=== PATIENT | female | born 1945 | race Caucasian/White ===

== ENCOUNTER → 2016-09-13 | Outpatient (CLI) | payer OTHER ==
[~2016-09-13] MED LIST: ALPR-411 PO; B-CO-25 PO; BUSP5TAB59 PO; CALC600T9 PO; CHOL100010 PO; CHOL1TAB42 PO; METO1TAB66 PO; MULT-190 PO; MULT-506 PO; OMEG10007 PO; PRED1SUS3 OPL
--- NOTE | 2016-09-21 08:25 | CODING QUERY MEDICAL NECESSITY ---
SUPPORTING DIAGNOSIS NEEDED A supporting diagnosis is required for the test/procedure performed on this patient in order for us to be reimbursed by the patient's insurance. Please provide a supporting diagnosis for the following test/procedure listed below next to the test name along with your signature. *If there is no additional diagnosis for this patient that would support the following test/procedure please document that below next to the test/procedure. Test(s)/Procedure(s) that require a supporting diagnosis: * DXA BONE DENSITY DIAGNOSIS: * DOS: 09/13/16 Provider Signature: Date: Thank you Deann Ndiaye Health Information Management Once completed, please kindly fax back to [phone] For questions please call [phone]
== END | disposition home or self-care (01) ==
LOC: C.MAMM 15:00
PROVIDERS: ATTEND Nurse Practitioner Family
DX: M85.80 Other specified disorders of bone density and structure, unspecified site (principal); R29.6 Repeated falls; N91.2 Amenorrhea, unspecified; Z82.62 Family history of osteoporosis

== ENCOUNTER → 2016-12-27 | Outpatient (CLI) | payer OTHER ==
[~2016-12-27] MED LIST changes: +METO-452 PO; -METO1TAB66 PO
[2016-12-27 09:42] LABS: BASO % 0.7 %; BASO ABS # 0.03 K/uL (0-0.2); COMPLETE YES; EOS % 2.9 %; HEMATOCRIT 41.3 % (37-47); LYMPH % 38.5 %; MEAN CELL VOLUME 94.5 fL (80-100); MEAN CORPUSCULAR HEMOGLOBIN 31.6 pg (25-34); MEAN CORPUSCULAR HGB CONC 33.4 g/dl (32-36); MEAN PLATELET VOLUME 9.7 fL (7.4-10.4); MONO % 9.6 %; NEUT % 48.3 %; PLATELET COUNT 219 K/uL (130-400); RED BLOOD COUNT 4.37 M/uL (4.2-5.4); WHITE BLOOD COUNT 4.16 K/uL (4.8-10.8)
[2016-12-27 10:49] LABS: ALT/SGPT 19 U/L (12-78); AST/SGOT 12 U/L (15-37); BLOOD UREA NITROGEN 15 mg/dl (7-18); BUN/CREATININE RATIO 18.3 (10-20); CALCIUM 9.2 mg/dl (8.5-10.1); CARBON DIOXIDE 26 mmol/L (21-32); CHLORIDE 104 mmol/L (98-107); CREATININE 0.84 mg/dl (0.60-1.20); GLUCOSE 98 mg/dl (70-99); MAGNESIUM 2.2 mg/dl (1.8-2.4); POTASSIUM 4.1 mmol/L (3.5-5.1); SODIUM 139 mmol/L (136-145)
[2016-12-27 10:53] LABS: ALB/GLOB RATIO 1.3 (0.9-2); ALKALINE PHOSPHATASE 60 U/L (45-117); CHOLESTEROL 207 mg/dl (0-200); CHOLESTEROL/HDL RATIO 3.1; HDL CHOLESTEROL 67 mg/dl; LDL CHOLESTEROL CALCULATED 108 mg/dl; TRIGLYCERIDES 160 mg/dl (0-150); VERY LOW DENSITY LIPOPROT CALC 32 mg/dl
== END | disposition home or self-care (01) ==
LOC: C.LAB1850 08:04
PROVIDERS: ATTEND Nurse Practitioner Family
DX: F41.8 Other specified anxiety disorders (principal); I10 Essential (primary) hypertension; E55.9 Vitamin D deficiency, unspecified; M85.80 Other specified disorders of bone density and structure, unspecified site; E78.5 Hyperlipidemia, unspecified; R73.9 Hyperglycemia, unspecified

== ENCOUNTER → 2017-12-26 | Outpatient (CLI) | payer OTHER ==
[2017-12-26 09:40] LABS: BASO % 0.7 %; BASO ABS # 0.03 K/uL (0-0.2); EOS % 3.9 %; EOS ABS # 0.16 K/uL (0-0.5); HEMOGLOBIN 13.8 g/dL (12.0-16.0); LYMPH % 41.7 %; LYMPH ABS # 1.71 K/uL (1.2-3.4); MEAN CELL VOLUME 93.5 fL (80-100); MEAN CORPUSCULAR HEMOGLOBIN 32.2 pg (25-34); MEAN CORPUSCULAR HGB CONC 34.5 g/dl (32-36); MEAN PLATELET VOLUME 9.7 fL (7.4-10.4); MONO % 7.6 %; MONO ABS # 0.31 K/uL (0.11-0.59); NEUT % 46.1 %; NEUT ABS # 1.89 K/uL (1.4-6.5); PLATELET COUNT 225 K/uL (130-400); RED CELL DISTRIBUTION WIDTH SD 40.4 fL (36.4-46.3)
[2017-12-26 09:54] LABS: HEMOGLOBIN A1C 5.6 % (4.5-5.6)
[2017-12-26 10:05] LABS: ALBUMIN 3.7 gm/dl (3.4-5.0); ALT/SGPT 18 U/L (12-78); AST/SGOT 12 U/L (15-37); BLOOD UREA NITROGEN 9 mg/dl (7-18); CARBON DIOXIDE 29 mmol/L (21-32); CREATININE 0.79 mg/dl (0.60-1.20); GLUCOSE 84 mg/dl (70-99); POTASSIUM 3.8 mmol/L (3.5-5.1); SODIUM 136 mmol/L (136-145)
[2017-12-26 10:09] LABS: ALKALINE PHOSPHATASE 54 U/L (45-117); CHOLESTEROL 168 mg/dl (0-200); LDL CHOLESTEROL CALCULATED 71 mg/dl; TOTAL PROTEIN 7.1 gm/dl (6.4-8.2)
== END | disposition home or self-care (01) ==
LOC: C.LAB1850 08:12
PROVIDERS: ATTEND Nurse Practitioner Family
DX: F41.8 Other specified anxiety disorders (principal); I10 Essential (primary) hypertension; R73.9 Hyperglycemia, unspecified; E78.5 Hyperlipidemia, unspecified; M85.80 Other specified disorders of bone density and structure, unspecified site

== ENCOUNTER 2021-11-08 18:29 | Inpatient (IN) ==
[2021-11-08] MEDS ORDERED: SODIUM CHLORIDE 0.9% 500 ML IV SCH (18:45)
--- NOTE | 2021-11-08 18:48 | Emergency Department Note ---
Impression & Plan Overdose on Tylenol, Naproxen overdose, Elevated transaminase level, Hypomagnesemia, Memory changes ED Provider Note Provider: Steven Quezada MD DATE OF SERVICE: 11/08/2021 CHIEF COMPLAINT: Overdose HISTORY OF PRESENT ILLNESS: Patient is a 75-year-old female with a history of hyperlipidemia, hypertension, depression anxiety presenting here today via ambulance from her home. EMS report the patient evidently took too many tablets of medication overnight and today. They report the patient took 8 tablets of Pooja-Campbell plus, and approximately half bottles of Tylenol extended release (650mg XR -- bottle 24 cap size) and Aleve (220mg -- 100 cap size). EMS reports the patient took the Pooja-Campbell around midnight and they Tylenol and Aleve over the course of the last several hours to afternoon. They note the patient was weak standing and they had to assist her significantly to the stretcher. An IV was established a small amount of IV fluids given prior to arrival. Patient herself states she took the Pooja-Campbell yesterday but cannot give me a firm time but thinks it was 6-8 tablets. She then states that she did take the Tylenol and Aleve bottles but is unsure exactly how many and when exactly this occurred. Patient states she is unsure why she took them. She states that she was not trying to harm her self. Patient states that she loves her family. Patient states a little earlier she had some nausea but denies currently. Denies any pain at this time. Patient denies drowsiness but states she does feel little bit cool. Patient does report some tinnitus. Patient states that she believes she is fine and just wants to go home. She denies that he has memory issues and states that she does not know the president's name because he is a little. reports the patient over the past 18 months is stopped her home medications and has become very forgetful of recent events. He reports that she does not eat very much and has been having mood swings with high and low moods. Has been reports at night the patient seems to occasionally wander around the house and maybe have hallucinations. He states that he believes she took between 4 to 6 tablets or packets of the Pooja-Campbell last night before midnight when he confiscated them. He was gone between 11:30 AM and 3 PM this afternoon and came back to find her with the Tylenol bottle and an empty bottle of Aleve in the garbage can. He is unsure how much was in these bottles. He reports that he is concerned about her memory and that she may have a dementia component. He does not believe that she was trying to harm her self but that she just does not understand what is going on at times. Reports at times she is having some incontinence. Discussion with him he feels fairly confident that she did not take any medicines after 3 PM when he found her. She did have some stomach upset and gurgling by his report earlier. REVIEW OF SYSTEMS: A total of 10 review of systems was obtained and negative except as stated above in the HPI. PAST MEDICAL HISTORY: As noted above MEDICATIONS: Patient reportedly not taking any prescription medications in the last 18 months. OTC overdose as above. SOCIAL HISTORY: Lives at home with PHYSICAL EXAM: GENERAL: alert and oriented to person but reports that the 2020. Does know the month is November. She is in no acute distress on stretcher resting with eyes closed initially upon entering the room Head: normocephalic and atraumatic EYES: No injection, discharge or icterus. PERRL, EOMI. NECK: Trachea midline. Supple. ENT: Mucous membranes pink and moist. LUNGS: Airway patent. No retractions. Breath sounds clear with good air entry bilaterally. HEART: Regular rate and rhythm. No chest wall tenderness ABDOMEN: Soft and non-tender, without guarding or rebound. SKIN: Acyanotic, warm, dry, without rashes EXTREMITIES: Without swelling, tenderness or deformity NEUROLOGICAL: No focal deficits. No aphasia. No facial droop or slurred speech. No clonus appreciated. Psych: Patient denies SI or HI or hallucinations. Patient does at times seem a bit frustrated with questioning. Not responding to external stimuli during exam. Denies hallucinations to me. Flattened affect. EK bpm normal sinus rhythm. No PVC or PAC. No acute ST segment elevation or depression with a QTC of 504. CONTINUOUS CARDIAC MONITORING: was ordered and showed a heart rate of 70s to 90s bpm in normal sinus rhythm Patient's laboratory studies and imaging reviewed. Differential includes Mood disorder, infection, hypoglycemia, electrolyte abnormalities, cardiac sources, intracerebral event, toxicologic, trauma, neurologic, as well as other pathologies. IMPRESSION/MEDICAL DECISION MAKING: Patient presents with overdose of medication. Some Pooja-Campbell last night and then possibly some Aleve and Tylenol this afternoon. I provides additional inf ormation to the patient is a poor historian regarding amount or timing. There is some question of some decline over the past 18 months and has concerns regarding possible dementia. Patient denies SI or HI to me. I do question if she has capacity to really understand it at this may be more of a dementia picture. Laboratory studies and EKG were obtained. Obvious concern regarding Tylenol and aspirin ingestion. Given report of gradual memory decline a CT of the head to be completed exclude acute intracranial abnormality or obvious mass, otherwise no trauma history reported. Radiology some cerebral atrophy but no other acute intracranial abnormalities noted. Reassuring abdominal exam at this time. Blood work without anemia or leukocytosis. INR 1.3. Sodium within normal limit s as is creatinine. Hemolysis of potassium and AST initially and will require redraw. Lipase not elevated. Bilirubin normal. ALT is elevated at 99 however; AST also later returns mildly elevated. Alcohol level undetectable. Negative Covid test. Was in control recommended lactate as well as repeat salicylate level. Salicylate level is downtrending and this is reassuring. Lactate mildly elevated with a slight anion gap. Given some IV fluids. Poison control recommended institution of 21-hour NAC protocol given the significant Tylenol elevation and unclear exact ingestion time --in agreement.. Repeat Tylenol level from approximately 5 hours after the latest possible ingestion is still severely elevated. Patient does have some ALT elevation noted. Patient and updated and patient was begrudgingly agreeable to stay. 21-hour NAC protocol ordered. Poison control recommended repeat EKG (given a QTC greater than 500ms) after magnesium supplemented. Hospitalist to be contacted. No significant acidosis on VBG. Mild hypokalemia noted and oral supplementation ordered. Patient evaluation after cleared from Tylenol overdose of memory and longer-term safety at home. DIAGNOSIS: Tylenol overdose, naproxen overdose, memory issues, elevated transaminases, hypomagnesemia, hypokalemia DISPOSITION: Hospitalist will evaluate for inpatient care. updated at bedside. Critical Care I have personally spent 48 minutes of critical care time in the direct management of this patient. This includes bedside care, interpretation of diagnostic studies, and testing, discussion with consultants, patient, and family members, and other required patient management activities. These 48 minutes is in excess of all separately billable procedures. Past Med/Surg History Medical History (Updated 11/08/21 @ 20:39 by Christy Bynum PA-C) Facial laceration History of DVT in adulthood Mild concussion Vertigo Surgical History No significant past surgical history Family History Father Heart failure Brother Aortic aneurysm Denies family history of Ovarian cancer Prostate cancer Myocardial infarction Breast cancer Colorectal cancer Social History Smoking Status: Never smoker Second Hand Exposure: No; Hx Alcohol Use: Yes Alcohol type: wine Hx Substance Use: No Preferred Language: Swedish Communication Ability: Effective Visual Impairment: No Limitations Hearing Ability: Normal marital status: Current Living Situation: Spouse and Family current occupational status: retired Feels Safe at Home: Yes Childhood Exposure to Second-Hand Smoke: No Diet Comment: no specifis diet Dental Care, Regularly: Yes Physical Activity Frequency: Daily Physical Activity Frequency Comment: walking Seatbelt Use: always Do you think of yourself as: straight/heterosexual Allergies Allergies Allergy/AdvReac Type Severity Reaction Status Date / Time Fish Containing Products Allergy Intermediate FACIAL Verified 11/08/21 19:40 SWELLING - ANCHOVIES naproxen Allergy Intermediate HIVES AND Verified 11/08/21 19:40 FACIAL SWELLING estrogens, conjugated AdvReac Unknown DVT Verified 11/08/21 19:40 Home Meds Home Medications Medication Instructions Recorded Confirmed acetaminophen 325 mg capsule 650 mg PO QID PRN 11/08/21 11/08/21 (Tylenol) aspirin-sod bicarb-citric acid 325 2 tab PO UD PRN 11/08/21 11/08/21 mg-1,916 mg-1,000 mg efferves tab (Pooja-Manuel Original) ibuprofen 200 mg tablet (Advil) 400 mg PO Q6H PRN 11/08/21 11/08/21 Results & Data (ED) Vital Signs Vital Signs - 24 hr 11/08/21 18:34 11/08/21 18:40 11/08/21 18:45 Temperature 36.6 C Temperature Source Oral Pulse Rate 82 Pulse Rate [Finger] 74 Pulse Rate from SpO2 Sensor Pulse Rhythm [Finger] Regular Respiratory Rate 17 16 Respiratory Effort / Characteristics Non-Labored Non-Labored Respiratory Depth Normal Normal Respiratory Pattern Regular Blood Pressure 130/81 Blood Pressure Mean 97 Pulse Oximetry 100 98 100 Oxygen Delivery Method Room Air Room Air Room Air Sepsis Recent Fever Within 48 Hours No Sepsis New/Unexplained Change in Mental Status N/A Sepsis Action Taken by Nursing No Action Required 11/08/21 18:46 11/08/21 19:59 11/08/21 20:00 Temperature Temperature Source Pulse Rate 80 79 Pulse Rate [Finger] Pulse Rate from SpO2 Sensor 80 85 Pulse Rhythm [Finger] Respiratory Rate 20 24 Respiratory Effort / Characteristics Respiratory Depth Respiratory Pattern Blood Pressure Blood Pressure Mean Pulse Oximetry 100 98 96 Oxygen Delivery Method Room Air Sepsis Recent Fever Within 48 Hours Sepsis New/Unexplained Change in Mental Status Sepsis Action Taken by Nursing Laboratory Data Result diagrams: 11/08/21 18:10 11/08/21 20:30 Lab Results 11/08/21 11/08/21 11/08/21 Range/Units 18:10 18:10 18:10 WBC 6.34 (4.8-10.8) K/uL RBC 4.74 (4.2-5.4) M/uL Hgb 15.2 (12.0-16.0) g/dL Hct 44.0 (37-47) % MCV 92.8 (80-100) fL MCH 32.1 (25-34) pg MCHC 34.5 (32-36) g/dL RDW Std Deviation 42.2 (36.4-46.3) fL RDW Coeff of Jac 12.4 (11.5-14.5) % Plt Count 299 (130-400) K/uL MPV 10.2 (7.4-10.4) fL Immature Gran % (Auto) 0.2 % Neut % (Auto) 74.4 % Lymph % (Auto) 15.1 % [place] % (Auto) 10.1 % Eos % (Auto) 0.0 % Baso % (Auto) 0.2 % Neut # (Auto) 4.72 (1.4-6.5) K/uL Lymph # (Auto) 0.96 L (1.2-3.4) K/uL [place] # (Auto) 0.64 H (0.11-0.59) K/uL Eos # (Auto) 0.00 (0-0.5) K/uL Baso # (Auto) 0.01 (0-0.2) K/uL Immature Gran # (Auto) 0.01 (0.00-0.02) K/uL PT 13.6 H (9.0-12.0) Seconds INR 1.3 H (0.9-1.1) APTT 24.6 (21.0-31.0) Seconds PTT Ratio 0.9 VBG pH (7.36-7.41) VBG pCO2 (38-50) mmHg VBG pO2 mmHg VBG HCO3 mmol/L VBG O2 Saturation % VBG Base Excess mEq/L Barometric Pressure mm/Hg Sodium (136-145) mmol/L Potassium (3.5-5.1) mmol/L Chloride (98-107) mmol/L Carbon Dioxide (21-32) mmol/L Anion Gap (3-11) BUN (6-23) mg/dl Creatinine (0.6-1.2) mg/dl Est Cr Clr Drug Dosing ml/min Est GFR ( Amer) ml/min Est GFR (Non-Af Amer) ml/min BUN/Creatinine Ratio (10-20) Glucose (70-99(Fasting)) mg/dl Lactate (0.4-2.0) mmol/L Calcium (8.5-10.1) mg/dl Magnesium (1.7-2.4) mg/dl Total Bilirubin (0.2-1.0) mg/dl AST (13-39) U/L ALT (7-52) U/L Alkaline Phosphatase (34-104) U/L Total Creatine Kinase (26-192) U/L Total Protein (6.0-8.3) gm/dl Albumin (3.4-5.0) gm/dl Globulin (2.5-4.0) gm/dl Albumin/Globulin Ratio (0.9-2) Lipase (11-82) U/L Salicylates 7.4 (3.0-30) mg/dl Acetaminophen 225 H* (10-30) ug/ml Ethyl Alcohol mg/dL (<10.0) mg/dl SARS-CoV-2, RNA, NAAT (NEGATIVE) 11/08/21 11/08/21 11/08/21 Range/Units 19:30 19:30 19:30 WBC (4.8-10.8) K/uL RBC (4.2-5.4) M/uL Hgb (12.0-16.0) g/dL Hct (37-47) % MCV (80-100) fL MCH (25-34) pg MCHC (32-36) g/dL RDW Std Deviation (36.4-46.3) fL RDW Coeff of Jac (11.5-14.5) % Plt Count (130-400) K/uL MPV (7.4-10.4) fL Immature Gran % (Auto) % Neut % (Auto) % Lymph % (Auto) % [place] % (Auto) % Eos % (Auto) % Baso % (Auto) % Neut # (Auto) (1.4-6.5) K/uL Lymph # (Auto) (1.2-3.4) K/uL [place] # (Auto) (0.11-0.59) K/uL Eos # (Auto) (0-0.5) K/uL Baso # (Auto) (0-0.2) K/uL Immature Gran # (Auto) (0.00-0.02) K/uL PT (9.0-12.0) Seconds INR (0.9-1.1) APTT (21.0-31.0) Seconds PTT Ratio VBG pH (7.36-7.41) VBG pCO2 (38-50) mmHg VBG pO2 mmHg VBG HCO3 mmol/L VBG O2 Saturation % VBG Base Excess mEq/L Barometric Pressure mm/Hg Sodium 136 (136-145) mmol/L Potassium (3.5-5.1) mmol/L Chloride 100 (98-107) mmol/L Carbon Dioxide 23 (21-32) mmol/L Anion Gap 13 H (3-11) BUN 9 (6-23) mg/dl Creatinine 0.80 (0.6-1.2) mg/dl Est Cr Clr Drug Dosing 48.2 ml/min Est GFR ( Amer) 83.6 ml/min Est GFR (Non-Af Amer) 72.1 ml/min BUN/Creatinine Ratio 11.3 (10-20) Glucose 129 H (70-99(Fasting)) mg/dl Lactate (0.4-2.0) mmol/L Calcium 8.9 (8.5-10.1) mg/dl Magnesium (1.7-2.4) mg/dl Total Bilirubin 0.7 (0.2-1.0) mg/dl AST (13-39) U/L ALT 99 H (7-52) U/L Alkaline Phosphatase 53 (34-104) U/L Total Creatine Kinase 86 (26-192) U/L Total Protein 6.3 (6.0-8.3) gm/dl Albumin 3.9 (3.4-5.0) gm/dl Globulin 2.4 L (2.5-4.0) gm/dl Albumin/Globulin Ratio 1.6 (0.9-2) Lipase 28 (11-82) U/L Salicylates 6.2 (3.0-30) mg/dl Acetaminophen 216 H* (10-30) ug/ml Ethyl Alcohol mg/dL < 10.0 (<10.0) mg/dl SARS-CoV-2, RNA, NAAT (NEGATIVE) 11/08/21 11/08/21 11/08/21 Range/Units 19:53 20:30 20:40 WBC (4.8-10.8) K/uL RBC (4.2-5.4) M/uL Hgb (12.0-16.0) g/dL Hct (37-47) % MCV (80-100) fL MCH (25-34) pg MCHC (32-36) g/dL RDW Std Deviation (36.4-46.3) fL RDW Coeff of Jac (11.5-14.5) % Plt Count (130-400) K/uL MPV (7.4-10.4) fL Immature Gran % (Auto) % Neut % (Auto) % Lymph % (Auto) % [place] % (Auto) % Eos % (Auto) % Baso % (Auto) % Neut # (Auto) (1.4-6.5) K/uL Lymph # (Auto) (1.2-3.4) K/uL [place] # (Auto) (0.11-0.59) K/uL Eos # (Auto) (0-0.5) K/uL Baso # (Auto) (0-0.2) K/uL Immature Gran # (Auto) (0.00-0.02) K/uL PT (9.0-12.0) Seconds INR (0.9-1.1) APTT (21.0-31.0) Seconds PTT Ratio VBG pH 7.46 H (7.36-7.41) VBG pCO2 35 L (38-50) mmHg VBG pO2 25 mmHg VBG HCO3 24 mmol/L VBG O2 Saturation < 60.0 % VBG Base Excess 0.7 mEq/L Barometric Pressure 731.5 mm/Hg Sodium (136-145) mmol/L Potassium 3.1 L (3.5-5.1) mmol/L Chloride (98-107) mmol/L Carbon Dioxide (21-32) mmol/L Anion Gap (3-11) BUN (6-23) mg/dl Creatinine (0.6-1.2) mg/dl Est Cr Clr Drug Dosing ml/min Est GFR ( Amer) ml/min Est GFR (Non-Af Amer) ml/min BUN/Creatinine Ratio (10-20) Glucose (70-99(Fasting)) mg/dl Lactate 2.7 H* (0.4-2.0) mmol/L Calcium (8.5-10.1) mg/dl Magnesium 1.6 L (1.7-2.4) mg/dl Total Bilirubin (0.2-1.0) mg/dl AST 69 H (13-39) U/L ALT (7-52) U/L Alkaline Phosphatase (34-104) U/L Total Creatine Kinase (26-192) U/L Total Protein (6.0-8.3) gm/dl Albumin (3.4-5.0) gm/dl Globulin (2.5-4.0) gm/dl Albumin/Globulin Ratio (0.9-2) Lipase (11-82) U/L Salicylates (3.0-30) mg/dl Acetaminophen (10-30) ug/ml Ethyl Alcohol mg/dL (<10.0) mg/dl SARS-CoV-2, RNA, NAAT (NEGATIVE) 11/08/21 Range/Units Unknown WBC (4.8-10.8) K/uL RBC (4.2-5.4) M/uL Hgb (12.0-16.0) g/dL Hct (37-47) % MCV (80-100) fL MCH (25-34) pg MCHC (32-36) g/dL RDW Std Deviation (36.4-46.3) fL RDW Coeff of Jac (11.5-14.5) % Plt Count (130-400) K/uL MPV (7.4-10.4) fL Immature Gran % (Auto) % Neut % (Auto) % Lymph % (Auto) % [place] % (Auto) % Eos % (Auto) % Baso % (Auto) % Neut # (Auto) (1.4-6.5) K/uL Lymph # (Auto) (1.2-3.4) K/uL [place] # (Auto) (0.11-0.59) K/uL Eos # (Auto) (0-0.5) K/uL Baso # (Auto) (0-0.2) K/uL Immature Gran # (Auto) (0.00-0.02) K/uL PT (9.0-12.0) Seconds INR (0.9-1.1) APTT (21.0-31.0) Seconds PTT Ratio VBG pH (7.36-7.41) VBG pCO2 (38-50) mmHg VBG pO2 mmHg VBG HCO3 mmol/L VBG O2 Saturation % VBG Base Excess mEq/L Barometric Pressure mm/Hg Sodium (136-145) mmol/L Potassium (3.5-5.1) mmol/L Chloride (98-107) mmol/L Carbon Dioxide (21-32) mmol/L Anion Gap (3-11) BUN (6-23) mg/dl Creatinine (0.6-1.2) mg/dl Est Cr Clr Drug Dosing ml/min Est GFR ( Amer) ml/min Est GFR (Non-Af Amer) ml/min BUN/Creatinine Ratio (10-20) Glucose (70-99(Fasting)) mg/dl Lactate (0.4-2.0) mmol/L Calcium (8.5-10.1) mg/dl Magnesium (1.7-2.4) mg/dl Total Bilirubin (0.2-1.0) mg/dl AST (13-39) U/L ALT (7-52) U/L Alkaline Phosphatase (34-104) U/L Total Creatine Kinase (26-192) U/L Total Protein (6.0-8.3) gm/dl Albumin (3.4-5.0) gm/dl Globulin (2.5-4.0) gm/dl Albumin/Globulin Ratio (0.9-2) Lipase (11-82) U/L Salicylates (3.0-30) mg/dl Acetaminophen (10-30) ug/ml Ethyl Alcohol mg/dL (<10.0) mg/dl SARS-CoV-2, RNA, NAAT NEGATIVE (NEGATIVE) Administered Medications Discontinued Medications Sodium Chloride (Nss) 500 mls @ 999 mls/hr IV .Q31M MUKESH Stop: 11/08/21 19:15 Last Admin: 11/08/21 19:11 Dose: 999 mls/hr Documented by: [id number] Acetylcysteine 7,550 mg/ (Dextrose) 237.75 mls @ 200 mls/hr IV ONCE ONE; Protocol Stop: 11/08/21 20:50 Last Admin: 11/08/21 20:32 Dose: 200 mls/hr Documented by: [id number] Imaging Data Radiologist's Impression: Head CT 11/08/21 18:41 CT head/brain wo con CLINICAL HISTORY: Patient confusion. Reported accidental overdose COMPARISON STUDY: 02/28/2014 CT DOSE: 537.48 mGy.cm TECHNIQUE: Standard CT of the Brain was performed without IV contrast. A dose lowering technique was utilized adhering to the principles of ALARA. FINDINGS: Extraaxial space: There is no evidence for subdural hematoma. There are no extra-axial fluid collections. Ventricles and cisterns: The ventricles are normal in size and configuration. There is no evidence for midline shift or mass effect. Parenchyma: There is no subarachnoid or intraparenchymal hemorrhage. There is no evidence for an acute infarct or cerebral edema. There is mild cerebral cortical atrophy present. There is homogeneous attenuation of the brain parenchyma. There are no gross mass lesions. Osseous structures: There is no evidence for an acute fracture. The visualized paranasal sinuses are clear. The mastoid air cells are clear bilaterally. Soft tissues: There is no evidence for focal soft tissue swelling. IMPRESSION: 1. No acute intracerebral pathology. 2. Mild cerebral cortical atrophy. ACT 112: Negative or not required by law. Electronically signed by: Elvis Melendrez M.D. 11/08/2021 7:09 PM Discharge Plan Visit Data Chief Complaint: Overdose (Accidental) ED Provider: Steven Quezada Discharge Problem: Overdose on Tylenol, Naproxen overdose, Elevated transaminase level, Hypomagnesemia, Memory changes Patient Disposition: Being Evaluated by Hospitalist Forms Stand Alone Forms: My [facility] Prescriptions Prescriptions: No Action ibuprofen [Advil] 200 mg Tablet 400 mg PO Q6H PRN (Reason: Pain) RF: 0 Pooja-Campbell Original 325-1,916-1,000 mg Tablet, Effervescent 2 tab PO UD PRN (Reason: ..) RF: 0 acetaminophen [Tylenol] 325 mg Capsule 650 mg PO QID PRN (Reason: Pain) RF: 0 Referrals Referrals: Ranjan Bermudez III, CRNP [Primary Care Provider] -
[2021-11-08 18:56] LABS: Basophils # (auto) 0.01 K/uL (0-0.2); Basophils % (auto) 0.2 %; Hemoglobin 15.2 g/dL (12.0-16.0); Immature Granulocytes # (auto) 0.01 K/uL (0.00-0.02); Immature Granulocytes % (auto) 0.2 %; Lymphocytes # (auto) 0.96 K/uL (1.2-3.4); Lymphocytes % (auto) 15.1 %; Mean Corpuscular Hemoglobin 32.1 pg (25-34); Mean Corpuscular Hgb Conc 34.5 g/dL (32-36); Mean Corpuscular Volume 92.8 fL (80-100); Mean Platelet Volume 10.2 fL (7.4-10.4); Monocytes # (auto) 0.64 K/uL (0.11-0.59); Monocytes % (auto) 10.1 %; Neutrophils # (auto) 4.72 K/uL (1.4-6.5); Neutrophils % (auto) 74.4 %; Platelet Count 299 K/uL (130-400); RDW Coefficient of Variation 12.4 % (11.5-14.5); RDW Standard Deviation 42.2 fL (36.4-46.3); Red Blood Count 4.74 M/uL (4.2-5.4); White Blood Count 6.34 K/uL (4.8-10.8)
[2021-11-08 19:06] LABS: INR 1.3 (0.9-1.1); Partial Thromboplastin Ratio 0.9; Partial Thromboplastin Time 24.6 Seconds (21.0-31.0); Prothrombin Time 13.6 Seconds (9.0-12.0)
--- NOTE | 2021-11-08 19:10 | CT Scan Report ---
CT head/brain wo con CLINICAL HISTORY: Patient confusion. Reported accidental overdose COMPARISON STUDY: 02/28/2014 CT DOSE: 537.48 mGy.cm TECHNIQUE: Standard CT of the Brain was performed without IV contrast. A dose lowering technique was utilized adhering to the principles of ALARA. FINDINGS: Extraaxial space: There is no evidence for subdural hematoma. There are no extra-axial fluid collecti ons. Ventricles and cisterns: The ventricles are normal in size and configuration. There is no evidence fo r midline shift or mass effect. Parenchyma: There is no subarachnoid or intraparenchymal hemorrhage. There is no evidence for an acut e infarct or cerebral edema. There is mild cerebral cortical atrophy present. There is homogeneous at tenuation of the brain parenchyma. There are no gross mass lesions. Osseous structures: There is no evidence for an acute fracture. The visualized paranasal sinuses are clear. The mastoid air cells are clear bilaterally. Soft tissues: There is no evidence for focal soft tissue swelling. IMPRESSION: 1. No acute intracerebral pathology. 2. Mild cerebral cortical atrophy. ACT 112: Negative or not required by law. Electronically signed by: Elvis Melendrez M.D. 11/08/2021 7:09 PM
[2021-11-08 19:30] LABS: Salicylate 7.4 mg/dl (3.0-30)
[2021-11-08] MEDS ORDERED: DEXTROSE 5% IV ONE ×3 (19:39)
[2021-11-08] MEDS ORDERED: ACETYLCYSTEINE IV ONE ×3 (19:39)
[2021-11-08 20:10] LABS: Albumin Globulin Ratio 1.6 (0.9-2); Albumin Level 3.9 gm/dl (3.4-5.0); BUN Creatinine Ratio 11.3 (10-20); Bilirubin,Total 0.7 mg/dl (0.2-1.0); Calcium 8.9 mg/dl (8.5-10.1); Creatinine Clr Calc Pharmacy 48.2 ml/min; Est GFR (African American) 83.6 ml/min; Est GFR (Non-African American) 72.1 ml/min; Globulin 2.4 gm/dl (2.5-4.0); Total Protein 6.3 gm/dl (6.0-8.3)
[2021-11-08 20:11] LABS: Salicylate 6.2 mg/dl (3.0-30)
[2021-11-08] MEDS ORDERED: SODIUM CHLORIDE 0.9% 500 ML IV ONE (20:24)
--- NOTE | 2021-11-08 20:33 | History & Physical Report ---
Date of Service November 08, 2021 Assessment & Plan (1) Overdose: Plan: -Tylenol, aspirin, Pooja-Brandeis==>PT 13.6, INR 1.3; AG 13, lactate 2.7, ALT 99, AST 69. Salicylate level initially 225, 216 one hour later, is downtrending and this is reassuring. -Seemingly unintentional, patient has hx of depression/anxiety, but also reports declining cognition since then, seems as though there is some underlying dementia. -Poison control contacted by ED, recommending institution of 21-hour NAC protocol given the significant Tylenol elevation and unclear exact ingestion time. Repeat Tylenol level from approximately 5 hours after the latest possible ingestion is still severely elevated. Patient does have some ALT elevation noted, Also recommended repeat EKG (given a QTC greater than 500ms) after magnesium supplemented. - Per poison control recs: ordered EKG and magnesium in the AM, and ordered LFTs and PT/PTT/INR to be taken on 3/8 AM (~12 hours after NAC infusion) -IVF with LRs at 80cc/hr. -UDS, UA pending. -Ordered CBC, BMP, LFTs, PT/INR as well as salicylate and acetaminophen levels for AM labs. Can order more frequently throughout the night as indicated by poison control. -A psychiatric consult was placed due to patient's sever anxiety, she does have a longstanding history of this however due to the pandemic it has become quite severe. Patient has lost 60 lbs since pandemic began due to self-induced diet, has not left the house due to severe anxiety over virus. Also notes of evidence of dementia at home, impacting her ability to care for herself. (2) Transaminitis: Plan: -In the setting of acute Tylenol ingestion, see above. (3) Hypokalemia: Plan: -3.1 in ED, given 40 mEq KCl. Also given 1 gm Mg++, level was 1.6 in ED. -Trend BMP w/ Mg++. (4) Hypertension: Plan: -Had previously been on metoprolol succ 50 mg, per , however, has not been taking anything for the past year and a half as she wishes not to be on any medications. (5) Hyperlipidemia: Plan: -Previously on atorvastatin 10 mg, however has not been taking anything for the past year and a half as she wishes not to be on any medications. (6) Depression with anxiety: Plan: -Has been on several different medications for this in the past, however has not been taking anything for the past year and a half as she wishes not to be on any medications. Most recently on trazodone per PCP in 2019. -States she is not experiencing SI/HI currently, did not take pills intentionally today. Plan: -Admit to PCU. -SCDs for DVT ppx, holding chemo ppx for now. -DNR/DNI History of Present Illness Chief Complaint: accidental Tylenol overdose Primary Care Provider: Ranjan Bermudez, III, CHIE[facility] Patient is a 75-year-old female with a history of hyperlipidemia, hypertension, depression/anxiety presenting here today via ambulance from her home. EMS report the patient evidently took too many tablets of medication overnight and today. They report the patient took 8 tablets of Pooja-Brandeis plus, and approximately half bottle of Tylenol extended release (650mg XR -- bottle 24 cap size) and Aleve (220mg -- 100 cap size).EMS reports the patient took the Pooja- Brandeis around midnight and Tylenol and Aleve over the course of the last several hours this afternoon.Upon my exam, patient is withdrawn and be grudgingly participates in history, she states she does not remember when or why she took the medications, also struggles to quantify the ingestion. She is otherwise without complaints, no fever/chills, nausea, vomiting, abdominal pain, chest pain, SOB, diarrhea, no SI/HI, no tinnitus. states that she had been in her usual state of health the past few days, although for the past year and a half or so, she has shown signs of cognitive decline. In ED, patient hemodynamically stable with VS within normal limits, A+O x3. CBC unremarkable, K+ 3.1, Mg++ 1.6. PT 13.6, INR 1.3; AG 13, lactate 2.7, ALT 99, AST 69. On VBG, pH 7.45, CO2 35. Tylenol level initially 225, 216 one hour later. Poison control contacted by ED, recommending institution of 21-hour NAC protocol given the significant Tylenol elevation and unclear exact ingestion time. Patient also received IVF, had K+ and Mg++ repleted. Hospitalist service was consulted for further evaluation and admission. Allergies Allergy/AdvReac Type Severity Reaction Status Date / Time Fish Containing Products Allergy Intermediate FACIAL Verified 11/08/21 19:40 SWELLING - ANCHOVIES naproxen Allergy Intermediate HIVES AND Verified 11/08/21 19:40 FACIAL SWELLING estrogens, conjugated AdvReac Unknown DVT Verified 11/08/21 19:40 Home Medications Medication Instructions Recorded Confirmed Type acetaminophen 325 mg capsule 650 mg PO QID PRN 11/08/21 11/08/21 History (Tylenol) aspirin-sod bicarb-citric acid 325 2 tab PO UD PRN 11/08/21 11/08/21 History mg-1,916 mg-1,000 mg efferves tab (Pooja-Brandeis Original) ibuprofen 200 mg tablet (Advil) 400 mg PO Q6H PRN 11/08/21 11/08/21 History Past Med/Surg History Medical History (Updated 11/16/21 @ 14:22 by Robert Shepherd MD) Facial laceration History of DVT in adulthood Mild concussion Vertigo Surgical History No significant past surgical history Family History Father Heart failure Brother Aortic aneurysm Denies family history of Ovarian cancer Prostate cancer Myocardial infarction Breast cancer Colorectal cancer Social History Smoking Status: Never smoker Second Hand Exposure: No; Hx Alcohol Use: No Hx Substance Use: No Preferred Language: Albanian Communication Ability: Impaired Visual Impairment: No Limitations Hearing Ability: Normal Money Examiner Required: No Beliefs That Will Affect Care: None marital status: Current Living Situation: Spouse Current Living Situation Comment: with current occupational status: retired Other Information That Helps Us Care for You: No Feels Safe at Home: Yes Childhood Exposure to Second-Hand Smoke: No Diet Comment: no specifis diet Dental Care, Regularly: Yes Physical Activity Frequency: Daily Physical Activity Frequency Comment: walking Seatbelt Use: always Do you think of yourself as: straight/heterosexual Assistive Devices: None Review of Systems Review of Systems: Constitutional: No fever, sweats or chills Eyes: No diplopia, no worsening or blurred vision ENT: normal hearing, no trouble swallowing Respiratory: No cough, sputum, dyspnea at rest or on exertion Cardiovascular: No chest pain, tightness or palpitations Abdomen: No pain, nausea, vomiting, diarrhea or constipation Musculoskeletal: No joint pain, calf pain, swelling Neurologic: No weakness, numbness/tingling, or balance problems Psychiatric: No anxiety or depression Skin: No rash or itch Physical Exam Physical Exam: General: awake, alert, no apparent distress Head: Normocephalic, atraumatic ENT: PERRL, EOMI, no pharyngeal exudate, mucous membranes moist Chest: Clear to auscultation, on room air, no adventitious breath sounds Cardiac: Regular rate and rhythm, no murmur, no JVD, normal peripheral pulses, good capillary refill Abdominal: NABS x 4 quadrants, soft, nontender to palpation, no rebound, guardi ng or tenderness Extremities: Normal inspection, no peripheral edema or erythema, calfs nontender to palpation Psych: Normal mood and affect Neuro: AAO x 3, strength intact bilaterally and rated 5/5, no motor deficits, speech is clear, no peripheral sensory deficits Skin: no rash or erythema Results & Data Results & Data ([facility]) Vital Signs (Past 12 Hours) Vital Signs Temp Pulse Resp BP Pulse Ox 11/08/21 20:00 79 24 96 11/08/21 19:59 80 20 98 11/08/21 18:46 100 11/08/21 18:45 100 11/08/21 18:34 36.6 C 82 17 130/81 100 Laboratory Results Abnormal lab results 11/08/21 11/08/21 11/08/21 Range/Units 18:10 18:10 18:10 Lymph # (Auto) 0.96 L (1.2-3.4) K/uL [place] # (Auto) 0.64 H (0.11-0.59) K/uL PT 13.6 H (9.0-12.0) Seconds INR 1.3 H (0.9-1.1) VBG pH (7.36-7.41) VBG pCO2 (38-50) mmHg Potassium (3.5-5.1) mmol/L Anion Gap (3-11) Glucose (70-99(Fasting)) mg/dl Lactate (0.4-2.0) mmol/L Magnesium (1.7-2.4) mg/dl AST (13-39) U/L ALT (7-52) U/L Globulin (2.5-4.0) gm/dl Acetaminophen 225 H* (10-30) ug/ml 11/08/21 11/08/21 11/08/21 Range/Units 19:30 19:30 19:53 Lymph # (Auto) (1.2-3.4) K/uL [place] # (Auto) (0.11-0.59) K/uL PT (9.0-12.0) Seconds INR (0.9-1.1) VBG pH (7.36-7.41) VBG pCO2 (38-50) mmHg Potassium (3.5-5.1) mmol/L Anion Gap 13 H (3-11) Glucose 129 H (70-99(Fasting)) mg/dl Lactate 2.7 H* (0.4-2.0) mmol/L Magnesium (1.7-2.4) mg/dl AST (13-39) U/L ALT 99 H (7-52) U/L Globulin 2.4 L (2.5-4.0) gm/dl Acetaminophen 216 H* (10-30) ug/ml 11/08/21 11/08/21 Range/Units 20:30 20:40 Lymph # (Auto) (1.2-3.4) K/uL [place] # (Auto) (0.11-0.59) K/uL PT (9.0-12.0) Seconds INR (0.9-1.1) VBG pH 7.46 H (7.36-7.41) VBG pCO2 35 L (38-50) mmHg Potassium 3.1 L (3.5-5.1) mmol/L Anion Gap (3-11) Glucose (70-99(Fasting)) mg/dl Lactate (0.4-2.0) mmol/L Magnesium 1.6 L (1.7-2.4) mg/dl AST 69 H (13-39) U/L ALT (7-52) U/L Globulin (2.5-4.0) gm/dl Acetaminophen (10-30) ug/ml Diagnostic Findings Head CT 11/08/21 18:41 CT head/brain wo con CLINICAL HISTORY: Patient confusion. Reported accidental overdose COMPARISON STUDY: 02/28/2014 CT DOSE: 537.48 mGy.cm TECHNIQUE: Standard CT of the Brain was performed without IV contrast. A dose lowering technique was utilized adhering to the principles of ALARA. FINDINGS: Extraaxial space: There is no evidence for subdural hematoma. There are no extra-axial fluid collections. Ventricles and cisterns: The ventricles are normal in size and configuration. There is no evidence for midline shift or mass effect. Parenchyma: There is no subarachnoid or intraparenchymal hemorrhage. There is no evidence for an acute infarct or cerebral edema. There is mild cerebral cortical atrophy present. There is homogeneous attenuation of the brain parenchyma. There are no gross mass lesions. Osseous structures: There is no evidence for an acute fracture. The visualized paranasal sinuses are clear. The mastoid air cells are clear bilaterally. Soft tissues: There is no evidence for focal soft tissue swelling. IMPRESSION: 1. No acute intracerebral pathology. 2. Mild cerebral cortical atrophy. ACT 112: Negative or not required by law. Electronically signed by: Elvis Melendrez M.D. 11/08/2021 7:09 PM ECG Additional Comments: Normal sinus rhythm Normal ECG No previous ECGs available Code Status & VTE Plan Code Status DNR/DNI. Supervising Physician Co-Signing Physician Notes Attending addendum: I have physically seen this patient, have supervised the GUSTAVO's activities, and agree with the H&P unless as otherwise noted. Assessment and Plan: Unintentional acetaminophen overdose- Acetaminophen level 216 upon admission, with ALT 99 Continue Acetadote per protocol LR at 80 mils per hour Recheck laboratory serially as directed by poison control Consult psychiatry Remaining orders and notations as noted PG Care Time/CCT Total # of Minutes Spent Total Time Spent with Patient: Total time spent is greater than 50% in coordination of care (as documented) at patient's floor/unit and/or counseling patient: Coding Level of Care Code 77532 Initial Inpt Care Lvl 3 Diagnoses Overdose T50.901A Hypertension I10 Hyperlipidemia E78.5 Depression with anxiety F41.8 Hypokalemia E87.6 Transaminitis R74.01
[2021-11-08 20:50] LABS: Base Excess VBG 0.7 mEq/L; HCO3 VBG 24 mmol/L; PCO2 VBG 35 mmHg (38-50); PO2 VBG 25 mmHg; pH VBG 7.46 (7.36-7.41)
[2021-11-08 20:51] LABS: Oxygen Saturation VBG < 60.0 %
[2021-11-08 20:54] LABS: Magnesium 1.6 mg/dl (1.7-2.4); Potassium 3.1 mmol/L (3.5-5.1)
[2021-11-08] MEDS ORDERED: POTASSIUM CHLORIDE CRTAB 20 MEQ TABCR PO STA (20:58)
[2021-11-08] MEDS ORDERED: LACTATED RINGER'S 1,000 ML IV SCH (21:30)
[2021-11-08] MEDS ORDERED: LORazepam 2 MG/1 ML VIAL IV STA (22:12)
[2021-11-08] MEDS ORDERED: LORazepam 2 MG/1 ML VIAL IV PRN (22:12)
[2021-11-08] MEDS: MAGNESIUM SULFATE / D5W 1 GM/100 ML BAG IV SCH (23:50)
[2021-11-09] MEDS: MAGNESIUM SULFATE / D5W 1 GM/100 ML BAG IV SCH (00:55)
[2021-11-09 08:26] LABS: Basophils # (auto) 0.02 K/uL (0-0.2); Basophils % (auto) 0.4 %; Hematocrit (blood only) 36.7 % (37-47); Hemoglobin 12.7 g/dL (12.0-16.0); Lymphocytes # (auto) 0.82 K/uL (1.2-3.4); Mean Corpuscular Hemoglobin 31.9 pg (25-34); Mean Corpuscular Hgb Conc 34.6 g/dL (32-36); Mean Corpuscular Volume 92.2 fL (80-100); Mean Platelet Volume 9.8 fL (7.4-10.4); Monocytes # (auto) 0.26 K/uL (0.11-0.59); Monocytes % (auto) 4.7 %; Neutrophils # (auto) 4.38 K/uL (1.4-6.5); Neutrophils % (auto) 79.9 %; Platelet Count 178 K/uL (130-400); RDW Coefficient of Variation 12.5 % (11.5-14.5); RDW Standard Deviation 42.6 fL (36.4-46.3); Red Blood Count 3.98 M/uL (4.2-5.4); White Blood Count 5.48 K/uL (4.8-10.8)
[2021-11-09 08:33] LABS: Prothrombin Time 20.6 Seconds (9.0-12.0)
--- NOTE | 2021-11-09 08:49 | Medical Student Progress Note ---
Date of Service November 09, 2021 Assessment & Plan (1) Overdose: Plan: -ingestion of Tylenol, Aspirin, Pooja-Phoenix (unknown quantity) - on 11/08: PT 13.6, INR 1.3; AG 13, lactate 2.7, ALT 99, AST 69. Salicylate level 7.4--> 6.2 -Seemingly unintentional, patient has hx of depression/anxiety, but also reports declining cognition since then, seems as though there is some underlying dementia. -Poison control contacted by ED, recommending institution of 21-hour NAC protocol given the significant Tylenol elevation and unclear exact ingestion time. - acetaminophen level trending down (216 to 106) - Per poison control recs: ordered EKG and magnesium, and ordered LFTs and PT/PTT/INR to be taken on 3/7 AM (~12 hours after NAC infusion) -IVF with LRs at 80cc/hr. -UDS, UA pending -Trend CBC, BMP, LFTs, PT/INR as well as salicylate and acetaminophen levels for AM labs (2) Liver failure, acute: Plan: - liver failure 2/2 acetaminophen overdose - AST 267 - ALT 351 - total bili: 1.7 - direct bili: .8 - PT: 20.6 - INR: 2.0 - Hep C screening negative - no jaundice on PE - continue trending with AM labs and monitoring for sxs of liver failure (3) Hypertension: Plan: - pt was on metoprolol 50 mg previously, has not taken since Apr 2020 - monitor BP to see if pt is hypertensive - previously told care team not interested in taking medication, consider discussion with patient to restart rx if indicated (4) Hypokalemia: Plan: - most recently trending up (2.5 --> 3.4) - continue trending - continue repleting as needed (5) Hyperglycemia: Plan: - trending down 129--> 108 --> 107 - consider A1C (last one was 03/2020; 5.7) - continue trending and monitoring for sxs of diabetes mellitus (6) Hyperlipidemia: Plan: - pt previously on atorvastatin 10 mg, pt has not taken since Apr 2020 - lipid panel to evaluate if pt at risk for CAD - consider discussion with patient about restarting rx (7) Depression with anxiety: Plan: - A psychiatric consult was placed due to patient's severe anxiety, she does have a longstanding history of this however due to the pandemic it has become quite severe. Patient has lost 60 lbs since pandemic began due to self-induced diet, has not left the house due to severe anxiety over virus. Also notes of evidence of dementia at home, impacting her ability to care for herself. - appreciate psych recs (8) Prolonged QT interval: Plan: - repeat EKG 3/8 AM - QT= 454 ms - QTc= 567 ms - continue cardiac monitoring, monitoring for cardiac sxs (9) Cognitive and behavioral changes: Plan: - 2 year h/o declining short term memory and acute confusion episodes, auditory hallucinations (talking to people who are not there), paranoia (opening doors at night looking for things)and weeks of stuporous episodes (staying in bed for weeks at a time) per pt's Admission and Anticipated Discharge Date Admission Date: November 08, 2021 Supervising Attestation patient not seen today 11/09/2021 Subjective Patient is a 75-year-old female with a history of hyperlipidemia, hypertension, DVT, and depression/anxiety who presented to the ED on 11/08 via ambulance from her home after ingesting an unknown quantity of Pooja-Phoenix, Acetaminophen, and Aleve. She presented with withdrawal and confusion. At approximately 10:22 last night, patient received 1 mg of Lorazepam in the ED due to combativeness and agitation. Otherwise, no acute events overnight. Patient was in sinus rhythm in the 70s overnight and this morning. This morning, 1:1 sitter reports patient independently used the restroom, with noticeable unsteadiness. Around 8:00 am, pt was profoundly fatigued and unable to stay awake for more than a few seconds at a time and unable to answer questions. Patient denied abdominal pain before falling back to sleep. Patient's contributed history via phone this afternoon. Pt has a long- standing history of anxiety and depression, which was treated with Prozac in 2019, with no other psychiatric diagnoses. She had experienced side effects and wanted medication adjustments but providers were not available. Pt's anxiety acutely worsened during November 2019, coinciding with the start of the COVID-19 pandemic. At this time, pt has noticeably decreased appetite. Pt sought psychiatric care, but was unable to be seen by a provider. In Apr 2020, patient was hospitalized for malnutrition and electrolyte abnormalities. Patient again sought psychiatric care, unsuccessfully. Since then, patient has acutely worsened, losing approximately 60 pounds in 2 years and refusing all medications, even for chronic conditions. When asks about lack of eating, patient states "I am not hungry". Additionally, patient has a 2-year history of labile mood and cognitive decline (mostly Short Term Memory and acute confusion). She is unable to care for herself at this time. Pt's has observed patient "talking to people who are not there." Patient will have nighttime episodes where she will get up and exercise and open doors, looking for things and people that are not there. Patient also will have episodes of insomnia that can last for days, where patient will stare at the ceiling for hours. 1 year ago, pt told "the room is bugged" and to be careful about what they say. Pt will also have episodes of stupor where she will stay in bed for weeks and say things like "I am dying" and "I am in heaven". 2 weeks ago, pt had an episode of incontinence due to not leaving bed. The stuporous and episodes of increased activity appear to occur in cycles, per pt . He reports pt STM is worsening and that her mood is "all over the place". Pt's says that he is not sure if the voices pt hears might have told her to take the pills on 11/08. He feels that she may have taken so many pills because she forgot she previously took them. Of note, patient's also shared he feels pt may have ROSIO due to episodes of her not breathing for ~20 seconds at night before catching her breath and resuming breathing. Review of Systems Review of Systems: Unobtainable due to reduced consciousness Gastrointestinal: Denies abdominal pain Physical Exam Constitutional: + thin, + frail appearing, + lethargic and + underweight Neck: trachea midline, no thyromegaly Respiratory: normal respiratory effort, lungs clear to auscultation Cardiovascular: RRR, no murmur, no edema Heart Sounds: normal S1 and normal S2; no gallop, no murmur and no cardiac rub Vessels: normal peripheral pulses; no JVD Gastrointestinal (Abdomen): Inspection/Auscultation: normal bowel sounds Skin: no rashes, warm and dry Results & Data ([facility]) Vital Signs (Past 12 Hours) Vital Signs Temp Pulse Pulse Resp BP Pulse Ox 11/09/21 07:01 36.6 C 78 16 96/58 L 98 11/09/21 06:28 83 11/09/21 05:00 36.7 C 93 H 16 110/61 97 11/09/21 01:00 91 H 11/08/21 23:00 36.4 C L 82 102/58 L 98 Laboratory Results Laboratory Results WBC 5.48 K/uL (4.8-10.8) 11/09/21 08:02 RBC 3.98 M/uL (4.2-5.4) L 11/09/21 08:02 Hgb 12.7 g/dL (12.0-16.0) 11/09/21 08:02 Hct 36.7 % (37-47) L 11/09/21 08:02 MCV 92.2 fL (80-100) 11/09/21 08:02 MCH 31.9 pg (25-34) 11/09/21 08:02 MCHC 34.6 g/dL (32-36) 11/09/21 08:02 RDW Std Deviation 42.6 fL (36.4-46.3) 11/09/21 08:02 RDW Coeff of Jac 12.5 % (11.5-14.5) 11/09/21 08:02 Plt Count 178 K/uL (130-400) 11/09/21 08:02 MPV 9.8 fL (7.4-10.4) 11/09/21 08:02 Immature Gran % (Auto) 0.0 % 11/09/21 08:02 Neut % (Auto) 79.9 % 11/09/21 08:02 Lymph % (Auto) 15.0 % 11/09/21 08:02 [place] % (Auto) 4.7 % 11/09/21 08:02 Eos % (Auto) 0.0 % 11/09/21 08:02 Baso % (Auto) 0.4 % 11/09/21 08:02 Neut # (Auto) 4.38 K/uL (1.4-6.5) 11/09/21 08:02 Lymph # (Auto) 0.82 K/uL (1.2-3.4) L 11/09/21 08:02 [place] # (Auto) 0.26 K/uL (0.11-0.59) 11/09/21 08:02 Eos # (Auto) 0.00 K/uL (0-0.5) 11/09/21 08:02 Baso # (Auto) 0.02 K/uL (0-0.2) 11/09/21 08:02 Immature Gran # (Auto) 0.00 K/uL (0.00-0.02) 11/09/21 08:02 PT 20.6 Seconds (9.0-12.0) H 11/09/21 08:02 INR 2.0 (0.9-1.1) H 11/09/21 08:02 APTT 24.6 Seconds (21.0-31.0) 11/08/21 18:10 PTT Ratio 0.9 11/08/21 18:10 VBG pH 7.46 (7.36-7.41) H 11/08/21 20:40 VBG pCO2 35 mmHg (38-50) L 11/08/21 20:40 VBG pO2 25 mmHg 11/08/21 20:40 VBG HCO3 24 mmol/L 11/08/21 20:40 VBG O2 Saturation < 60.0 % 11/08/21 20:40 VBG Base Excess 0.7 mEq/L 11/08/21 20:40 Barometric Pressure 731.5 mm/Hg 11/08/21 20:40 Sodium 132 mmol/L (136-145) L 11/09/21 12:45 Potassium 3.4 mmol/L (3.5-5.1) L D 11/09/21 12:45 Chloride 101 mmol/L (98-107) 11/09/21 12:45 Carbon Dioxide 24 mmol/L (21-32) 11/09/21 12:45 Anion Gap 7 (3-11) 11/09/21 12:45 BUN 6 mg/dl (6-23) 11/09/21 12:45 Creatinine 0.68 mg/dl (0.6-1.2) 11/09/21 12:45 Est Cr Clr Drug Dosing 55.1 ml/min 11/09/21 12:45 Est GFR ( Amer) 99.2 ml/min 11/09/21 12:45 Est GFR (Non-Af Amer) 85.6 ml/min 11/09/21 12:45 BUN/Creatinine Ratio 8.8 (10-20) L 11/09/21 12:45 Glucose 107 mg/dl (70-99(Fasting)) H 11/09/21 12:45 Lactate 1.9 mmol/L (0.4-2.0) 11/08/21 23:37 Calcium 8.6 mg/dl (8.5-10.1) 11/09/21 12:45 Magnesium 2.2 mg/dl (1.7-2.4) 11/09/21 08:02 Total Bilirubin 1.7 mg/dl (0.2-1.0) H D 11/09/21 08:02 Direct Bilirubin 0.8 mg/dl (0-0.2) H 11/09/21 08:02 AST 267 U/L (13-39) H 11/09/21 08:02 ALT 351 U/L (7-52) H 11/09/21 08:02 Alkaline Phosphatase 60 U/L (34-104) 11/09/21 08:02 Total Creatine Kinase 86 U/L (26-192) 11/08/21 19:30 Total Protein 5.4 gm/dl (6.0-8.3) L 11/09/21 08:02 Albumin 3.4 gm/dl (3.4-5.0) 11/09/21 08:02 Globulin 2.4 gm/dl (2.5-4.0) L 11/08/21 19:30 Albumin/Globulin Ratio 1.6 (0.9-2) 11/08/21 19:30 Lipase 28 U/L (11-82) 11/08/21 19:30 Urine Color Dark Yellow 11/09/21 14:05 Urine Appearance Clear (Clear) 11/09/21 14:05 Urine pH 5.0 (4.5-7.5) 11/09/21 14:05 Ur Specific [place] 1.036 (1.000-1.030) H 11/09/21 14:05 Urine Protein Negative (Negative) 11/09/21 14:05 Urine Glucose (UA) Negative (Negative) 11/09/21 14:05 Urine Ketones 1+ (Negative) H 11/09/21 14:05 Urine Blood Negative (Negative) 11/09/21 14:05 Urine Nitrite Negative (Negative) 11/09/21 14:05 Urine Bilirubin 1+ (Negative) H 11/09/21 14:05 Urine Urobilinogen Negative (Negative) 11/09/21 14:05 Ur Leukocyte Esterase Trace (Negative) H 11/09/21 14:05 Salicylates 6.2 mg/dl (3.0-30) 11/08/21 19:30 Acetaminophen 106 ug/ml (10-30) H 11/09/21 08:02 Ethyl Alcohol mg/dL < 10.0 mg/dl (<10.0) 11/08/21 19:30 Hepatitis C Ab Screen Neg (Neg) 11/09/21 08:02 SARS-CoV-2, RNA, NAAT NEGATIVE (NEGATIVE) 11/08/[address] 11/08/21 18:41 CT head/brain wo con CLINICAL HISTORY: Patient confusion. Reported accidental overdose COMPARISON STUDY: 02/28/2014 CT DOSE: 537.48 mGy.cm TECHNIQUE: Standard CT of the Brain was performed without IV contrast. A dose lowering technique was utilized adhering to the principles of ALARA. FINDINGS: Extraaxial space: There is no evidence for subdural hematoma. There are no extra-axial fluid collections. Ventricles and cisterns: The ventricles are normal in size and configuration. There is no evidence for midline shift or mass effect. Parenchyma: There is no subarachnoid or intraparenchymal hemorrhage. There is no evidence for an acute infarct or cerebral edema. There is mild cerebral cortical atrophy present. There is homogeneous attenuation of the brain parenchyma. There are no gross mass lesions. Osseous structures: There is no evidence for an acute fracture. The visualized paranasal sinuses are clear. The mastoid air cells are clear bilaterally. Soft tissues: There is no evidence for focal soft tissue swelling. IMPRESSION: 1. No acute intracerebral pathology. 2. Mild cerebral cortical atrophy. ACT 112: Negative or not required by law. Electronically signed by: Elvis Melendrez M.D. 11/08/2021 7:09 PM
[2021-11-09 08:53] LABS: Albumin Level 3.4 gm/dl (3.4-5.0); BUN Creatinine Ratio 10.3 (10-20); Bilirubin Direct 0.8 mg/dl (0-0.2); Bilirubin,Total 1.7 mg/dl (0.2-1.0); Calcium 7.8 mg/dl (8.5-10.1); Creatinine Clr Calc Pharmacy 55.1 ml/min; Est GFR (African American) 99.2 ml/min; Est GFR (Non-African American) 85.6 ml/min; Magnesium 2.2 mg/dl (1.7-2.4); Potassium 2.5 mmol/L (3.5-5.1); Total Protein 5.4 gm/dl (6.0-8.3)
[2021-11-09] MEDS: POTASSIUM CHLORIDE / WTR 10 MEQ/100 ML PLCT IV SCH ×4 (09:31→13:31)
[2021-11-09] MEDS ORDERED: THIAMINE HCL 100 MG in SYRINGE 9 ML IV STA (10:02)
[2021-11-09] MEDS: NSS + 20MEQ KCL 20 MEQ/1,000 ML BAG IV SCH ×2 (11:06→22:09)
[2021-11-09 13:12] LABS: BUN Creatinine Ratio 8.8 (10-20); Calcium 8.6 mg/dl (8.5-10.1); Creatinine Clr Calc Pharmacy 55.1 ml/min; Est GFR (African American) 99.2 ml/min; Est GFR (Non-African American) 85.6 ml/min; Potassium 3.4 mmol/L (3.5-5.1)
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
[2021-11-09 14:38] LABS: Appearance Urine Clear (Clear); Bacteria Urine Automated Negative (Negative); Blood Urine Negative (Negative); Color Urine Dark Yellow; Epithelial Cell Urine Auto >30 /lpf (0-5); Glucose Urine UA Negative (Negative); Ketones Urine 1+ (Negative); Leukocyte Esterase Urine Trace (Negative); Nitrite Urine Negative (Negative); Protein Urine Negative (Negative); RBC Urine Automated 0-4 /hpf (0-4); Specific Gravity Urine 1.036 (1.000-1.030); Urobilinogen Urine Negative (Negative)
[2021-11-09 14:53] LABS: Bilirubin Urine 1+ (Negative)
[2021-11-09 15:30] LABS: Renal Epithelial Cells Urine 0-5 /lpf (0-5)
[2021-11-09 16:07] LABS: INR 2.4 (0.9-1.1); Prothrombin Time 24.6 Seconds (9.0-12.0)
[2021-11-09 17:01] LABS: Albumin Level 3.1 gm/dl (3.4-5.0); BUN Creatinine Ratio 8.7 (10-20); Bilirubin Direct 0.8 mg/dl (0-0.2); Bilirubin,Total 1.9 mg/dl (0.2-1.0); Calcium 7.8 mg/dl (8.5-10.1); Creatinine Clr Calc Pharmacy 54.3 ml/min; Est GFR (African American) 98.7 ml/min; Est GFR (Non-African American) 85.2 ml/min; Potassium 3.3 mmol/L (3.5-5.1); Total Protein 5.3 gm/dl (6.0-8.3)
[2021-11-09 17:20] LABS: Amphetamines+Metham, Urine Neg (Neg); Barbiturates, Urine Neg (Neg); Benzodiazepine, Urine Neg (Neg); Cocaine, Urine Neg (Neg); MDMA (Ecstacy), Urine Neg (Neg); Methadone, Urine Neg (Neg); Opiate, Urine Neg (Neg); Phencyclidine, Urine Neg (Neg)
[2021-11-09] MEDS ORDERED: ACETYLCYSTEINE IV ONE ×3 (17:20→22:20)
[2021-11-09] MEDS ORDERED: AcetylCYSTEINE IV 21 HR REGIMEN (>40KG) IV STA (17:20)
[2021-11-09] MEDS ORDERED: DEXTROSE 5% IV ONE ×3 (17:20→22:20)
[2021-11-09 20:39] LABS: BUN Creatinine Ratio 8.8 (10-20); Calcium 7.9 mg/dl (8.5-10.1); Creatinine Clr Calc Pharmacy 55.1 ml/min; Est GFR (African American) 99.2 ml/min; Est GFR (Non-African American) 85.6 ml/min; Potassium 3.5 mmol/L (3.5-5.1)
[2021-11-09] MEDS: MELATONIN 3 MG TAB PO SCH (22:09)
--- NOTE | 2021-11-09 22:23 | Electrocardiogram Report ---
Test Reason : Blood Pressure : / mmHG Vent. Rate : 077 BPM Atrial Rate : 077 BPM P-R Int : 146 ms QRS Dur : 068 ms QT Int : 446 ms P-R-T Axes : 039 004 053 degrees QTc Int : 504 ms Poor data quality, interpretation may be adversely affected Normal sinus rhythm Prolonged QT No previous ECGs available Confirmed by Miki Caceres ([id number]) on 11/09/2021 10:23:09 PM Referred By: REFERRED SELF Confirmed By:Miki Caceres
--- NOTE | 2021-11-09 22:28 | Electrocardiogram Report ---
Test Reason : Blood Pressure : / mmHG Vent. Rate : 077 BPM Atrial Rate : 077 BPM P-R Int : 162 ms QRS Dur : 080 ms QT Int : 482 ms P-R-T Axes : 054 032 064 degrees QTc Int : 546 ms Poor data quality, interpretation may be adversely affected Normal sinus rhythm Nonspecific T wave abnormality Prolonged QT Abnormal ECG When compared with ECG of 08-NOV-2021 19:21, No significant change was found Confirmed by Miki Caceres ([id number]) on 11/09/2021 10:28:18 PM Referred By: REFERRED SELF Confirmed By:Miki Caceres
--- NOTE | 2021-11-09 22:39 | Electrocardiogram Report ---
Test Reason : Blood Pressure : / mmHG Vent. Rate : 094 BPM Atrial Rate : 094 BPM P-R Int : 152 ms QRS Dur : 082 ms QT Int : 454 ms P-R-T Axes : 060 015 054 degrees QTc Int : 567 ms Normal sinus rhythm Prolonged QT Abnormal ECG When compared with ECG of 08-NOV-2021 23:22, QT has lengthened Confirmed by Miki Caceres ([id number]) on 11/09/2021 10:38:39 PM Referred By: REFERRED SELF Confirmed By:Miki Caceres
[2021-11-10 00:50] LABS: BUN Creatinine Ratio 11.3 (10-20); Calcium 8.4 mg/dl (8.5-10.1); Creatinine Clr Calc Pharmacy 60.4 ml/min; Est GFR (African American) 102.2 ml/min; Est GFR (Non-African American) 88.2 ml/min; Potassium 3.2 mmol/L (3.5-5.1)
[2021-11-10] MEDS ORDERED: POTASSIUM CHLORIDE CRTAB 20 MEQ TABCR PO STA (02:06)
[2021-11-10 04:35] LABS: Hematocrit (blood only) 38.9 % (37-47); Hemoglobin 13.1 g/dL (12.0-16.0); Mean Corpuscular Hemoglobin 31.3 pg (25-34); Mean Corpuscular Hgb Conc 33.7 g/dL (32-36); Mean Corpuscular Volume 93.1 fL (80-100); Mean Platelet Volume 10.5 fL (7.4-10.4); Platelet Count 150 K/uL (130-400); RDW Coefficient of Variation 12.6 % (11.5-14.5); RDW Standard Deviation 43.1 fL (36.4-46.3); Red Blood Count 4.18 M/uL (4.2-5.4); White Blood Count 6.18 K/uL (4.8-10.8)
[2021-11-10 04:54] LABS: INR 3.6 (0.9-1.1); Partial Thromboplastin Ratio 1.3; Partial Thromboplastin Time 34.7 Seconds (21.0-31.0); Prothrombin Time 35.8 Seconds (9.0-12.0)
[2021-11-10 05:09] LABS: Anion Gap 4 (3-11); BUN Creatinine Ratio 10.8 (10-20); Blood Urea Nitrogen 7 mg/dl (6-23); Calcium 8.5 mg/dl (8.5-10.1); Carbon Dioxide 25 mmol/L (21-32); Chloride 106 mmol/L (98-107); Creatinine Clr Calc Pharmacy 57.6 ml/min; Est GFR (African American) 100.7 ml/min; Est GFR (Non-African American) 86.8 ml/min; Glucose 115 mg/dl (70-99(Fasting)); Potassium 3.5 mmol/L (3.5-5.1); Sodium 135 mmol/L (136-145)
[2021-11-10 05:26] LABS: Albumin Level 2.9 gm/dl (3.4-5.0); Alkaline Phosphatase 68 U/L (34-104); Bilirubin Direct 0.6 mg/dl (0-0.2); Bilirubin,Total 1.4 mg/dl (0.2-1.0); Total Protein 4.7 gm/dl (6.0-8.3)
[2021-11-10 05:27] LABS: Aspartate Aminotransferase 5674 U/L (13-39)
[2021-11-10 06:35] LABS: Alanine Aminotransferase > 2500 U/L (7-52)
[2021-11-10 07:00] LABS: Base Excess ABG -0.7 mEq/L (-9-1.8); HCO3 ABG 22 mmol/L (19-24); PCO2 ABG 30 mmHg (35-46); PO2 ABG 79 mmHg (80-95); pH ABG 7.48 (7.35-7.45)
[2021-11-10 07:01] LABS: Allen Test Pos (Pos)
[2021-11-10 08:30] LABS: BUN Creatinine Ratio 11.7 (10-20); Calcium 7.6 mg/dl (8.5-10.1); Est GFR (African American) 103.3 ml/min; Est GFR (Non-African American) 89.2 ml/min; Potassium 3.7 mmol/L (3.5-5.1)
--- NOTE | 2021-11-10 09:54 | Medical Student Progress Note ---
Date of Service November 10, 2021 Assessment & Plan (1) Liver failure, acute: Plan: Patient is a 75-year-old female with a history of hyperlipidemia, hypertension, DVT, and depression/anxiety who presented to the ED on 11/08 via ambulance from her home after ingesting an unknown quantity of Tami[place], Acetaminophen, and Aleve. She presented with encephalopathy and was admitted for workup of encephalopathy and presumed acetaminophen overdose. Acute liver failure - 2/2 acetaminophen overdose - r/o other etiologies (R sided ventricular dysfunction, venous congestion, ischemic liver injury, autoimmune) - echo 11/10: significant for: hyperdynamic LV, EF > 70%, borderline concentric LV hypertrophy, Grade 1 diastolic pattern (abn relaxation pattern), mild to moderately dilated RV, no significant valvular disease (overall limited exam). RV dysfx less likely given these findings. - portal vein U/S: limited exam (pt unable to hold breath), hepatic and portal veins patent, hepatopedal flow w/in portal vein, peripherally calcified lesion in R hepatic lobe (3.0 x 2.9 x 2.9 cm). Several hepatic cysts up to 2.5 cm each. Can r/o ischemic liver injury and venous congestion w/ these findings - per [facility] hepatology; due to pt age, dementia, DNR/DNI status, would not be a candidate for liver transplant - coags: INR downtrending from 3.6 to 3.2 - worsening transaminitis - Autoimmune panel, Hep B, Hep C antibody pending - mild scleral icterus on exam, monitor for jaundice and other liver sxs - start vitamin K 10mg IV daily for 72 hours - continue trending PT/INR, liver function tests, acetaminophen levels - per poison control rec: maintain K+ > 4, Mag > 2 due to tami seltzer overdose Encephalopathy - toxic vs metabolic etiology - complicated by dementia at baseline - ABG - pH 7.48/30/79/22 - Na 135--> 134 - U/A WNL - Drug screen Negative - start miralax and rifaximin, ammonia of 192 Tylenol overdose - ingestion of Tylenol, Aspirin, Tami[place] (unknown quantity) - Seemingly unintentional, patient has hx of depression/anxiety, but also reports declining cognition since then, seems as though there is some u nderlying dementia. - Poison control contacted, extended to 72 hour NAC protocol - acetaminophen level trending down - IVF with LRs at 80cc/hr - Trend CBC, BMP, LFTs, PT/INR as well as salicylate and acetaminophen levels for AM labs Prolonged QT syndrome - patient was tachycardic to 110s overnight, in sinus rhythm - EKG from 11/10 - sinus tachycardia low voltage QRS diffuse nonspecific T wave abnormality QT: 340 ms QTc: 440 ms - continue cardiac monitoring, monitoring for cardiac sxs Malnutrition - 2 year history of weight loss and lack of appetite - pt has lost approx 60 lbs since November 2019 - daily standing weights to monitor weight gain - Draw TSH, Free T3/Free T4 with AM labs - consider thick fluids diet - supplement diet with boost, TID Depression with anxiety - psych consulted, appreciate recs - plan to start Mirtazapine when sodium is stable and patient is stable Hypokalemia - most recently trending up (2.5 --> 3.4) - continue trending - continue repleting as needed Hyperglycemia - trending down 129--> 108 --> 107 - consider A1C (last one was 03/2020; 5.7) Hyperlipidemia - pt previously on atorvastatin 10 mg, pt has not taken since Apr 2020 - consider lipid panel to evaluate if pt at risk for CAD - consider discussion with patient about restarting rx if indicated cognitive and behavioral changes - 2 year h/o declining short term memory and acute confusion episodes, auditory hallucinations (talking to people who are not there), paranoia (opening doors at night looking for things)and weeks of stuporous episodes (staying in bed for weeks at a time) per pt's - pt herself unsure of how her memory is doing - consider starting medication for memory and testing for cognitive ability in outpatient setting, when patient is stable goals of care - patient unable to complete ADL's independently at this time, complicated by underlying dementia, delirium, and malnourishment - consider goals of care in outpatient setting FEN/GI: regular, thick liquid diet Code Status: DNR/DNI DVT ppx: contraindicated with elevated INR Dispo: Med/Tele, poor prognosis (2) Encephalopathy: (3) Tylenol overdose: (4) Prolonged QT interval: (5) Malnutrition: (6) Depression with anxiety: (7) Hypokalemia: (8) Hyperglycemia: (9) Hyperlipidemia: (10) Cognitive and behavioral changes: (11) Goals of care, counseling/discussion: Admission and Anticipated Discharge Date Admission Date: November 08, 2021 Supervising Attestation Medical Student Supervision Note: I was personally present during medical student patient encounter and independently interviewed and examined the patient and verified the faust history and physical, reviewed labs and image studies, discussed the case with Dianne Zelaya and agree with the findings and care plan. Toxic encephalopathy in setting of Polypharm OD Dementia causing Polypharm OD Acute hepatitis in setting of tylenol overdose - Worsening transaminases - consulted GI rule out other cause. tertiary care contacted - not transplant candidate. Vitamin K for elevated INR Rifaxin for elevated ammonia treat tylenol overdose - NAC protocol Depression/Anxiety Start mirtazepine once liver function stablizes. Weight loss with early dementia Encourage PO intake. Subjective Patient is a 75-year-old female with a history of hyperlipidemia, hypertension, DVT, and depression/anxiety who presented to the ED on 11/08 via ambulance from her home after ingesting an unknown quantity of Tami[place], Acetaminophen, and Aleve. She presented with encephalopathy and was admitted for workup of encephalopathy and presumed acetaminophen overdose. Overnight, she was tachycardic to the 110s, in sinus rhythm. Early this morning, poison control was contacted and gave recommendations for pt care including drawing lactic acid, ammonia, and blood gas levels, maintaining potassium > 4 and Magnesium > 2 due to Tami seltzer overdose, and extending NAC protocol to 72 hours. An additional PT/INR, liver function test, and acetaminophen level were also recommended to be drawn at 1330 today. [facility] GI was consulted and recommended speaking with hepatology at [facility] or [facility]. [facility] stated that due to pt's age and dementia that she would not be transplant eligible but can be managed here and to r/o other etiologies for her acute liver failure. [facility] recommended obtaining an U/S of liver to r/o ischemia, echo to r/o R sided heart dysfunction, starting Miralax, Rifaximin, and subcutaneous vitamin K for 72 hours. This morning, she was resting comfortably in bed with her eyes closed, but answering questions and following commands. She slept well over night. She has not eaten a full meal since arriving to the hospital, only consuming snacks and liquids, though she says she is not hungry. She has not passed a bowel movement and has not passed gas. She has urinated. Pt denies any h/o liver concerns in the past and shares her brother may have had cirrhosis from drinking alcohol. Review of Systems Constitutional: + fatigue and + weight loss; no fever, no chills and no body aches Eyes: no changes in vision Ear, Nose, Mouth, Throat: occasional tickle in throat Respiratory: denies SOB Cardiovascular: Additional Comments: denies chest pain, palpitations Gastrointestinal: denies abdominal pain or discomfort; has not had a BM or passed gas since arrival to ED Genitourinary: denies dysuria or frequency or difficulty urinating Musculoskeletal: denies body aches or generalized pain Neurologic: denies headache Psychiatric: denies sleep issues overnight Physical Exam Constitutional: + thin, + frail appearing and + malnourished Eyes: eyes slightly icteric b/l ENMT: external ear and nose normal, oropharynx normal Neck: trachea midline, no thyromegaly Respiratory: normal respiratory effort, lungs clear to auscultation does not use accessory muscles Cardiovascular: Rate/Rhythm: regular rhythm and + tachycardic Vessels: no JVD, no carotid bruit and no abdominal aortic bruit Extremities: normal capillary refill; no calf tenderness, no pedal edema and no edema Gastrointestinal (Abdomen): Inspection/Auscultation: + hypoactive bowel sounds Percussion/Palpation: abdomen soft; abdomen nontender and no guarding Skin: no rashes, warm and dry Neurologic: PERRL, EOMI, accommodation nl, no face palsy, no dysarthria Psychiatric: Orientation: alert, oriented to person and oriented to place; + not oriented to time Lymphatic: no cervical or axillary lymphadenopathy Results & Data ([facility]) Vital Signs (Past 12 Hours) Vital Signs Temp Pulse Pulse Resp BP Pulse Ox Pulse Ox 11/10/21 05:57 36.8 C 111 H 16 108/70 95 11/09/21 23:14 95 11/09/21 22:50 36.8 C 99 H 20 107/71 96 11/09/21 22:30 96 H Laboratory Results Laboratory Results WBC 6.18 K/uL (4.8-10.8) 11/10/21 04:12 RBC 4.18 M/uL (4.2-5.4) L 11/10/21 04:12 Hgb 13.1 g/dL (12.0-16.0) 11/10/21 04:12 Hct 38.9 % (37-47) 11/10/21 04:12 MCV 93.1 fL (80-100) 11/10/21 04:12 MCH 31.3 pg (25-34) 11/10/21 04:12 MCHC 33.7 g/dL (32-36) 11/10/21 04:12 RDW Std Deviation 43.1 fL (36.4-46.3) 11/10/21 04:12 RDW Coeff of Jac 12.6 % (11.5-14.5) 11/10/21 04:12 Plt Count 150 K/uL (130-400) 11/10/21 04:12 MPV 10.5 fL (7.4-10.4) H 11/10/21 04:12 Immature Gran % (Auto) 0.0 % 11/09/21 08:02 Neut % (Auto) 79.9 % 11/09/21 08:02 Lymph % (Auto) 15.0 % 11/09/21 08:02 [place] % (Auto) 4.7 % 11/09/21 08:02 Eos % (Auto) 0.0 % 11/09/21 08:02 Baso % (Auto) 0.4 % 11/09/21 08:02 Neut # (Auto) 4.38 K/uL (1.4-6.5) 11/09/21 08:02 Lymph # (Auto) 0.82 K/uL (1.2-3.4) L 11/09/21 08:02 [place] # (Auto) 0.26 K/uL (0.11-0.59) 11/09/21 08:02 Eos # (Auto) 0.00 K/uL (0-0.5) 11/09/21 08:02 Baso # (Auto) 0.02 K/uL (0-0.2) 11/09/21 08:02 Immature Gran # (Auto) 0.00 K/uL (0.00-0.02) 11/09/21 08:02 PT 35.8 Seconds (9.0-12.0) H 11/10/21 04:12 INR 3.6 (0.9-1.1) H 11/10/21 04:12 APTT 34.7 Seconds (21.0-31.0) H 11/10/21 04:12 PTT Ratio 1.3 11/10/21 04:12 ABG pH 7.48 (7.35-7.45) H 11/10/21 06:40 ABG pCO2 30 mmHg (35-46) L 11/10/21 06:40 ABG pO2 79 mmHg (80-95) L 11/10/21 06:40 ABG HCO3 22 mmol/L (19-24) 11/10/21 06:40 ABG O2 Saturation 96.0 % (90-95) H 11/10/21 06:40 ABG Base Excess -0.7 mEq/L (-9-1.8) 11/10/21 06:40 Pepe Test Pos (Pos) 11/10/21 06:40 VBG pH 7.46 (7.36-7.41) H 11/08/21 20:40 VBG pCO2 35 mmHg (38-50) L 11/08/21 20:40 VBG pO2 25 mmHg 11/08/21 20:40 VBG HCO3 24 mmol/L 11/08/21 20:40 VBG O2 Saturation < 60.0 % 11/08/21 20:40 VBG Base Excess 0.7 mEq/L 11/08/21 20:40 Barometric Pressure 733.7 mm/Hg 11/10/21 06:40 Oxygen Given ROOM AIR 11/10/21 06:40 Sodium 134 mmol/L (136-145) L 11/10/21 07:46 Potassium 3.7 mmol/L (3.5-5.1) 11/10/21 07:46 Chloride 107 mmol/L (98-107) 11/10/21 07:46 Carbon Dioxide 22 mmol/L (21-32) 11/10/21 07:46 Anion Gap 5 (3-11) 11/10/21 07:46 BUN 7 mg/dl (6-23) 11/10/21 07:46 Creatinine 0.60 mg/dl (0.6-1.2) 11/10/21 07:46 Est Cr Clr Drug Dosing 72.0 ml/min 11/10/21 07:46 Est GFR ( Amer) 103.3 ml/min 11/10/21 07:46 Est GFR (Non-Af Amer) 89.2 ml/min 11/10/21 07:46 BUN/Creatinine Ratio 11.7 (10-20) 11/10/21 07:46 Glucose 114 mg/dl (70-99(Fasting)) H 11/10/21 07:46 Lactate 1.9 mmol/L (0.4-2.0) 11/10/21 06:40 Calcium 7.6 mg/dl (8.5-10.1) L 11/10/21 07:46 Magnesium 1.8 mg/dl (1.7-2.4) 11/10/21 06:33 Total Bilirubin 1.4 mg/dl (0.2-1.0) H 11/10/21 04:12 Direct Bilirubin 0.6 mg/dl (0-0.2) H 11/10/21 04:12 AST 5674 U/L (13-39) H 11/10/21 04:12 ALT > 2500 U/L (7-52) H 11/10/21 04:12 Alkaline Phosphatase 68 U/L (34-104) 11/10/21 04:12 Ammonia 192.0 umol/L (18-72) H 11/10/21 06:41 Total Creatine Kinase 86 U/L (26-192) 11/08/21 19:30 Total Protein 4.7 gm/dl (6.0-8.3) L 11/10/21 04:12 Albumin 2.9 gm/dl (3.4-5.0) L 11/10/21 04:12 Globulin 2.4 gm/dl (2.5-4.0) L 11/08/21 19:30 Albumin/Globulin Ratio 1.6 (0.9-2) 11/08/21 19:30 Lipase 28 U/L (11-82) 11/08/21 19:30 Urine Color Dark Yellow 11/09/21 14:05 Urine Appearance Clear (Clear) 11/09/21 14:05 Urine pH 5.0 (4.5-7.5) 11/09/21 14:05 Ur Specific [place] 1.036 (1.000-1.030) H 11/09/21 14:05 Urine Protein Negative (Negative) 11/09/21 14:05 Urine Glucose (UA) Negative (Negative) 11/09/21 14:05 Urine Ketones 1+ (Negative) H 11/09/21 14:05 Urine Blood Negative (Negative) 11/09/21 14:05 Urine Nitrite Negative (Negative) 11/09/21 14:05 Urine Bilirubin 1+ (Negative) H 11/09/21 14:05 Urine Urobilinogen Negative (Negative) 11/09/21 14:05 Ur Leukocyte Esterase Trace (Negative) H 11/09/21 14:05 Urine WBC (Auto) 5-10 /hpf (0-5) H 11/09/21 14:05 Urine RBC (Auto) 0-4 /hpf (0-4) 11/09/21 14:05 U Hyaline Cast (Auto) 1-5 /lpf (0-5) 11/09/21 14:05 U Epithel Cells (Auto) >30 /lpf (0-5) H 11/09/21 14:05 Urine Bacteria (Auto) Negative (Negative) 11/09/21 14:05 Ur Renal Epithelial Cell 0-5 /lpf (0-5) 11/09/21 14:05 Urine Yeast Not Reportable 11/09/21 14:05 Salicylates 6.2 mg/dl (3.0-30) 11/08/21 19:30 Urine Opiates Screen Neg (Neg) 11/09/21 14:05 Ur Methadone, Qual Neg (Neg) 11/09/21 14:05 Acetaminophen 28 ug/ml (10-30) 11/10/21 04:12 Urine Barbiturates Neg (Neg) 11/09/21 14:05 Ur Phencyclidine (PCP) Neg (Neg) 11/09/21 14:05 U Amphetamin/Meth Scrn Neg (Neg) 11/09/21 14:05 MDMA (Ecstasy) Screen Neg (Neg) 11/09/21 14:05 U Benzodiazepines Scrn Neg (Neg) 11/09/21 14:05 Ur Cocaine Metabolite Neg (Neg) 11/09/21 14:05 U Marijuana (THC) Screen Neg (Neg) 11/09/21 14:05 Ethyl Alcohol mg/dL < 10.0 mg/dl (<10.0) 11/08/21 19:30 Hepatitis C Ab Screen Neg (Neg) 11/09/21 08:02 SARS-CoV-2, RNA, NAAT NEGATIVE (NEGATIVE) 11/08/[address] 11/08/21 18:41 CT head/brain wo con CLINICAL HISTORY: Patient confusion. Reported accidental overdose COMPARISON STUDY: 02/28/2014 CT DOSE: 537.48 mGy.cm TECHNIQUE: Standard CT of the Brain was performed without IV contrast. A dose lowering technique was utilized adhering to the principles of ALARA. FINDINGS: Extraaxial space: There is no evidence for subdural hematoma. There are no extra-axial fluid collections. Ventricles and cisterns: The ventricles are normal in size and configuration. There is no evidence for midline shift or mass effect. Parenchyma: There is no subarachnoid or intraparenchymal hemorrhage. There is no evidence for an acute infarct or cerebral edema. There is mild cerebral cortical atrophy present. There is homogeneous attenuation of the brain parenchyma. There are no gross mass lesions. Osseous structures: There is no evidence for an acute fracture. The visualized paranasal sinuses are clear. The mastoid air cells are clear bilaterally. Soft tissues: There is no evidence for focal soft tissue swelling. IMPRESSION: 1. No acute intracerebral pathology. 2. Mild cerebral cortical atrophy. ACT 112: Negative or not required by law. Electronically signed by: Elvis Melendrez M.D. 11/08/2021 7:09 PM
--- NOTE | 2021-11-10 10:28 | Gastrointestinal Consultation ---
Date of Consultation November 10, 2021 Assessment & Plan (1) Liver failure, acute: -Advised transfer to a tertiary center with liver transplant capabilities, however [facility] hepatology refused patient due to DNR/DNI status. Discussed with primary team who will plan to address goals of care with patient and family. -Doppler US Liver to assess for ischemic injury -AMA, SHANIQUE, ASMA, viral hepatitis studies to exclude overlapping issues -Follow INR and AST/ALT q 12 hours -Vitamin K as recommended by hepatology -Miralax 17 gm BID & Xifaxan 550 mg BID as per hepatology due to elevated ammonia and concerns for HE -Continue to monitor; prognosis is guarded (2) Tylenol overdose: Supervising Physician Co-Signing Physician Notes I personally evaluated the patient and agree with the findings as documented by Felisa Godoy, JUANITA Exam: Constitutional: WD/WN, vitals as above General: EOM intact bilaterally Neck: normal visual inspection Respiratory: normal respiratory effort, lungs clear to auscultation Cardiovascular: RRR, no murmur, no edema Gastrointestinal: abdomennormal to inspection, nondistended, soft, nontender, no hepatosplenomegaly Musculoskeletal: no cyanosis, head normal to inspection Skin: no rashes, warm and dry Neurologic: moves all extremities Psychiatric: A and O x3, euthymic affect History of Present Illness Reason for Consultation: Liver failure 2/2 Tylenol overdose Attending Physician: Linda Sotomayor MD History of Present Illness Patient is a 75-year-old female with a history of hyperlipidemia, hypertension, depression/anxiety who has been admitted to [facility] due to acute Tylenol overdose. It was reported by EMS upon presentation to the hospital that the patient had reportedly taken too much Tylenol. (Reportedly at least #12-650 mg tablets as well as some tami seltzer). On admission, she was found to have a Tylenol level of 225. K 3.1, Mg 1.6, INR 1.3, Lactic 2.7, ALT 99, AST 69. ABG pH 7.48. She was given NAC protocol, fluids and electrolyte replacement. Throughout the stay, labs have worsened quickly. At present, her labs are as follows: INR 3.6, D bili 0.6, T Bili 1.4, AST 5,674, ALT >2500. Ammonia 192. Patient denies any acute symptoms at present. No visible jaundice. She denies history of liver issues. She reports a brother with alcoholic cirrhosis. She is somewhat confused intermittently, but answers questions appropriately. Allergies Allergy/AdvReac Type Severity Reaction Status Date / Time Fish Containing Products Allergy Intermediate FACIAL Verified 11/08/21 19:40 SWELLING - ANCHOVIES naproxen Allergy Intermediate HIVES AND Verified 11/08/21 19:40 FACIAL SWELLING estrogens, conjugated AdvReac Unknown DVT Verified 11/08/21 19:40 Home Medications Medication Instructions Recorded Confirmed Type acetaminophen 325 mg capsule 650 mg PO QID PRN 11/08/21 11/08/21 History (Tylenol) aspirin-sod bicarb-citric acid 325 2 tab PO UD PRN 11/08/21 11/08/21 History mg-1,916 mg-1,000 mg efferves tab (Tami-[place] Original) ibuprofen 200 mg tablet (Advil) 400 mg PO Q6H PRN 11/08/21 11/08/21 History Patient History Medical History (Updated 11/10/21 @ 15:26 by Dianne Zelaya) Facial laceration History of DVT in adulthood Mild concussion Vertigo Surgical History No significant past surgical history Family History Father Heart failure Brother Aortic aneurysm Denies family history of Ovarian cancer Prostate cancer Myocardial infarction Breast cancer Colorectal cancer Social History Smoking Status: Never smoker Second Hand Exposure: No; Hx Alcohol Use: No Hx Substance Use: No Preferred Language: French Communication Ability: Impaired Visual Impairment: No Limitations Hearing Ability: Normal Wood Panel Inspector Required: No Beliefs That Will Affect Care: None marital status: Current Living Situation: Spouse Current Living Situation Comment: with current occupational status: retired Other Information That Helps Us Care for You: No Feels Safe at Home: Yes Childhood Exposure to Second-Hand Smoke: No Diet Comment: no specifis diet Dental Care, Regularly: Yes Physical Activity Frequency: Daily Physical Activity Frequency Comment: walking Seatbelt Use: always Do you think of yourself as: straight/heterosexual Assistive Devices: None Review of Systems Constitutional: no fever and no chills Respiratory: no cough and no dyspnea Cardiovascular: no chest pain Gastrointestinal: no abdominal pain Musculoskeletal: no problem reported Psychiatric: no problem reported Physical Exam Constitutional: well developed Respiratory: normal respiratory effort Cardiovascular: Rate/Rhythm: regular rate Gastrointestinal (Abdomen): Percussion/Palpation: abdomen soft and + hepatomegaly; abdomen nontender Musculoskeletal: Head/Neck/Chest: normocephalic Skin: no jaundice Psychiatric: Orientation: alert and oriented x 3 Results & Data ([facility]) Vital Signs (Past 12 Hours) Vital Signs Temp Pulse Pulse Resp BP Pulse Ox Pulse Ox 11/10/21 05:57 36.8 C 111 H 16 108/70 95 11/09/21 23:14 95 11/09/21 22:50 36.8 C 99 H 20 107/71 96 11/09/21 22:30 96 H PG Care Time/CCT Total # of Minutes Spent Total Time Spent with Patient: Total time spent is greater than 50% in coordination of care (as documented) at patient's floor/unit and/or counseling patient: Coding Level of Care Code 36621 Initial Inpt Care Lvl 3 Diagnoses Liver failure, acute K72.00 Tylenol overdose T39.1X1A
[2021-11-10] MEDS: NSS + 20MEQ KCL 20 MEQ/1,000 ML BAG IV SCH (12:15)
--- NOTE | 2021-11-10 13:02 | XCELERA ---
[id number]
--- NOTE | 2021-11-10 14:08 | Ultrasound Report ---
US duplex portal hepatic veins HISTORY: 75 years-old Female Liver failure COMPARISON: None TECHNIQUE: Multiple real-time sonographic images of the hepatic vasculature were obtained assessing g rayscale appearance, color and spectral flow FINDINGS: Limited exam secondary to patient inability to breath-hold. The hepatic and portal veins appear paten t. Hepatopedal flow within the portal vein. Peripherally calcified lesion within the right hepatic lo be measures 3.0 x 2.9 x 2.9 cm. Several hepatic cysts measure up to 2.5 cm. IMPRESSION: Limited exam with patent hepatic vasculature. ACT 112: Negative or not required by law. The above report was generated using voice recognition software. It may contain grammatical, syntax o r spelling errors. Electronically signed by: Dimitri Del Valle M.D. 11/10/2021 2:07 PM
[2021-11-10 14:34] LABS: INR 3.2 (0.9-1.1); Prothrombin Time 31.7 Seconds (9.0-12.0)
[2021-11-10] MEDS ORDERED: DEXTROSE 5% IV ONE ×2 (14:47→15:49)
[2021-11-10] MEDS ORDERED: AcetylCYSTEINE IV 21 HR REGIMEN (>40KG) IV STA (14:47)
[2021-11-10] MEDS ORDERED: ACETYLCYSTEINE IV ONE ×2 (14:47→15:49)
--- NOTE | 2021-11-10 15:11 | Electrocardiogram Report ---
Test Reason : Blood Pressure : / mmHG Vent. Rate : 092 BPM Atrial Rate : 092 BPM P-R Int : 150 ms QRS Dur : 080 ms QT Int : 416 ms P-R-T Axes : 068 038 076 degrees QTc Int : 514 ms Normal sinus rhythm Diffuse Nonspecific T wave abnormality Abnormal ECG When compared with ECG of 09-NOV-2021 05:42, No significant change Confirmed by Dean Arenas ([id number]) on 11/10/2021 3:10:44 PM Referred By: REFERRED SELF Confirmed By:Dean Arenas
--- NOTE | 2021-11-10 15:21 | Electrocardiogram Report ---
Test Reason : Blood Pressure : / mmHG Vent. Rate : 101 BPM Atrial Rate : 101 BPM P-R Int : 144 ms QRS Dur : 074 ms QT Int : 340 ms P-R-T Axes : 052 023 054 degrees QTc Int : 440 ms Sinus tachycardia Low voltage QRS Diffuse Nonspecific T wave abnormality Borderline ECG When compared with ECG of 09-NOV-2021 15:25, No significant change Confirmed by Dean Arenas ([id number]) on 11/10/2021 3:21:14 PM Referred By: REFERRED SELF Confirmed By:Dean Arenas
[2021-11-10] MEDS: DEXTROSE 5% IV SCH (15:22)
[2021-11-10] MEDS: ACETYLCYSTEINE IV SCH (15:22)
[2021-11-10] MEDS ORDERED: PHYTONADIONE 10 MG in DEXTROSE 5% 50 ML IV ONE (16:15)
[2021-11-10 16:54] LABS: Alkaline Phosphatase 80 U/L (34-104); Aspartate Aminotransferase 6045 U/L (13-39); Bilirubin Direct 0.7 mg/dl (0-0.2); Bilirubin,Total 1.6 mg/dl (0.2-1.0); Total Protein 4.8 gm/dl (6.0-8.3)
[2021-11-10 17:24] LABS: Alanine Aminotransferase > 2500 U/L (7-52)
[2021-11-10 18:09] LABS: BUN Creatinine Ratio 17.6 (10-20); Calcium 8.4 mg/dl (8.5-10.1); Creatinine Clr Calc Pharmacy 84.7 ml/min; Est GFR (Non-African American) 94.1 ml/min; Potassium 3.8 mmol/L (3.5-5.1)
[2021-11-10] MEDS: POLYETHYLENE (MIRALAX) 17 GM PACK PO SCH (20:51)
[2021-11-10] MEDS: rifAXIMin 550 MG TABLET PO SCH ×2 (20:51→20:53)
[2021-11-10] MEDS: MELATONIN 3 MG TAB PO SCH (20:53)
[2021-11-11] MEDS: NSS + 20MEQ KCL 20 MEQ/1,000 ML BAG IV SCH ×2 (00:54→11:34)
[2021-11-11 06:20] LABS: Hemoglobin 12.1 g/dL (12.0-16.0); Mean Corpuscular Hemoglobin 31.7 pg (25-34); Mean Corpuscular Hgb Conc 34.6 g/dL (32-36); Mean Corpuscular Volume 91.6 fL (80-100); Mean Platelet Volume 10.4 fL (7.4-10.4); Platelet Count 129 K/uL (130-400); RDW Coefficient of Variation 12.5 % (11.5-14.5); RDW Standard Deviation 42.5 fL (36.4-46.3); Red Blood Count 3.82 M/uL (4.2-5.4); White Blood Count 6.35 K/uL (4.8-10.8)
[2021-11-11 06:45] LABS: Anion Gap 5 (3-11); BUN Creatinine Ratio 17.9 (10-20); Blood Urea Nitrogen 7 mg/dl (6-23); Calcium 8.3 mg/dl (8.5-10.1); Carbon Dioxide 23 mmol/L (21-32); Chloride 109 mmol/L (98-107); Creatinine Clr Calc Pharmacy 110.6 ml/min; Est GFR (African American) 119.1 ml/min; Est GFR (Non-African American) 102.7 ml/min; Glucose 100 mg/dl (70-99(Fasting)); Potassium 3.7 mmol/L (3.5-5.1); Sodium 137 mmol/L (136-145)
[2021-11-11 06:46] LABS: Albumin Globulin Ratio 1.5 (0.9-2); Albumin Level 2.6 gm/dl (3.4-5.0); Alkaline Phosphatase 87 U/L (34-104); Bilirubin,Total 1.8 mg/dl (0.2-1.0); Globulin 1.7 gm/dl (2.5-4.0); Total Protein 4.3 gm/dl (6.0-8.3)
[2021-11-11 07:05] LABS: INR 2.2 (0.9-1.1); Prothrombin Time 22.6 Seconds (9.0-12.0)
[2021-11-11 07:27] LABS: Aspartate Aminotransferase 2306 U/L (13-39)
[2021-11-11 07:51] LABS: Alanine Aminotransferase > 2500 U/L (7-52)
[2021-11-11] MEDS: DEXTROSE 5% IV SCH (07:57)
[2021-11-11] MEDS: ACETYLCYSTEINE IV SCH (07:57)
--- NOTE | 2021-11-11 08:37 | Electrocardiogram Report ---
Test Reason : Blood Pressure : / mmHG Vent. Rate : 108 BPM Atrial Rate : 108 BPM P-R Int : 150 ms QRS Dur : 074 ms QT Int : 308 ms P-R-T Axes : 052 051 054 degrees QTc Int : 412 ms Sinus tachycardia Low voltage QRS Borderline ECG When compared with ECG of 10-NOV-2021 07:34, Diffuse Nonspecific T wave abnormality no longer present Confirmed by Dean Arenas ([id number]) on 11/11/2021 8:36:31 AM Referred By: REFERRED SELF Confirmed By:Dean Arenas
[2021-11-11 08:44] LABS: Hepatitis B Surf Ag Rflx Conf Neg (Neg)
--- NOTE | 2021-11-11 08:51 | Medical Student Progress Note ---
Date of Service November 11, 2021 Assessment & Plan (1) Liver failure, acute: Plan: Patient is a 75-year-old female with a history of hyperlipidemia, hypertension, DVT, and depression/anxiety who presented to the ED on 11/08 via ambulance from her home after ingesting an unknown quantity of Tami-[place], Acetaminophen, and Aleve. She presented with encephalopathy and was admitted for workup of encephalopathy and presumed acetaminophen overdose. Acute liver failure - 2/2 acetaminophen overdose - r/o other etiologies (R sided ventricular dysfunction, venous congestion, ischemic liver injury, autoimmune) -echo 11/10:significant for: hyperdynamic LV, EF > 70%, borderline concentric LV hypertrophy, Grade 1 diastolic pattern (abn relaxation pattern), mild to moderately dilated RV, no significant valvular disease (overall limited exam). RV dysfx less likely given these findings. -portal vein U/S:limited exam (pt unable to hold breath), hepatic and portal veins patent, hepatopedal flow w/in portal vein, peripherally calcified lesion in R hepatic lobe (3.0 x 2.9 x 2.9 cm). Several hepatic cysts up to 2.5 cm each. Can r/o ischemic liver injury and venous congestion w/ these findings - per [facility] hepatology; due to pt age, dementia, DNR/DNI status, would not be a candidate for liver transplant - coags: INR improving and downtrending from 3.2 to 2.2 after 10 mg Vit K IV yesterday. repeat today - improving transaminitis - Autoimmune panel, Hep B, Hep C antibody pending - monitor for jaundice and other liver sxs - continue trending PT/INR, liver function tests, acetaminophen levels - per poison control rec: maintain K+ > 4, Mag > 2 due to tami seltzer overdose Encephalopathy - toxic vs metabolic etiology - complicated by dementia at baseline - ABG: pH 7.48/30/79/22 [respiratory alkalosis] - Na improved to 137 - U/A WNL - Drug screen Negative - continue miralax and rifaximin, due to ammonia of 192 Tylenol overdose - ingestion of Tylenol, Aspirin, Tami-[place] (unknown quantity) - Seemingly unintentional, patient has hx of depression/anxiety, but also reports declining cognition since then, seems as though there is some underlying dementia. - Poison control contacted, extended to 72 hour NAC protocol (as of 11/10) - acetaminophen level trending down - IVF with LRs at 80cc/hr - Trend CBC, BMP, LFTs, PT/INR as well as salicylate and acetaminophen levels for AM labs Prolonged QT syndrome, resolved - QT and QTc intervals continue to downtrend - patient was tachycardic to 118 overnight, in sinus rhythm - EKG from 11/11 QTc: 412 ms - continue cardiac monitoring, monitoring for cardiac sxs Malnutrition - 2 year history of weight loss and lack of appetite - pt has lost approx 60 lbs since November 2019 - daily standing weights to monitor weight gain - Draw TSH, Free T3/Free T4 with PM labs - consider thick fluids diet - supplement diet with boost, TID - consult nutrition Depression with anxiety - psych consulted, appreciate recs - plan to start Mirtazapine when sodium is stable and patient is stable Hypokalemia - most recently trending up (3.7) - continue goal >4 as above, replete as needed Hyperglycemia - monitored, no interventions at this time - consider A1C (last one was 03/2020; 5.7) Hyperlipidemia - pt previously on atorvastatin 10 mg, pt has not taken since Apr 2020 - consider lipid panel to evaluate if pt at risk for CAD - consider discussion with patient about restarting rx if indicated cognitive and behavioral changes - 2 year h/o declining short term memory and acute confusion episodes, auditory hallucinations (talking to people who are not there), paranoia (opening doors at night looking for things)and weeks of stuporous episodes (staying in bed for weeks at a time) per pt's - pt herself unsure of how her memory is doing - consider starting medication for memory and testing for cognitive ability in outpatient setting, when patient is stable goals of care - patient unable to complete ADL's independently at this time, complicated by underlying dementia, delirium, and malnourishment - consider goals of care in outpatient setting DVT ppx: contraindicated due to elevated INR FEN/GI: thick fluid diet, boost supplement, LR 80 cc/hr Code Status: DNR/DNI Dispo: med/surg tele, improving. discharge uncertain. (2) Encephalopathy: (3) Tylenol overdose: (4) Prolonged QT interval: (5) Malnutrition: (6) Depression with anxiety: (7) Hypokalemia: (8) Hyperglycemia: (9) Hyperlipidemia: (10) Cognitive and behavioral changes: (11) Goals of care, counseling/discussion: Admission and Anticipated Discharge Date Admission Date: November 08, 2021 Supervising Attestation Medical Student Supervision Note: I was personally present during medical student patient encounter and independently interviewed and examined the patient and verified the faust history and physical, reviewed labs and image studies, discussed the case with Dianne Zelaya and agree with the findings and care plan. Toxic encephalopathy in setting of Polypharm OD Dementia causing Polypharm OD Acute hepatitis in setting of tylenol overdose - Improving transaminases. Per poison control - continue to monitor labs. Echo/liver doppler normal. other labs pending. Vitamin K for elevated INR Rifaxin for elevated ammonia Depression/Anxiety Start mirtazepine once liver function stablizes. Weight loss with early dementia Encourage PO intake. Subjective Patient is a 75-year-old female with a history of hyperlipidemia, hypertension, DVT, and depression/anxiety who presented to the ED on 11/08 via ambulance from her home after ingesting an unknown quantity of Tami[place], Acetaminophen, and Aleve. She presented with encephalopathy and was admitted for workup of encephalopathy and presumed acetaminophen overdose. Overnight, no acute events. Patient was tachycardic to 118, in sinus rhythm. Patient's nurse stated pt slept through the entire night. This morning, patient was lying stiffly in bed without sheets or blankets. Patient would not actively participate in conversation with me. Patient refused to answer questions or communicate regarding how she is doing and ROS questions. Review of Systems Review of Systems: All systems reviewed & are unremarkable except as noted in Subjective Physical Exam Constitutional: + thin and + frail appearing stiff appearance Eyes: small area of swelling/erythema on L lower eyelid; patient refused to open eyes during evaluation Neck: trachea midline, no thyromegaly Respiratory: normal respiratory effort, lungs clear to auscultation Cardiovascular: Rate/Rhythm: regular rhythm and + tachycardic Extremities: normal capillary refill; no edema Gastrointestinal (Abdomen): Inspection/Auscultation: abdomen normal to inspection and + hypoactive bowel sounds Skin: no rashes, warm and dry Psychiatric: Orientation: + not alert and + not oriented x 3 pt not open to communicating with team this morning Lymphatic: no cervical lymphadenopathy Results & Data ([facility]) Vital Signs (Past 12 Hours) Vital Signs Temp Pulse Pulse Resp BP Pulse Ox Pulse Ox 11/11/21 07:33 82 11/11/21 04:00 36.5 C 118 H 20 146/84 H 96 11/10/21 22:39 107 H 11/10/21 22:09 36.9 C 100 H 16 145/85 H 94 94 Laboratory Results Laboratory Results WBC 6.35 K/uL (4.8-10.8) 11/11/21 05:45 RBC 3.82 M/uL (4.2-5.4) L 11/11/21 05:45 Hgb 12.1 g/dL (12.0-16.0) 11/11/21 05:45 Hct 35.0 % (37-47) L 11/11/21 05:45 MCV 91.6 fL (80-100) 11/11/21 05:45 MCH 31.7 pg (25-34) 11/11/21 05:45 MCHC 34.6 g/dL (32-36) 11/11/21 05:45 RDW Std Deviation 42.5 fL (36.4-46.3) 11/11/21 05:45 RDW Coeff of Jac 12.5 % (11.5-14.5) 11/11/21 05:45 Plt Count 129 K/uL (130-400) L 11/11/21 05:45 MPV 10.4 fL (7.4-10.4) 11/11/21 05:45 Immature Gran % (Auto) 0.0 % 11/09/21 08:02 Neut % (Auto) 79.9 % 11/09/21 08:02 Lymph % (Auto) 15.0 % 11/09/21 08:02 [place] % (Auto) 4.7 % 11/09/21 08:02 Eos % (Auto) 0.0 % 11/09/21 08:02 Baso % (Auto) 0.4 % 11/09/21 08:02 Neut # (Auto) 4.38 K/uL (1.4-6.5) 11/09/21 08:02 Lymph # (Auto) 0.82 K/uL (1.2-3.4) L 11/09/21 08:02 [place] # (Auto) 0.26 K/uL (0.11-0.59) 11/09/21 08:02 Eos # (Auto) 0.00 K/uL (0-0.5) 11/09/21 08:02 Baso # (Auto) 0.02 K/uL (0-0.2) 11/09/21 08:02 Immature Gran # (Auto) 0.00 K/uL (0.00-0.02) 11/09/21 08:02 PT 22.6 Seconds (9.0-12.0) H 11/11/21 05:45 INR 2.2 (0.9-1.1) H 11/11/21 05:45 APTT 34.7 Seconds (21.0-31.0) H 11/10/21 04:12 PTT Ratio 1.3 11/10/21 04:12 ABG pH 7.48 (7.35-7.45) H 11/10/21 06:40 ABG pCO2 30 mmHg (35-46) L 11/10/21 06:40 ABG pO2 79 mmHg (80-95) L 11/10/21 06:40 ABG HCO3 22 mmol/L (19-24) 11/10/21 06:40 ABG O2 Saturation 96.0 % (90-95) H 11/10/21 06:40 ABG Base Excess -0.7 mEq/L (-9-1.8) 11/10/21 06:40 Pepe Test Pos (Pos) 11/10/21 06:40 VBG pH 7.46 (7.36-7.41) H 11/08/21 20:40 VBG pCO2 35 mmHg (38-50) L 11/08/21 20:40 VBG pO2 25 mmHg 11/08/21 20:40 VBG HCO3 24 mmol/L 11/08/21 20:40 VBG O2 Saturation < 60.0 % 11/08/21 20:40 VBG Base Excess 0.7 mEq/L 11/08/21 20:40 Barometric Pressure 733.7 mm/Hg 11/10/21 06:40 Oxygen Given ROOM AIR 11/10/21 06:40 Sodium 137 mmol/L (136-145) 11/11/21 05:45 Potassium 3.7 mmol/L (3.5-5.1) 11/11/21 05:45 Chloride 109 mmol/L (98-107) H 11/11/21 05:45 Carbon Dioxide 23 mmol/L (21-32) 11/11/21 05:45 Anion Gap 5 (3-11) 11/11/21 05:45 BUN 7 mg/dl (6-23) 11/11/21 05:45 Creatinine 0.39 mg/dl (0.6-1.2) L 11/11/21 05:45 Est Cr Clr Drug Dosing 110.6 ml/min 11/11/21 05:45 Est GFR ( Amer) 119.1 ml/min 11/11/21 05:45 Est GFR (Non-Af Amer) 102.7 ml/min 11/11/21 05:45 BUN/Creatinine Ratio 17.9 (10-20) 11/11/21 05:45 Glucose 100 mg/dl (70-99(Fasting)) H 11/11/21 05:45 Lactate 1.9 mmol/L (0.4-2.0) 11/10/21 06:40 Calcium 8.3 mg/dl (8.5-10.1) L 11/11/21 05:45 Magnesium 1.8 mg/dl (1.7-2.4) 11/10/21 06:33 Total Bilirubin 1.8 mg/dl (0.2-1.0) H 11/11/21 05:45 Direct Bilirubin 0.7 mg/dl (0-0.2) H 11/10/21 14:01 AST 2306 U/L (13-39) H 11/11/21 05:45 ALT > 2500 U/L (7-52) H 11/11/21 05:45 Alkaline Phosphatase 87 U/L (34-104) 11/11/21 05:45 Ammonia 192.0 umol/L (18-72) H 11/10/21 06:41 Total Creatine Kinase 86 U/L (26-192) 11/08/21 19:30 Total Protein 4.3 gm/dl (6.0-8.3) L 11/11/21 05:45 Albumin 2.6 gm/dl (3.4-5.0) L 11/11/21 05:45 Globulin 1.7 gm/dl (2.5-4.0) L 11/11/21 05:45 Albumin/Globulin Ratio 1.5 (0.9-2) 11/11/21 05:45 Lipase 28 U/L (11-82) 11/08/21 19:30 Urine Color Dark Yellow 11/09/21 14:05 Urine Appearance Clear (Clear) 11/09/21 14:05 Urine pH 5.0 (4.5-7.5) 11/09/21 14:05 Ur Specific [place] 1.036 (1.000-1.030) H 11/09/21 14:05 Urine Protein Negative (Negative) 11/09/21 14:05 Urine Glucose (UA) Negative (Negative) 11/09/21 14:05 Urine Ketones 1+ (Negative) H 11/09/21 14:05 Urine Blood Negative (Negative) 11/09/21 14:05 Urine Nitrite Negative (Negative) 11/09/21 14:05 Urine Bilirubin 1+ (Negative) H 11/09/21 14:05 Urine Urobilinogen Negative (Negative) 11/09/21 14:05 Ur Leukocyte Esterase Trace (Negative) H 11/09/21 14:05 Urine WBC (Auto) 5-10 /hpf (0-5) H 11/09/21 14:05 Urine RBC (Auto) 0-4 /hpf (0-4) 11/09/21 14:05 U Hyaline Cast (Auto) 1-5 /lpf (0-5) 11/09/21 14:05 U Epithel Cells (Auto) >30 /lpf (0-5) H 11/09/21 14:05 Urine Bacteria (Auto) Negative (Negative) 11/09/21 14:05 Ur Renal Epithelial Cell 0-5 /lpf (0-5) 11/09/21 14:05 Urine Yeast Not Reportable 11/09/21 14:05 Salicylates 6.2 mg/dl (3.0-30) 11/08/21 19:30 Urine Opiates Screen Neg (Neg) 11/09/21 14:05 Ur Methadone, Qual Neg (Neg) 11/09/21 14:05 Acetaminophen 16 ug/ml (10-30) 11/10/21 14:01 Urine Barbiturates Neg (Neg) 11/09/21 14:05 Ur Phencyclidine (PCP) Neg (Neg) 11/09/21 14:05 U Amphetamin/Meth Scrn Neg (Neg) 11/09/21 14:05 MDMA (Ecstasy) Screen Neg (Neg) 11/09/21 14:05 U Benzodiazepines Scrn Neg (Neg) 11/09/21 14:05 Ur Cocaine Metabolite Neg (Neg) 11/09/21 14:05 U Marijuana (THC) Screen Neg (Neg) 11/09/21 14:05 Ethyl Alcohol mg/dL < 10.0 mg/dl (<10.0) 11/08/21 19:30 Hep Bs Antigen Neg (Neg) 11/10/21 14:01 Hepatitis C Ab Screen Neg (Neg) 11/09/21 08:02 Hepatitis C Antibody Neg (Neg) 11/10/21 14:01 SARS-CoV-2, RNA, NAAT NEGATIVE (NEGATIVE) 11/08/[address] 11/08/21 18:41 CT head/brain wo con CLINICAL HISTORY: Patient confusion. Reported accidental overdose COMPARISON STUDY: 02/28/2014 CT DOSE: 537.48 mGy.cm TECHNIQUE: Standard CT of the Brain was performed without IV contrast. A dose lowering technique was utilized adhering to the principles of ALARA. FINDINGS: Extraaxial space: There is no evidence for subdural hematoma. There are no extra-axial fluid collections. Ventricles and cisterns: The ventricles are normal in size and configuration. There is no evidence for midline shift or mass effect. Parenchyma: There is no subarachnoid or intraparenchymal hemorrhage. There is no evidence for an acute infarct or cerebral edema. There is mild cerebral cortical atrophy present. There is homogeneous attenuation of the brain parenchyma. There are no gross mass lesions. Osseous structures: There is no evidence for an acute fracture. The visualized paranasal sinuses are clear. The mastoid air cells are clear bilaterally. Soft tissues: There is no evidence for focal soft tissue swelling. IMPRESSION: 1. No acute intracerebral pathology. 2. Mild cerebral cortical atrophy. ACT 112: Negative or not required by law. Electronically signed by: Elvis Melendrez M.D. 11/08/2021 7:09 PM Portal Vein US 11/10/21 10:58 US duplex portal hepatic veins HISTORY: 75 years-old Female Liver failure COMPARISON: None TECHNIQUE: Multiple real-time sonographic images of the hepatic vasculature were obtained assessing grayscale appearance, color and spectral flow FINDINGS: Limited exam secondary to patient inability to breath-hold. The hepatic and portal veins appear patent. Hepatopedal flow within the portal vein. Peripherally calcified lesion within the right hepatic lobe measures 3.0 x 2.9 x 2.9 cm. Several hepatic cysts measure up to 2.5 cm. IMPRESSION: Limited exam with patent hepatic vasculature. ACT 112: Negative or not required by law. The above report was generated using voice recognition software. It may contain grammatical, syntax or spelling errors. Electronically signed by: Dimitri Del Valle M.D. 11/10/2021 2:07 PM
[2021-11-11 09:14] LABS: Hepatitis C IgG 13Yrs+Old_Rflx Neg (Neg)
[2021-11-11] MEDS: POLYETHYLENE (MIRALAX) 17 GM PACK PO SCH ×2 (09:30→20:27)
[2021-11-11] MEDS: rifAXIMin 550 MG TABLET PO SCH ×2 (09:30→20:27)
--- NOTE | 2021-11-11 10:41 | Gastroenterology Progress Note ---
Date of Service November 11, 2021 Assessment & Plan (1) Liver failure, acute: Plan: -Consider US Liver to exclude other underlying issues -Await autoimmune panel -Continue Vitamin K x 72 hour total per hepatology recommendations -Continue to monitor ALT/INR q 12 hours -Patient is not a transplant candidate so will continue with conservative monitoring and treatment -Continue Xifaxan 550 mg BID -Continue Miralax 1-2 times daily -Agree with primary team that ongoing reassessment of goals of care is important in this clinical situation Admission and Anticipated Discharge Date Admission Date: November 08, 2021 Subjective Patient is a 75 yo female with acute liver failure 2/2 Tylenol overdose. Infectious hepatitis studies are negative thus far. Autoimmune work-up is pending. Doppler US liver unremarkable for issues with blood flow. Patient awakens, but does not engage in communication. INR has improved to 2.2 today. Autoimmune hepatitis is pending. Patient continues on Vitamin K per hepatology recommendations.AST is 2306, ALT >2500. T Bili 1.8. Review of Systems Review of Systems: Unobtainable due to cognitive status Physical Exam Constitutional: no acute distress Respiratory: normal respiratory effort Gastrointestinal (Abdomen): Inspection/Auscultation: abdomen normal to inspection Percussion/Palpation: abdomen soft; abdomen nontender Musculoskeletal: Head/Neck/Chest: normocephalic Results & Data Results & Data ([facility]) Vital Signs (Past 12 Hours) Vital Signs Temp Pulse Pulse Resp BP Pulse Ox 11/11/21 07:33 82 11/11/21 04:00 36.5 C 118 H 20 146/84 H 96 11/10/21 22:39 107 H PG Care Time/CCT Total # of Minutes Spent Total Time Spent with Patient: Total time spent is greater than 50% in coordination of care (as documented) at patient's floor/unit and/or counseling patient: Coding Level of Care Code 94471 Subseq Hosp Care Lvl 3 Diagnoses Liver failure, acute K72.00
--- NOTE | 2021-11-11 13:21 | Ultrasound Report ---
ABDOMINAL ULTRASOUND, RIGHT UPPER QUADRANT HISTORY: Acute liver failure. COMPARISON: None. FINDINGS: Pancreas: The pancreas demonstrates a normal echotexture. Liver: Scattered hepatic cysts measuring up to 2.5 cm. No intrahepatic bile duct dilatation. Gallbladder: Edematous and thickened gallbladder wall measuring up to 9 mm. There is a small amount o f sludge within the gallbladder. No definite gallstones. Trace pericholecystic fluid is noted. CBD: 5 mm. Right kidney: No hydronephrosis. IMPRESSION: 1. Thickened and edematous gallbladder wall with a small amount of gallbladder sludge. No definite ga llstones. This is nonspecific but could be secondary to underlying hepatic disease or an acalculous a cute cholecystitis. Clinical correlation recommended. 2. Normal caliber common bile duct. 3. Hepatic cysts. ACT 112: Negative or not required by law. Electronically signed by: Mickey Driver M.D. 11/11/2021 1:19 PM
[2021-11-11] MEDS ORDERED: PHYTONADIONE 10 MG in DEXTROSE 5% 50 ML IV ONE (18:00)
[2021-11-11] MEDS: MELATONIN 3 MG TAB PO SCH (20:27)
[2021-11-11 20:33] LABS: INR 1.7 (0.9-1.1); Prothrombin Time 17.6 Seconds (9.0-12.0)
[2021-11-11 20:55] LABS: Alanine Aminotransferase > 2500 U/L (7-52); Albumin Level 2.5 gm/dl (3.4-5.0); Alkaline Phosphatase 88 U/L (34-104); Aspartate Aminotransferase 820 U/L (13-39); Bilirubin Direct 1.3 mg/dl (0-0.2); Bilirubin,Total 2.1 mg/dl (0.2-1.0); Total Protein 4.1 gm/dl (6.0-8.3)
[2021-11-11 21:28] LABS: Thyroid Stimulating Hormone 1.856 uIu/ml (0.300-4.500)
[2021-11-11 21:30] LABS: T4 Free Thyroxine 1.32 ng/dl (0.61-1.60)
[2021-11-12] MEDS: DEXTROSE 5% IV SCH ×2 (00:13→16:38)
[2021-11-12] MEDS: ACETYLCYSTEINE IV SCH ×2 (00:13→16:38)
[2021-11-12] MEDS: NSS + 20MEQ KCL 20 MEQ/1,000 ML BAG IV SCH ×2 (00:14→11:52)
[2021-11-12 03:11] LABS: Hepatitis A Antibody IgM NON-REACTIVE (NON-REACTIVE); Hepatitis B Core Antibody IgM NON-REACTIVE (NON-REACTIVE)
--- NOTE | 2021-11-12 07:11 | Hospitalist Progress Note ---
Date of Service November 12, 2021 Assessment & Plan (1) Malnutrition: (2) Liver failure, acute: (3) Tylenol overdose: (4) Cognitive and behavioral changes: (5) Depression with anxiety: Plan: (1) Liver failure, acute: Plan: Patient is a 75-year-old female with a history of hyperlipidemia, hypertension, DVT, and depression/anxiety who presented to the ED on 11/08 via ambulance from her home after ingesting an unknown quantity of Pooja[place], Acetaminophen, and Aleve. She presented with encephalopathy and was admitted for workup of encephalopathy and presumed acetaminophen overdose. Acute liver failure - 2/2 acetaminophen overdose. - GI consulted. Recommended - transfer to tertiary care. Per tertiary care - Not considered liver transplant candidate - Echo and liver doppler neg. - transaminitis AST max 6045 --> 402 today. s/p NAC protocol. - ammonia 192 -> 54. received rifaximin. - coags: INR 3.2 on admit, given IV vit K, today 1.4 - Autoimmune panel pending, Hep B, Hep C antibody negative for other etiology. Toxic encephalopathy in setting of Polypharm OD - complicated by dementia at baseline - Mentation clearing but has been refusing PO medication Polypharmacy overdose Dementia causing Polypharm OD - ingestion of Tylenol, Aspirin, Pooja[place] (unknown quantity) - Seemingly unintentional, patient has hx of depression/anxiety, but also reports declining cognition since then, seems as though there is some underlying dementia. - Poison control contacted, extended to 72 hour NAC protocol (as of 11/10) - completed - per poison control rec: maintain K+ > 4, Mag > 2 due to pooja seltzer overdose Prolonged QT syndrome, resolved - QT and QTc intervals continue to downtrend - patient was tachycardic to 118 overnight, in sinus rhythm - EKG from 11/11QTc: 412 ms Malnutrition - 2 year history of weight loss and lack of appetite - pt has lost approx 60 lbs since November 2019 - daily standing weights to monitor weight gain - TSH, Free T4 wnl Free T3 low 1.81 - consult nutrition thick fluids diet supplement diet with boost, TID consider MANAGER OF SALES consult - will consult MANAGER OF SALES if PO intake continues to be limited. Depression with anxiety - psych consulted, appreciate recs - start mirtazepine 11/12 goals of care - patient unable to complete ADL's independently at this time, complicated by underlying dementia, delirium, and malnourishment - consider goals of care in outpatient setting DVT ppx: contraindicated due to elevated INR FEN/GI: thick fluid diet, boost supplement, LR 80 cc/hr Code Status: DNR/DNI Dispo: med/surg tele, improving. discharge uncertain. Admission and Anticipated Discharge Date Admission Date: November 08, 2021 Supervising Physician Co-Signing Physician Notes Resident Physician Supervision Note: I independently interviewed and examined the patient and verified the faust history and physical, reviewed labs and image studies and agree with resident Dr. Baker findings and care plan. Subjective Patient seen at bedside, asleep comfortable. Patient did not react to most questions, however she did acknowledge that we would update her , she does not have anything to let her know at this time. Patient did not show any grimace with abdominal palpation, no tremors while at rest. Review of Systems Review of Systems: Unobtainable due to reduced consciousness Physical Exam Constitutional: WD/WN, vitals as above comfortable Asleep ENMT: external ear and nose normal, oropharynx normal Neck: trachea midline, no thyromegaly Respiratory: normal respiratory effort, lungs clear to auscultation Cardiovascular: RRR, no murmur, no edema Chest (Breasts): Chest: normal inspection of chest Gastrointestinal (Abdomen): normal bowel sounds, soft, nontender, no hepatosplenomegaly Skin: no rashes, warm and dry Results & Data Results & Data ([facility]) Vital Signs (Past 12 Hours) Vital Signs Temp Pulse Pulse Resp BP Pulse Ox 11/12/21 07:03 75 11/12/21 04:03 36.5 C 100 H 18 128/82 96 11/11/21 23:14 90 11/11/21 23:03 36.6 C 91 H 18 138/76 94 Resident Activity Tracking Resident Involvement: Resident Care Provided Care Provided: Adult Hospital Medicine
[2021-11-12 08:11] LABS: Hematocrit (blood only) 36.1 % (37-47); Hemoglobin 12.2 g/dL (12.0-16.0); Mean Corpuscular Hemoglobin 31.3 pg (25-34); Mean Corpuscular Hgb Conc 33.8 g/dL (32-36); Mean Corpuscular Volume 92.6 fL (80-100); Mean Platelet Volume 9.9 fL (7.4-10.4); Platelet Count 137 K/uL (130-400); RDW Coefficient of Variation 12.9 % (11.5-14.5); RDW Standard Deviation 43.6 fL (36.4-46.3); White Blood Count 4.64 K/uL (4.8-10.8)
[2021-11-12 08:26] LABS: INR 1.4 (0.9-1.1); Prothrombin Time 15.1 Seconds (9.0-12.0)
[2021-11-12 08:42] LABS: Anion Gap 4 (3-11); BUN Creatinine Ratio 13.5 (10-20); Blood Urea Nitrogen 5 mg/dl (6-23); Calcium 7.4 mg/dl (8.5-10.1); Carbon Dioxide 23 mmol/L (21-32); Chloride 110 mmol/L (98-107); Creatinine Clr Calc Pharmacy 117.2 ml/min; Est GFR (African American) 121.2 ml/min; Est GFR (Non-African American) 104.5 ml/min; Glucose 106 mg/dl (70-99(Fasting)); Potassium 3.7 mmol/L (3.5-5.1); Sodium 137 mmol/L (136-145)
[2021-11-12] MEDS: POLYETHYLENE (MIRALAX) 17 GM PACK PO SCH ×2 (08:56→22:51)
[2021-11-12] MEDS: rifAXIMin 550 MG TABLET PO SCH ×2 (08:56→22:51)
[2021-11-12 09:30] LABS: Alanine Aminotransferase > 2500 U/L (7-52)
[2021-11-12 09:31] LABS: Albumin Globulin Ratio 1.3 (0.9-2); Albumin Level 2.5 gm/dl (3.4-5.0); Alkaline Phosphatase 101 U/L (34-104); Aspartate Aminotransferase 402 U/L (13-39); Bilirubin,Total 2.6 mg/dl (0.2-1.0); Globulin 1.9 gm/dl (2.5-4.0); Total Protein 4.4 gm/dl (6.0-8.3)
--- NOTE | 2021-11-12 10:43 | Gastroenterology Progress Note ---
Date of Service November 12, 2021 Assessment & Plan (1) Liver failure, acute: Plan: -US indicated thickened edematous gallbladder with sludge consistent with either underlying hepatic disease vs acute acalculous cholecystitis. Currently she has no RUQ pain on exam and is resting peacefully in bed. Continue to monitor for clinical changes. -Await autoimmune panel -Continue Vitamin K x 72 hour total per hepatology recommendations -Continue to monitor ALT/INR q 12 hours -Patient is not a transplant candidate so will continue with conservative monitoring and treatment -Continue Xifaxan 550 mg BID -Continue Miralax 1-2 times daily -Agree with primary team that ongoing reassessment of goals of care is important in this clinical situation Admission and Anticipated Discharge Date Admission Date: November 08, 2021 Subjective Patient resting comfortably in bed. She opens her eyes and will say hello to me, but no further interaction could be provoked. Labs today indicate a downtrending INR of 1.4, AST 402, and ALT >2500. Review of Systems Review of Systems: Unobtainable due to cognitive status Physical Exam Constitutional: no acute distress Respiratory: normal respiratory effort Gastrointestinal (Abdomen): Inspection/Auscultation: abdomen normal to inspection Musculoskeletal: Head/Neck/Chest: normocephalic Results & Data Results & Data ([facility]) Vital Signs (Past 12 Hours) Vital Signs Temp Pulse Pulse Resp BP Pulse Ox 11/12/21 07:59 36.8 C 90 18 134/79 96 11/12/21 07:03 75 11/12/21 04:03 36.5 C 100 H 18 128/82 96 11/11/21 23:14 90 11/11/21 23:03 36.6 C 91 H 18 138/76 94 PG Care Time/CCT Total # of Minutes Spent Total Time Spent with Patient: Total time spent is greater than 50% in coordination of care (as documented) at patient's floor/unit and/or counseling patient: Coding Level of Care Code 49436 Subseq Hosp Care Lvl 3 Diagnoses Liver failure, acute K72.00
[2021-11-12 12:33] LABS: INR 1.4 (0.9-1.1); Prothrombin Time 14.9 Seconds (9.0-12.0)
[2021-11-12 13:04] LABS: Alanine Aminotransferase > 2500 U/L (7-52); Aspartate Aminotransferase 332 U/L (13-39)
[2021-11-12 14:21] LABS: Anti Mitochondrial Antibody NEGATIVE (NEGATIVE); Anti Nuclear Antibody Screen NEGATIVE (NEGATIVE); Smooth Muscle Antibody NEGATIVE (NEGATIVE)
[2021-11-12] MEDS ORDERED: [UNRECOGNIZED DRUG - REMARK] ONE (14:59)
[2021-11-12] MEDS ORDERED: MIRTAZAPINE TAB 15 MG TAB PO SCH (21:00)
[2021-11-12] MEDS: MELATONIN 3 MG TAB PO SCH (22:50)
[2021-11-13] MEDS: NSS + 20MEQ KCL 20 MEQ/1,000 ML BAG IV SCH ×2 (00:53→13:27)
[2021-11-13 07:23] LABS: Hematocrit (blood only) 35.2 % (37-47); Mean Corpuscular Hemoglobin 31.7 pg (25-34); Mean Corpuscular Hgb Conc 34.1 g/dL (32-36); Mean Corpuscular Volume 93.1 fL (80-100); Mean Platelet Volume 9.7 fL (7.4-10.4); Platelet Count 151 K/uL (130-400); RDW Coefficient of Variation 12.9 % (11.5-14.5); RDW Standard Deviation 43.9 fL (36.4-46.3); Red Blood Count 3.78 M/uL (4.2-5.4); White Blood Count 3.11 K/uL (4.8-10.8)
--- NOTE | 2021-11-13 07:31 | Hospitalist Progress Note ---
Date of Service November 13, 2021 Assessment & Plan (1) Malnutrition: (2) Liver failure, acute: (3) Tylenol overdose: (4) Cognitive and behavioral changes: (5) Depression with anxiety: Plan: (1) Liver failure, acute: Plan: Patient is a 75-year-old female with a history of hyperlipidemia, hypertension, DVT, and depression/anxiety who presented to the ED on 11/08 via ambulance from her home after ingesting an unknown quantity of Pooja-[place], Acetaminophen, and Aleve. She presented with encephalopathy and was admitted for workup of encephalopathy and presumed acetaminophen overdose. Acute liver failure - 2/2 acetaminophen overdose. - GI consulted. Recommended - transfer to tertiary care. Per tertiary care - Not considered liver transplant candidate - Echo and liver doppler neg. - Autoimmune panel neg, Hep B, Hep C antibody negative for other etiology. - s/p NAC protocol. - transaminitis AST max 6045 --> 152 today. - ammonia 192 -> 54. received rifaximin. - coags: INR 3.2 on admit, given IV vit K, latest 1.3 Toxic encephalopathy in setting of Polypharm OD - complicated by dementia at baseline - Mentation clearing but has been refusing PO medication and communication when family not present Polypharmacy overdose Dementia causing Polypharm OD - ingestion of Tylenol, Aspirin, Pooja-[place] (unknown quantity) - Seemingly unintentional, patient has hx of depression/anxiety, but also reports declining cognition since then, seems as though there is some underlying dementia. - Poison control contacted, NAC protocol - completed - per poison control rec: maintain K+ > 4, Mag > 2 due to pooja seltzer overdose Prolonged QT syndrome, resolved - QT and QTc intervals continue to downtrend - patient was tachycardic to 118 overnight, in sinus rhythm - EKG from 11/11QTc: 412 ms Malnutrition - 2 year history of weight loss and lack of appetite - pt has lost approx 60 lbs since November 2019 - daily standing weights to monitor weight gain - TSH, Free T4 wnl Free T3 low 1.81 - consult nutrition thick fluids diet supplement diet with boost, TID consider GEAR FINISHER consult - Discussed with again - 11/13. Lack of PO intake likely from worsening dementia/depression. Follow for remeron response - Hold GEAR FINISHER consult at this time. Depression with anxiety - has been struggling with depressive symptoms for many years. worsening symptoms in last 2 yrs with ? hallucinations. - Sleep has been disturbed at night. - psych consulted start mirtazepine 11/13. should help with appetite, sleep and depression. - discussed with . goals of care - patient unable to complete ADL's independently at this time, complicated by underlying dementia, delirium, and malnourishment - plans to have patient come home, states he is able to care for her - patient will be resistant to any type of short of detention placement. - Discussed getting home health on discharge with transition to palliative care. DVT ppx: contraindicated due to elevated INR FEN/GI: thick fluid diet, boost supplement, LR 80 cc/hr Code Status: DNR/DNI Dispo: med/surg tele, improving. discharge uncertain. Admission and Anticipated Discharge Date Admission Date: November 08, 2021 Supervising Physician Co-Signing Physician Notes Resident Physician Supervision Note: I independently interviewed and examined the patient and verified the faust history and physical, reviewed labs and image studies and agree with resident Dr. Baker findings and care plan. Subjective Patient seen at bedside, comfortable asleep. Patient did not respond to verbal prompting or gentle tapping. Patient clenched eyes shut after eye examination. In afternoon present, patient awake pleasant and conversive, states she would like an orange juice. Per patient and , patient is able to groom and bath herself, no issues with toileting, able to ambulate independently, no issues eating when willing to eat. Patient states she is able to independently select and put on her own clothing. Patient understands that after laying in bed for so long, she may need additional assistance walking and that her should help her walk. states he would like patient to return home after hospitalization, states he is present most of the day and is capable for caring for patient, during times he is getting groceries patient has memorized phone numbers to call for help. Patient's son Kaveh also present to care for patient. Able to give patient her rifaximin while awake, patient agreed to take her antidepressant so long as it will not put her to sleep, reassured patient that this will ultimately help her mood and stay awake for longer, should also help her appetite. Will attempt to give medication right before patient's family leaves. Patient states she enjoys eating steak, meatballs, crabcakes, tuna fish, rasberries, and will eat salad or green beans. Review of Systems Review of Systems: Negative fever chills Negative headache dizziness Negative chest pain palpitations SOB Negative nausea vomitting diarrhea constipation Negative numbness tingling rash swelling Physical Exam Constitutional: WD/WN, vitals as above comfortable ENMT: external ear and nose normal, oropharynx normal Neck: trachea midline, no thyromegaly Respiratory: normal respiratory effort, lungs clear to auscultation Cardiovascular: RRR, no murmur, no edema Chest (Breasts): Chest: normal inspection of chest Gastrointestinal (Abdomen): normal bowel sounds, soft, nontender, no hepatosplenomegaly Skin: no rashes, warm and dry Results & Data Results & Data ([facility]) Vital Signs (Past 12 Hours) Vital Signs Temp Pulse Pulse Resp BP Pulse Ox 11/13/21 07:21 37.1 C 89 18 146/87 H 93 11/13/21 04:33 37.0 C 75 18 137/87 96 11/13/21 04:09 101 H 11/12/21 23:22 37.1 C 102 H 18 136/80 97 11/12/21 19:52 37.1 C 100 H 18 137/81 94 Resident Activity Tracking Resident Involvement: Resident Care Provided Care Provided: Adult Hospital Medicine
[2021-11-13 07:38] LABS: INR 1.3 (0.9-1.1); Prothrombin Time 13.7 Seconds (9.0-12.0)
[2021-11-13 08:02] LABS: BUN Creatinine Ratio 13.5 (10-20); Calcium 7.3 mg/dl (8.5-10.1); Creatinine Clr Calc Pharmacy 116.6 ml/min; Est GFR (African American) 121.2 ml/min; Est GFR (Non-African American) 104.5 ml/min; Potassium 3.6 mmol/L (3.5-5.1)
[2021-11-13 08:03] LABS: Albumin Globulin Ratio 1.5 (0.9-2); Albumin Level 2.5 gm/dl (3.4-5.0); Bilirubin,Total 2.1 mg/dl (0.2-1.0); Globulin 1.7 gm/dl (2.5-4.0); Total Protein 4.2 gm/dl (6.0-8.3)
[2021-11-13] MEDS: DEXTROSE 5% IV SCH (08:23)
[2021-11-13] MEDS: ACETYLCYSTEINE IV SCH (08:23)
[2021-11-13] MEDS: POLYETHYLENE (MIRALAX) 17 GM PACK PO SCH ×2 (13:23→20:59)
[2021-11-13] MEDS: rifAXIMin 550 MG TABLET PO SCH ×2 (15:07→17:40)
[2021-11-13] MEDS: MIRTAZAPINE TAB 15 MG TAB PO SCH (17:39)
[2021-11-13] MEDS: MELATONIN 3 MG TAB PO SCH (20:59)
[2021-11-14] MEDS: NSS + 20MEQ KCL 20 MEQ/1,000 ML BAG IV SCH ×2 (02:02→14:52)
[2021-11-14 06:57] LABS: Hematocrit (blood only) 35.7 % (37-47); Hemoglobin 11.9 g/dL (12.0-16.0); Mean Corpuscular Hemoglobin 31.5 pg (25-34); Mean Corpuscular Hgb Conc 33.3 g/dL (32-36); Mean Corpuscular Volume 94.4 fL (80-100); Mean Platelet Volume 9.8 fL (7.4-10.4); Platelet Count 143 K/uL (130-400); RDW Coefficient of Variation 12.9 % (11.5-14.5); RDW Standard Deviation 44.2 fL (36.4-46.3); Red Blood Count 3.78 M/uL (4.2-5.4); White Blood Count 4.45 K/uL (4.8-10.8)
[2021-11-14 07:05] LABS: INR 1.2 (0.9-1.1); Prothrombin Time 12.2 Seconds (9.0-12.0)
[2021-11-14 07:22] LABS: Albumin Globulin Ratio 1.4 (0.9-2); Albumin Level 2.6 gm/dl (3.4-5.0); BUN Creatinine Ratio 11.9 (10-20); Bilirubin,Total 1.8 mg/dl (0.2-1.0); Calcium 7.6 mg/dl (8.5-10.1); Creatinine Clr Calc Pharmacy 106.3 ml/min; Est GFR (African American) 116.2 ml/min; Est GFR (Non-African American) 100.3 ml/min; Globulin 1.8 gm/dl (2.5-4.0); Potassium 3.7 mmol/L (3.5-5.1); Total Protein 4.4 gm/dl (6.0-8.3)
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
[2021-11-14] MEDS: POLYETHYLENE (MIRALAX) 17 GM PACK PO SCH ×2 (10:25→20:36)
[2021-11-14] MEDS: MIRTAZAPINE TAB 15 MG TAB PO SCH (10:26)
--- NOTE | 2021-11-14 13:23 | Psychiatric Progress Note ---
Date of Service November 14, 2021 Impression / Recommendations Impression delrium/mild cognitive disorder with hx of depression, cannot exclude psychotic features. (1) Depression with anxiety: (2) Tylenol overdose: (3) Cognitive and behavioral changes: b12 or folate if not already done. Remeron does come in jaimie tab if having ongoing difficulty getting her to swallow. rule out that any of the OTC preps at home included Benadryl or other anticholinergic, certainly glaser can occur with but reports of up in middle of night talking to self more consistent with delirium as not present in evening; psychotic depression would be throughout day. can't exclude early presentation of catatonia, if worsens despite Remeron trial, consider benzo trial. would not treate empirically as benzo could worsen underlying delirium component and add to sedation if not catatonia. Risk Factors Assessment Do You Have Access To A Gun?: No Previous Attempt: No Previous Psychiatric Hospitalization: No Hopelessness: No Protective Factors Assessment : Yes Stable Relationships: Yes Supportive Family: Yes Interval History Identifying Information 75 yo woman with history of depression,anxiety, cognitive impairment, HTN, HLD admitted medically after unintentional overdose of acetaminophen, aspirin and tami-seltzer. Psychiatry was consulted for recommendations for anxiety and weight loss. Chief Complaint f/u to initial consult by Dr. Sevilla on 11/09/21 Review of Systems Notes patient unable to complete due to mental status Subjective Subjective Patient was seen & assessed and interval progress reviewed with nursing and Dr. Sotomayor. Patient received first dose of Remeron last pm. I do not see much regarding responding to internal stimuli here in hospital on the chart. had reported her seemingly talking to self in middle of night prior to admission. She initially resisted medications last pm but chart notes administered. Per Dr. Sotomayor patient will not necessarily refuse outright but be difficult to arouse yet react quickly to touch/attempts to engage her which would not be consistent with catatonia. Physical Exam Psychiatric limited by patient cooperation, quite tired, difficult to arouse, meal untouched at bedside. Vital Signs (Past 24 Hours) Last Vital Signs Temp 36.6 C 11/14/21 12:12 Pulse 88 11/14/21 12:12 Resp 18 11/14/21 12:12 BP 131/76 11/14/21 12:12 Pulse Ox 98 11/14/21 12:12 Results & Data ([facility]) Laboratory Results Laboratory Results - last 24 hr 11/14/21 11/14/21 11/14/21 06:33 06:33 06:33 WBC 4.45 L RBC 3.78 L Hgb 11.9 L Hct 35.7 L MCV 94.4 MCH 31.5 MCHC 33.3 RDW Std Deviation 44.2 RDW Coeff of Jac 12.9 Plt Count 143 MPV 9.8 PT 12.2 H INR 1.2 H Sodium 137 Potassium 3.7 Chloride 109 H Carbon Dioxide 24 Anion Gap 4 BUN 5 L Creatinine 0.42 L Est Cr Clr Drug Dosing 106.3 Est GFR ( Amer) 116.2 Est GFR (Non-Af Amer) 100.3 BUN/Creatinine Ratio 11.9 Glucose 91 Calcium 7.6 L Total Bilirubin 1.8 H AST 86 H ALT 1497 H Alkaline Phosphatase 112 H Total Protein 4.4 L Albumin 2.6 L Globulin 1.8 L Albumin/Globulin Ratio 1.4 Current Inpatient Medications Current Inpatient Medications: Current Inpatient Medications Potassium Chloride/Sodium Chloride (Normal Saline W/20 Meq Kcl) 20 meq in 1,000 mls @ 80 mls/hr IV .[id number] MUKESH Stop: 12/09/21 09:44 Last Admin: 11/14/21 02:02 Dose: 80 mls/hr Documented by: Thiamine HCl 100 mg/ Syringe 10 mls @ 2 mls/min IV QAM MUKESH Stop: 12/14/21 12:59 Melatonin (Melatonin 3 Mg Tab) 3 mg PO HS MUKESH Stop: 12/09/21 20:59 Last Admin: 11/13/21 20:59 Dose: Not Given Documented by: Mirtazapine (Mirtazapine Tab 15 Mg Tab) 7.5 mg PO DAILY MUKESH Stop: 12/13/21 17:59 Last Admin: 11/14/21 10:26 Dose: 7.5 mg Documented by: Polyethylene Glycol (Polyethylene (Miralax) 17 Gm Pack) 17 gm PO BID MUKESH Stop: 12/10/21 20:59 Last Admin: 11/14/21 10:25 Dose: 17 gm Documented by: Rifaximin (Rifaximin 550 Mg Tablet) 550 mg PO BID@1400,1800 MUKESH Stop: 12/13/21 17:59 Last Admin: 11/13/21 17:40 Dose: 550 mg Documented by:
[2021-11-14 14:17] LABS: Folate (Folic Acid) 16.97 ng/ml (>5.38)
[2021-11-14 14:18] LABS: Vitamin B12 > 1500 pg/ml (180-914)
[2021-11-14] MEDS: THIAMINE HCL 100 MG in SYRINGE 9 ML IV SCH (14:50)
[2021-11-14] MEDS: rifAXIMin 550 MG TABLET PO SCH ×2 (15:52→18:18)
[2021-11-14] MEDS: MELATONIN 3 MG TAB PO SCH (20:36)
[2021-11-15] MEDS: NSS + 20MEQ KCL 20 MEQ/1,000 ML BAG IV SCH (04:31)
[2021-11-15 07:50] LABS: BUN Creatinine Ratio 11.1 (10-20); Calcium 7.7 mg/dl (8.5-10.1); Creatinine Clr Calc Pharmacy 101.1 ml/min; Est GFR (African American) 113.6 ml/min; Potassium 3.9 mmol/L (3.5-5.1)
[2021-11-15 07:52] LABS: Albumin Globulin Ratio 1.5 (0.9-2); Albumin Level 2.8 gm/dl (3.4-5.0); Bilirubin,Total 1.5 mg/dl (0.2-1.0); Globulin 1.9 gm/dl (2.5-4.0); Total Protein 4.7 gm/dl (6.0-8.3)
[2021-11-15 08:06] LABS: Hematocrit (blood only) 37.3 % (37-47); Hemoglobin 12.5 g/dL (12.0-16.0); Mean Corpuscular Hemoglobin 31.6 pg (25-34); Mean Corpuscular Hgb Conc 33.5 g/dL (32-36); Mean Corpuscular Volume 94.4 fL (80-100); Mean Platelet Volume 10.2 fL (7.4-10.4); Platelet Count 147 K/uL (130-400); RDW Coefficient of Variation 12.8 % (11.5-14.5); RDW Standard Deviation 44.5 fL (36.4-46.3); Red Blood Count 3.95 M/uL (4.2-5.4); White Blood Count 6.33 K/uL (4.8-10.8)
--- NOTE | 2021-11-15 08:12 | Hospitalist Progress Note ---
Date of Service November 15, 2021 Assessment & Plan (1) Malnutrition: (2) Liver failure, acute: (3) Tylenol overdose: (4) Cognitive and behavioral changes: (5) Depression with anxiety: Plan: Patient is a 75-year-old female with a history of hyperlipidemia, hypertension, DVT, and depression/anxiety who presented to the ED on 11/08 via ambulance from her home after ingesting an unknown quantity of Pooja[place], Acetaminophen, and Aleve. She presented with encephalopathy and was admitted for workup of encephalopathy and presumed acetaminophen overdose. Refusal to take meds/eat/participate in care delrium/mild cognitive disorder with hx of depression, cannot exclude psychotic features - with agitation off and on. - has been struggling with depressive symptoms for many years. worsening symptoms in last 2 yrs. - Night time wandering around at home. No h/o taking otc sleeping agent or anticholinergics. - has f/h of fronto-temporal dementia. - psych following started on mirtazepine 11/13. B12>1500,, folate wnl - added thiamine - no recent h/o of Alcohol use. quit 2 yrs ago - use to drink one bottle of wine daily. - consider neuro consult in am. Code [place] -Patient became agitated after nursing tried moving her from soiled bed to bathroom. -? possible orthostatic hypotension/deconditioning - but won't be able to get orthostatics and won't participate in therapy. -Check EEG to r/o seizure - per psych Toxic encephalopathy in setting of Polypharm OD - complicated by dementia at baseline Polypharmacy overdose Dementia causing Polypharm OD - ingestion of Tylenol, Aspirin, Pooja[place] (unknown quantity) Tylenol is acetaminophen 650mg, clarification by - Seemingly unintentional, patient has hx of depression/anxiety, but a lso reports declining cognition. - Poison control contacted, NAC protocol - completed - per poison control rec: maintain K+ > 4, Mag > 2 due to pooja seltzer overdose Prolonged QT syndrome, resolved - QT and QTc intervals continue to downtrend - patient was tachycardic to 118 overnight, in sinus rhythm - EKG from 11/11QTc: 412 ms Acute liver failure - 2/2 acetaminophen overdose. - GI consulted. Recommended - transfer to tertiary care. Per tertiary care - Not considered liver transplant candidate - Echo and liver doppler neg. - Autoimmune panel neg, Hep B, Hep C antibody negative for other etiology. - s/p NAC protocol. - transaminitis AST max 6045 --> 60 today. ALT max >2500 --> 1154 today - ammonia 192 -> 54. rifaximin discontinued - coags: INR 3.2 on admit, given IV vit K, latest 1.2 Malnutrition - 2 year history of weight loss and lack of appetite - pt has lost approx 60 lbs since November 2019 - daily standing weights to monitor weight gain - TSH, Free T4 wnl Free T3 low 1.81 - consult nutrition thick fluids diet supplement diet with boost, TID consider HEALTH AND NUTRITION SPECIALIST consult - Discussed with again - 11/13. Lack of PO intake likely from worsening dementia/depression. Follow for remeron response - Hold HEALTH AND NUTRITION SPECIALIST consult at this time. Goals of Care - patient unable to complete ADL's independently at this time, complicated by underlying dementia, delirium, and malnourishment - discussed with . She has 2 years of mental decline difficulty with self care, has refused medical care/medication and has increased impulsiveness, decreased willingness to eat, per occasional episodes of staring into space and hearing voices. thinks he could care for her better if she would take medication and eat regularly, he understands that if patient does not eat eventually she will pass. Patient unlikely to tolerate placement. will think more on home health for additional assistance in her care. - Discussed getting home health on discharge with transition to palliative care. DVT ppx: Heparin 5000 subQ BID FEN/GI: thick fluid diet, boost supplement, Code Status: DNR/DNI Dispo: med/surg tele, improving. discharge uncertain. Admission and Anticipated Discharge Date Admission Date: November 08, 2021 Supervising Physician Co-Signing Physician Notes Resident Physician Supervision Note: I independently interviewed and examined the patient and verified the faust history and physical, reviewed labs and image studies and agree with resident Dr. Baker findings and care plan. Subjective Patient seen at bedside, comfortable does not respond to verbal questioning or shoulder tapping. Does not respond to questions regarding her family. Per nursing patient took her remeron yesterday but refused her 's attempts to feed her rifaxamin. EDIT: [place] called today, patient found incontinent in bed became agitated w hen nursing tried moving her to bathroom. Demanded to call her . Agitated quickly resolved but would reoccur. stated he was on his way. Placed 1 to 1 sitter as needed for patient. Review of Systems Review of Systems: Unobtainable due to mental health condition Physical Exam Constitutional: WD/WN, vitals as above comfortable ENMT: external ear and nose normal, oropharynx normal Neck: trachea midline, no thyromegaly Respiratory: normal respiratory effort, lungs clear to auscultation Cardiovascular: RRR, no murmur, no edema Chest (Breasts): Chest: normal inspection of chest Gastrointestinal (Abdomen): normal bowel sounds, soft, nontender, no hepatosplenomegaly Skin: no rashes, warm and dry Results & Data Results & Data ([facility]) Vital Signs (Past 12 Hours) Vital Signs Temp Pulse Pulse Resp BP BP Pulse Ox 11/15/21 07:11 36.6 C 62 16 148/80 H 97 11/15/21 07:00 67 11/15/21 03:48 36.7 C 81 19 146/82 H 95 11/14/21 23:02 36.6 C 78 18 137/79 98 11/14/21 22:18 72 11/14/21 19:19 36.6 C 93 H 20 132/78 97 Resident Activity Tracking Resident Involvement: Resident Care Provided Care Provided: Adult Hospital Medicine
[2021-11-15] MEDS: THIAMINE HCL 100 MG in SYRINGE 9 ML IV SCH (10:22)
[2021-11-15] MEDS: MIRTAZAPINE TAB 15 MG TAB PO SCH ×3 (11:20→17:22)
[2021-11-15] MEDS: POLYETHYLENE (MIRALAX) 17 GM PACK PO SCH ×3 (11:20→21:23)
--- NOTE | 2021-11-15 14:20 | Psychiatric Progress Note ---
Date of Service November 15, 2021 Impression / Recommendations Impression delrium/mild cognitive disorder with hx of depression, cannot exclude psychotic features. 11/15/21: minimal to no change, b12 and folate noted, vit D low (1) Depression with anxiety: (2) Tylenol overdose: (3) Cognitive and behavioral changes: shift Remeron to evening given reports of staring spells, unpredictable mental status with period of hypoactivity would consider EEG to rule out seizure Drs. Baker and Bran updated Risk Factors Assessment Do You Have Access To A Gun?: No Previous Attempt: No Previous Psychiatric Hospitalization: No Hopelessness: No Protective Factors Assessment : Yes Stable Relationships: Yes Supportive Family: Yes Interval History Identifying Information 75 yo woman with history of depression,anxiety, cognitive impairment, HTN, HLD admitted medically after unintentional overdose of acetaminophen, aspirin and tami-seltzer. Psychiatry was consulted for recommendations for anxiety and weight loss. Chief Complaint ongoing AMS Review of Systems Notes patient is unable to complete Subjective Subjective Patient was seen & assessed and interval progress reviewed with nursing and hospitalist service. Patient remains quite sedated this am, dose of Remeron was shifted earlier so family could assist in administration if needed. Brief code [place] later in am as had attempted to get out of bed and was difficult to redirect. Likely presyncopal per Dr. Sotomayor; patient unlikely to tolerate orthostatics. She was not combative. reports family hx of frontotemporal dementia. Physical Exam Psychiatric limited by sedation/cooperation. No abnormal motor movements were noted. Vital Signs (Past 24 Hours) Last Vital Signs Temp 36.6 C 11/15/21 07:11 Pulse 62 11/15/21 07:11 Resp 16 11/15/21 07:11 BP 148/80 H 11/15/21 07:11 Pulse Ox 97 11/15/21 07:11 Results & Data ([facility]) Laboratory Results Laboratory Results - last 24 hr 11/14/21 11/14/21 11/15/21 06:33 13:02 06:59 WBC 6.33 RBC 3.95 L Hgb 12.5 Hct 37.3 MCV 94.4 MCH 31.6 MCHC 33.5 RDW Std Deviation 44.5 RDW Coeff of Jac 12.8 Plt Count 147 MPV 10.2 Sodium Potassium Chloride Carbon Dioxide Anion Gap BUN Creatinine Est Cr Clr Drug Dosing Est GFR ( Amer) Est GFR (Non-Af Amer) BUN/Creatinine Ratio Glucose Calcium Magnesium 1.5 L Total Bilirubin AST ALT Alkaline Phosphatase Total Protein Albumin Globulin Albumin/Globulin Ratio Vitamin B12 > 1500 H 25-OH Vitamin D Total 27.0 L Folate 16.97 11/15/21 06:59 WBC RBC Hgb Hct MCV MCH MCHC RDW Std Deviation RDW Coeff of Jac Plt Count MPV Sodium 138 Potassium 3.9 Chloride 107 Carbon Dioxide 27 Anion Gap 4 BUN 5 L Creatinine 0.45 L Est Cr Clr Drug Dosing 101.1 Est GFR ( Amer) 113.6 Est GFR (Non-Af Amer) 98.0 BUN/Creatinine Ratio 11.1 Glucose 96 Calcium 7.7 L Magnesium Total Bilirubin 1.5 H AST 60 H ALT 1154 H Alkaline Phosphatase 113 H Total Protein 4.7 L Albumin 2.8 L Globulin 1.9 L Albumin/Globulin Ratio 1.5 Vitamin B12 25-OH Vitamin D Total Folate Current Inpatient Medications Current Inpatient Medications: Current Inpatient Medications Heparin Sodium (Porcine) (Heparin Sod 5,000 Unit/0.5 Ml Vial) 5,000 units SQ Q12 MUKESH Stop: 12/15/21 20:59 Potassium Chloride/Sodium Chloride (Normal Saline W/20 Meq Kcl) 20 meq in 1,000 mls @ 80 mls/hr IV .[id number] MUKESH Stop: 12/09/21 09:44 Last Infusion: 11/15/21 11:25 Dose: 0 mls/hr Documented by: Thiamine HCl 100 mg/ Syringe 10 mls @ 2 mls/min IV QAM MUKESH Stop: 12/14/21 12:59 Last Admin: 11/15/21 10:22 Dose: 2 mls/min Documented by: Melatonin (Melatonin 3 Mg Tab) 3 mg PO HS MUKESH Stop: 12/09/21 20:59 Last Admin: 11/14/21 20:36 Dose: 3 mg Documented by: Mirtazapine (Mirtazapine Tab 15 Mg Tab) 7.5 mg PO QD@1800 MUKESH Stop: 12/15/21 17:59 Polyethylene Glycol (Polyethylene (Miralax) 17 Gm Pack) 17 gm PO BID MUKESH Stop: 12/10/21 20:59 Last Admin: 11/14/21 20:36 Dose: 17 gm Documented by:
[2021-11-15] MEDS ORDERED: HALOPERIDOL LACTATE 5 MG/ML 1 ML VIAL IV STA ×2 (15:38→15:43)
[2021-11-15] MEDS ORDERED: OLANZapine 10 MG/2.1 ML SDV IM PRN (17:10)
[2021-11-15] MEDS ORDERED: OLANZAPINE 2.5 MG TAB PO PRN (17:18)
[2021-11-15] MEDS ORDERED: OLANZapine 5 MG TABLET PO PRN (18:00)
[2021-11-15] MEDS ORDERED: OLANZapine ZYDIS 5 MG ORALLY DIS. TAB PO PRN (18:45)
[2021-11-15] MEDS: HEPARIN SOD 5,000 UNIT/0.5 ML VIAL SQ SCH (21:23)
[2021-11-15] MEDS: MELATONIN 3 MG TAB PO SCH (22:22)
[2021-11-16 07:42] LABS: Hematocrit (blood only) 36.1 % (37-47); Hemoglobin 11.8 g/dL (12.0-16.0); Mean Corpuscular Hemoglobin 31.1 pg (25-34); Mean Corpuscular Hgb Conc 32.7 g/dL (32-36); Mean Platelet Volume 9.9 fL (7.4-10.4); Platelet Count 174 K/uL (130-400); RDW Coefficient of Variation 13.1 % (11.5-14.5); RDW Standard Deviation 44.5 fL (36.4-46.3); White Blood Count 4.95 K/uL (4.8-10.8)
[2021-11-16 07:50] LABS: INR 1.2 (0.9-1.1); Prothrombin Time 12.4 Seconds (9.0-12.0)
[2021-11-16 08:15] LABS: BUN Creatinine Ratio 17.1 (10-20); Calcium 7.6 mg/dl (8.5-10.1); Creatinine Clr Calc Pharmacy 124.1 ml/min; Est GFR (African American) 123.4 ml/min; Est GFR (Non-African American) 106.5 ml/min; Potassium 3.6 mmol/L (3.5-5.1)
[2021-11-16 08:16] LABS: Albumin Globulin Ratio 1.5 (0.9-2); Albumin Level 2.9 gm/dl (3.4-5.0); Bilirubin,Total 1.6 mg/dl (0.2-1.0); Globulin 1.9 gm/dl (2.5-4.0); Total Protein 4.8 gm/dl (6.0-8.3)
--- NOTE | 2021-11-16 09:36 | Neurology Consultation ---
Date of Consultation November 16, 2021 Assessment & Plan (1) Encephalopathy: (2) Cognitive and behavioral changes: I believe this patient had an acute encephalopathy, likely secondary to hepatic failure from acetaminophen overdose. this is improving. Patient is fairly calm today and I suspect an underlying dementia. Although the patient does share some features of a behavioral variant frontotemporal dementia ( apathy and decreased empathy, disinhibition and some personality changes / bizarre behavior ) she does not have any hyperorality that is usually associated with the condition. In fact, she is displaying a significant lack of appetite and weight loss. There may be some compulsive behaviors. She has some alteration of memory and judgment and is socially inappropriate. The Aging dementia or senile dementia of the Alzheimer's type is possible as well. I note the family history of supposed frontotemporal dementia in her brother. The patient has a longstanding history of anxiety and depression. I cannot entirely exclude early psychosis. With patient has an essentially unremarkable neurologic examination with no focal findings or meningeal signs. Recommendations: 1. routine EEG could be ordered, but I doubt the patient has a seizure disorder. 2. MRI of the brain could be obtained to evaluate for classic atrophy patterns associated with frontotemporal dementia, but I am not certain the patient would tolerate or hold still for this procedure. also, the MRI is not diagnostic but only suggestive of the condition. 3. if she had a behavioral variant of frontotemporal dementia, a trial of sertraline in the evening may be beneficial. 4. If she does have a behavioral variant of frontotemporal dementia, benzodiazepine should be avoided. 5. Memantine may be reasonable to start at 10 mg once in the evening for 1 month then 10 mg twice a day. 6. Otherwise there is nothing specific I can do for her, other than treat symptoms. Overall, I spent a total of 75 minutes with this case including review of records, direct evaluation the patient bedside, and discussion of the case with the patient and , including differential diagnosis and treatment option. History of Present Illness Reason for Consultation: Patient is a 75-year-old who I was asked to see at request Dr. Baker, for neurologic consultation regarding memory and behavior issues Requesting Physician: Dr. Baker Attending Physician: Jerrell Nguyen DO History of Present Illness patient has a history of hypertension and dyslipidemia. She also has a longstanding history of anxiety and depression. Has insomnia as. She was on alprazolam 0.5 mg b.i.d. as needed buspirone 7.5 mg 3 times a day trazodone 100 mg in the evening, and eszopiclone 1 mg at bedtime as needed. Her mood has been described as getting worse over the last 2 years. She is starting to have some hallucinations, agitation, mood swings wandering, and lack of appetite leading to 60 lb weight loss over the last 2 years. is having difficult time caring her. The patient was a former alcoholic drinking up to a bottle of wine per day or "hard stuff", apparently quitting 2 years. She was admitted November 08 with acute encephalopathy, likely secondary to hepatic failure from yeyf-cmy-pczlqmw med overdose ( mostly Tylenol). Her acute liver failure is improving since admission. Laboratory studies her largely unremarkable although currently calcium still low at 7.6. AST and ALT. CBC, Chem profile, SHANIQUE, B12, TSH were all unremarkable. Patient has had episodes of agitation, hitting, biting, and also periods where she will close her eyes and not follow commands shutting out people around her. There was some history that the patient may have been having some staring spells. No one has witnessed actual tonic-clonic seizure activity. The patient has seen Psychiatry who recommended mirtazapine in the evening. She is off all her other mood medication. Apparently, there is a history of frontotemporal dementia in her family. Patient tells me that her 67-year-old brother of "frontal dementia". She tells me that her mother age 75 of "old age" and her father age 80 of congestive heart failure. Allergies Allergy/AdvReac Type Severity Reaction Status Date / Time Fish Containing Products Allergy Intermediate FACIAL Verified 11/08/21 19:40 SWELLING - ANCHOVIES naproxen Allergy Intermediate HIVES AND Verified 11/08/21 19:40 FACIAL SWELLING estrogens, conjugated AdvReac Unknown DVT Verified 11/08/21 19:40 Home Medications Medication Instructions Recorded Confirmed Type acetaminophen 325 mg capsule 650 mg PO QID PRN 11/08/21 11/08/21 History (Tylenol) aspirin-sod bicarb-citric acid 325 2 tab PO UD PRN 11/08/21 11/08/21 History mg-1,916 mg-1,000 mg efferves tab (Pooja-Elizabeth Original) ibuprofen 200 mg tablet (Advil) 400 mg PO Q6H PRN 11/08/21 11/08/21 History Patient History Medical History Facial laceration History of DVT in adulthood Mild concussion Vertigo Surgical History No significant past surgical history Family History Father Heart failure Brother Aortic aneurysm Denies family history of Ovarian cancer Prostate cancer Myocardial infarction Breast cancer Colorectal cancer Social History Smoking Status: Never smoker Second Hand Exposure: No; Hx Alcohol Use: No Hx Substance Use: No Preferred Language: Panamanian Communication Ability: Impaired Visual Impairment: No Limitations Hearing Ability: Normal Wrecker Driver Required: No Beliefs That Will Affect Care: None marital status: Current Living Situation: Spouse Current Living Situation Comment: with current occupational status: retired Other Information That Helps Us Care for You: No Feels Safe at Home: Yes Childhood Exposure to Second-Hand Smoke: No Diet Comment: no specifis diet Dental Care, Regularly: Yes Physical Activity Frequency: Daily Physical Activity Frequency Comment: walking Seatbelt Use: always Do you think of yourself as: straight/heterosexual Assistive Devices: None Review of Systems Constitutional: no fever, no fatigue and no weakness Eyes: no diplopia, no eye pain and no worsening vision Ear, Nose, Mouth, Throat: no ear pain, no tinnitus, no hearing loss, no dizziness, no snoring, no hoarseness and no dysphagia Respiratory: no cough and no dyspnea Cardiovascular: no chest pain, no palpitations and no lightheadedness Gastrointestinal: no abdominal pain, no nausea and no vomiting Genitourinary: no dysuria, no urinary frequency and no urinary incontinence Musculoskeletal: no back pain, no neck pain, no radicular pain, no joint pain and no myalgia Integumentary: no rash and no lesions Neurologic: no gait abnormality, no localized weakness, no generalized weakness, no tingling, no numbness, no tremor(s), no abnormal movements, no headache(s), no abnormal speech, no confusion and no memory loss Psychiatric: no depression, no irritability, no anxiety, no difficulty concentrating, no confusion and no hallucinations Endocrine: no fatigue and no flushing Hematologic / Lymphatic: no easy bleeding and no easy bruising Allergy / Immunological: no urticaria and no problem reported Exam (Neuro) Physical Exam: The patient is right-handed. The patient is awake, alert, and attentive. Speech is normal without any aphasia or dysarthria. The patient can name objects, repeat phrases, and has No significant spontaneous speech. she will only talk if she wants to, when asked a question and tends to give short answers only. Mood seems reasonable today although she did have a flash of anger towards the nurse when talking about her food tray, and her affect is very flat. General appearance and grooming are normal. Patient has some intact long-term memory. She knew her name, where she was, the President, and the month. She could not state the date, her age, or what day of the week it was. She could name objects and colors and knew left from right. Pupils are 4 mm bilaterally and reactive to light. Extraocular eye muscles are intact without nystagmus. Visual acuity and visual self seem normal grossly to confrontation. There are no deficits to sensation in the face in all 3 distributions of the fifth cranial nerve bilaterally. Corneal reflexes are positive bilaterally. Fac ial strength and symmetry was normal bilaterally. Hearing seems normal bilaterally. Palate moves well without asymmetry. There is normal sternocleidomastoid and trapezius (shoulder shrug) strength bilaterally. Tongue is midline with good strength bilaterally. Neck has a full range of motion without discomfort. There are no cervical bruits bilaterally. There are no cranial or ocular bruits. Heart is without murmur. There is a regular rhythm and rate. Cervical, thoracic, and lumbar spine are nontender to palpation. Gait was not tested but stance sitting up in bed was reasonable. With outstretched arms there is no drift. There are no resting, postural, or action tremors. There is no ataxia with finger to nose testing. There is good facility in the hands. No other abnormal involuntary movements are noted. Motor strength is 5/5 diffusely in the arms bilaterally including deltoids, biceps, triceps, brachioradialis, wrist flexors and extensors, cook syrup maker, and intrinsic hand muscles. Motor strength is 5/5 diffusely in the legs bilaterally including hip flexors, quadriceps, hamstrings, gastrocnemius, tibialis anterior, tibialis posterior, and Peroneii muscles. Toe extensors are normal and there is good bulk in the extensor digitorum brevis muscles bilaterally. The limbs have good tone without rigidity or spasticity. There is no atrophy noted in the muscles. Muscle bulk is normal, there is no tenderness to palpation, no myotonia to percussion, and no fasciculations seen. Sensory examination is intact to touch throughout all 4 limbs diffusely. Reflexes are 2/4 in the biceps, triceps, brachioradialis, quadriceps, and Achilles tendons bilaterally. There is no clonus bilaterally. Toes are downgoing with plantar stimulation bilaterally. Peripheral pulses are present and of normal quality distally in all 4 limbs. There is no peripheral edema noted in the limbs. Results & Data ([facility]) Vital Signs (Past 12 Hours) Vital Signs Temp Pulse Resp BP Pulse Ox 11/16/21 07:00 36.3 C L 97 H 20 146/80 H 96 11/16/21 04:29 36.7 C 97 H 18 118/67 96 PG Care Time/CCT Total # of Minutes Spent Total Time Spent with Patient: Total time spent is greater than 50% in coordination of care (as documented) at patient's floor/unit and/or counseling patient: Coding Level of Care Code 29342 Initial Inpt Care Lvl 3 Diagnoses Encephalopathy G93.40 Cognitive and behavioral changes R41.89; R46.89 Time Spent (min) 75
[2021-11-16] MEDS: HEPARIN SOD 5,000 UNIT/0.5 ML VIAL SQ SCH ×2 (10:00→20:56)
--- NOTE | 2021-11-16 11:14 | Communication Note ---
Date of Service: November 16, 2021 Discussed this patient earlier this morning with Dr. Nguyen and based on our conversation; palliative medicine will hold off on official consultation until further notice to determine if further consult is necessary. Official consult will follow if deemed necessary. Thanks for involving Palliative with this patient. No billing code to be entered for this patient.
[2021-11-16] MEDS: THIAMINE HCL 100 MG in SYRINGE 9 ML IV SCH (12:16)
[2021-11-16] MEDS: POLYETHYLENE (MIRALAX) 17 GM PACK PO SCH ×2 (12:17→20:56)
--- NOTE | 2021-11-16 14:15 | Electroencephalogram ---
EEG Procedure Note Date of Service November 16, 2021 Start / End Times Start Time: 1026 End Time: 1046 Referring Physician Valeria Baker DO History 75-year-old with history of seizure-like activity Home Medication List Medication Instructions Recorded Confirmed Type acetaminophen 325 mg capsule 650 mg PO QID PRN 11/08/21 11/08/21 History (Tylenol) aspirin-sod bicarb-citric acid 325 2 tab PO UD PRN 11/08/21 11/08/21 History mg-1,916 mg-1,000 mg efferves tab (Pooja-Norton Original) ibuprofen 200 mg tablet (Advil) 400 mg PO Q6H PRN 11/08/21 11/08/21 History Inpatient Medication List Heparin Sodium (Porcine) (Heparin Sod 5,000 Unit/0.5 Ml Vial) 5,000 units SQ Q12 MUKESH Stop: 12/15/21 20:59 Last Admin: 11/16/21 10:00 Dose: 5,000 units Documented by: [id number] Admin: 11/15/21 21:23 Dose: Not Given Documented by: [id number] Thiamine HCl 100 mg/ Syringe 10 mls @ 2 mls/min IV QAM MUKESH Stop: 12/14/21 12:59 Last Admin: 11/16/21 12:16 Dose: 2 mls/min Documented by: [id number] Admin: 11/15/21 10:22 Dose: 2 mls/min Documented by: [id number] Admin: 11/14/21 14:50 Dose: 2 mls/min Documented by: [id number] Melatonin (Melatonin 3 Mg Tab) 3 mg PO HS MUKESH Stop: 12/09/21 20:59 Last Admin: 11/15/21 22:22 Dose: 3 mg Documented by: [id number] Admin: 11/14/21 20:36 Dose: 3 mg Documented by: [id number] Admin: 11/13/21 20:59 Dose: Not Given Documented by: [id number] Admin: 11/12/21 22:50 Dose: Not Given Documented by: [id number] Admin: 11/11/21 20:27 Dose: Not Given Documented by: [id number] Admin: 11/10/21 20:53 Dose: Not Given Documented by: [id number] Admin: 11/09/21 22:09 Dose: Not Given Documented by: [id number] Mirtazapine (Mirtazapine Tab 15 Mg Tab) 7.5 mg PO QD@1800 MUKESH Stop: 12/15/21 17:59 Last Admin: 11/15/21 17:22 Dose: Not Given Documented by: [id number] Polyethylene Glycol (Polyethylene (Miralax) 17 Gm Pack) 17 gm PO BID MUKESH Stop: 12/10/21 20:59 Last Admin: 11/16/21 12:17 Dose: 17 gm Documented by: [id number] Admin: 11/15/21 21:23 Dose: Not Given Documented by: [id number] Admin: 11/15/21 11:25 Dose: Not Given Documented by: [id number] Admin: 11/14/21 20:36 Dose: 17 gm Documented by: [id number] Admin: 11/14/21 10:25 Dose: 17 gm Documented by: [id number] Admin: 11/13/21 20:59 Dose: Not Given Documented by: [id number] Admin: 11/13/21 13:23 Dose: Not Given Documented by: [id number] Admin: 11/12/21 22:51 Dose: Not Given Documented by: [id number] Admin: 11/12/21 08:56 Dose: Not Given Documented by: [id number] Admin: 11/11/21 20:27 Dose: 17 gm Documented by: [id number] Admin: 11/11/21 09:30 Dose: Not Given Documented by: [id number] Admin: 11/10/21 20:51 Dose: Not Given Documented by: [id number] Discontinued Medications Haloperidol Lactate (Haloperidol Lactate 5 Mg/Ml 1 Ml Vial) 2 mg IV NOW STA Stop: 11/15/21 15:44 Last Admin: 11/15/21 15:52 Dose: 2 mg Documented by: [id number] Sodium Chloride (Nss) 500 mls @ 999 mls/hr IV .Q31M MUKESH Stop: 11/08/21 19:15 Last Infusion: 11/08/21 22:28 Dose: 0 mls/hr Documented by: [id number] Admin: 11/08/21 19:11 Dose: 999 mls/hr Documented by: [id number] Acetylcysteine 7,550 mg/ (Dextrose) 237.75 mls @ 200 mls/hr IV ONCE ONE; Protocol Stop: 11/08/21 20:50 Last Infusion: 11/08/21 22:12 Dose: 0 mls/hr Documented by: [id number] Admin: 11/08/21 20:32 Dose: 200 mls/hr Documented by: [id number] Acetylcysteine 2,520 mg/ (Dextrose) 512.6 mls @ 125 mls/hr IV ONCE ONE; Protocol Stop: 11/08/21 23:45 Last Infusion: 11/09/21 03:48 Dose: 0 mls/hr Documented by: [id number] Admin: 11/08/21 21:49 Dose: 125 mls/hr Documented by: [id number] Acetylcysteine 5,030 mg/ (Dextrose) 1,025.15 mls @ 62.5 mls/hr IV ONCE ONE; Protocol Stop: 11/09/21 12:03 Last Infusion: 11/09/21 16:43 Dose: 0 mls/hr Documented by: [id number] Infusion: 11/09/21 16:42 Dose: 0 mls/hr Documented by: [id number] Infusion: 11/09/21 16:41 Dose: 0 mls/hr Documented by: [id number] Admin: 11/09/21 03:46 Dose: 62.5 mls/hr Documented by: [id number] Magnesium Sulfate/Dextrose (Magnesium Sulfate / D5w) 1 gm in 100 mls @ 200 mls/hr IV Q30M MUKESH Stop: 11/08/21 21:29 Last Infusion: 11/09/21 01:49 Dose: 0 mls/hr Documented by: [id number] Admin: 11/09/21 00:55 Dose: 200 mls/hr Documented by: [id number] Infusion: 11/09/21 00:20 Dose: 200 mls/hr Documented by: [id number] Admin: 11/08/21 23:50 Dose: 200 mls/hr Documented by: [id number] Sodium Chloride (Nss) 500 mls @ 999 mls/hr IV .Q31M ONE Stop: 11/08/21 20:54 Last Infusion: 11/08/21 22:27 Dose: 0 mls/hr Documented by: [id number] Admin: 11/08/21 21:27 Dose: 999 mls/hr Documented by: [id number] Lactated Ringer's (Lr) 1,000 mls @ 80 mls/hr IV .[id number] MUKESH Stop: 12/08/21 21:29 Last Infusion: 11/09/21 11:08 Dose: 0 mls/hr Documented by: [id number] Infusion: 11/09/21 10:28 Dose: 0 mls/hr Documented by: [id number] Admin: 11/09/21 00:00 Dose: 80 mls/hr Documented by: [id number] Potassium Chloride (K Indra / Wtr) 10 meq in 100 mls @ 100 mls/hr IV Q1H MUKESH; Protocol Stop: 11/09/21 13:29 Last Infusion: 11/09/21 16:38 Dose: 0 mls/hr Documented by: [id number] Admin: 11/09/21 13:31 Dose: 100 mls/hr Documented by: [id number] Infusion: 11/09/21 13:07 Dose: 100 mls/hr Documented by: [id number] Admin: 11/09/21 12:07 Dose: 100 mls/hr Documented by: [id number] Infusion: 11/09/21 11:45 Dose: 100 mls/hr Documented by: [id number] Admin: 11/09/21 10:45 Dose: 100 mls/hr Documented by: [id number] Infusion: 11/09/21 10:31 Dose: 100 mls/hr Documented by: [id number] Admin: 11/09/21 09:31 Dose: 100 mls/hr Documented by: [id number] Potassium Chloride/Sodium Chloride (Normal Saline W/20 Meq Kcl) 20 meq in 1,000 mls @ 80 mls/hr IV .[id number] MUKESH Stop: 12/09/21 09:44 Last Infusion: 11/15/21 15:41 Dose: 0 mls/hr Documented by: [id number] Infusion: 11/15/21 11:25 Dose: 0 mls/hr Documented by: [id number] Admin: 11/15/21 04:31 Dose: 80 mls/hr Documented by: [id number] Infusion: 11/15/21 04:31 Dose: 0 mls/hr Documented by: [id number] Admin: 11/14/21 14:52 Dose: 80 mls/hr Documented by: [id number] Infusion: 11/14/21 14:32 Dose: 80 mls/hr Documented by: [id number] Admin: 11/14/21 02:02 Dose: 80 mls/hr Documented by: [id number] Infusion: 11/14/21 02:01 Dose: 0 mls/hr Documented by: [id number] Admin: 11/13/21 13:27 Dose: 80 mls/hr Documented by: [id number] Infusion: 11/13/21 13:23 Dose: 80 mls/hr Documented by: [id number] Admin: 11/13/21 00:53 Dose: 80 mls/hr Documented by: [id number] Infusion: 11/13/21 00:47 Dose: 80 mls/hr Documented by: [id number] Infusion: 11/12/21 23:16 Dose: 80 mls/hr Documented by: [id number] Infusion: 11/12/21 22:51 Dose: 0 mls/hr Documented by: [id number] Admin: 11/12/21 11:52 Dose: 80 mls/hr Documented by: [id number] Infusion: 11/12/21 11:52 Dose: 80 mls/hr Documented by: [id number] Admin: 11/12/21 00:14 Dose: 80 mls/hr Documented by: [id number] Infusion: 11/12/21 00:04 Dose: 80 mls/hr Documented by: [id number] Admin: 11/11/21 11:34 Dose: 80 mls/hr Documented by: [id number] Infusion: 11/11/21 11:34 Dose: 80 mls/hr Documented by: [id number] Admin: 11/11/21 00:54 Dose: 80 mls/hr Documented by: [id number] Infusion: 11/11/21 00:45 Dose: 80 mls/hr Documented by: [id number] Admin: 11/10/21 12:15 Dose: 80 mls/hr Documented by: [id number] Infusion: 11/10/21 10:39 Dose: 80 mls/hr Documented by: [id number] Admin: 11/09/21 22:09 Dose: 80 mls/hr Documented by: [id number] Infusion: 11/09/21 22:09 Dose: 0 mls/hr Documented by: [id number] Admin: 11/09/21 11:06 Dose: 80 mls/hr Documented by: [id number] Thiamine HCl 100 mg/ Syringe 10 mls @ 2 mls/min IV NOW STA Stop: 11/09/21 10:06 Last Admin: 11/09/21 10:32 Dose: 2 mls/min Documented by: [id number] Acetylcysteine 7,320 mg/ (Dextrose) 236.6 mls @ 200 mls/hr IV ONCE ONE Stop: 11/09/21 18:30 Last Infusion: 11/09/21 19:00 Dose: 0 mls/hr Documented by: [id number] Admin: 11/09/21 17:44 Dose: 200 mls/hr Documented by: [id number] Acetylcysteine 2,440 mg/ (Dextrose) 512.2 mls @ 125 mls/hr IV ONCE ONE Stop: 11/09/21 22:25 Last Infusion: 11/10/21 00:00 Dose: 0 mls/hr Documented by: [id number] Admin: 11/09/21 19:30 Dose: 125 mls/hr Documented by: [id number] Acetylcysteine 4,880 mg/ (Dextrose) 1,024.4 mls @ 62.5 mls/hr IV ONCE ONE Stop: 11/10/21 14:43 Last Infusion: 11/10/21 15:05 Dose: 0 mls/hr Documented by: [id number] Infusion: 11/10/21 15:04 Dose: 0 mls/hr Documented by: [id number] Admin: 11/10/21 01:35 Dose: 62.5 mls/hr Documented by: [id number] Acetylcysteine 5,630 mg/ (Dextrose) 1,028.15 mls @ 62.5 mls/hr IV .[id number] MUKESH Stop: 11/13/21 14:59 Last Infusion: 11/13/21 10:10 Dose: 0 mls/hr Documented by: [id number] Admin: 11/13/21 08:23 Dose: Not Given Documented by: [id number] Admin: 11/12/21 16:38 Dose: 62.5 mls/hr Documented by: [id number] Infusion: 11/12/21 16:38 Dose: 62.5 mls/hr Documented by: [id number] Admin: 11/12/21 00:13 Dose: 62.5 mls/hr Documented by: [id number] Infusion: 11/12/21 00:13 Dose: 62.5 mls/hr Documented by: [id number] Admin: 11/11/21 07:57 Dose: 62.5 mls/hr Documented by: [id number] Infusion: 11/11/21 07:50 Dose: 62.5 mls/hr Documented by: [id number] Admin: 11/10/21 15:22 Dose: 62.5 mls/hr Documented by: [id number] Phytonadione 10 mg/ Dextrose 51 mls @ 102 mls/hr IV ONE ONE Stop: 11/10/21 16:44 Last Infusion: 11/10/21 18:10 Dose: 0 mls/hr Documented by: [id number] Admin: 11/10/21 17:24 Dose: 102 mls/hr Documented by: [id number] Phytonadione 10 mg/ Dextrose 51 mls @ 102 mls/hr IV 1800 ONE Stop: 11/11/21 18:29 Last Infusion: 11/11/21 18:45 Dose: 0 mls/hr Documented by: [id number] Admin: 11/11/21 18:18 Dose: 102 mls/hr Documented by: [id number] Lorazepam (Lorazepam 2 Mg/1 Ml Vial) 1 mg IV NOW STA Stop: 11/08/21 22:13 Last Admin: 11/08/21 22:22 Dose: 1 mg Documented by: [id number] Mirtazapine (Mirtazapine Tab 15 Mg Tab) 7.5 mg PO HS MUKESH Stop: 12/12/21 20:59 Last Admin: 11/12/21 22:50 Dose: Not Given Documented by: [id number] Mirtazapine (Mirtazapine Tab 15 Mg Tab) 7.5 mg PO DAILY MUKESH Stop: 12/13/21 17:59 Last Admin: 11/15/21 11:25 Dose: Not Given Documented by: [id number] Admin: 11/14/21 10:26 Dose: 7.5 mg Documented by: [id number] Admin: 11/13/21 17:39 Dose: 7.5 mg Documented by: [id number] Miscellaneous (Acetylcysteine~Stop Order) 1 ea N/A ONE ONE Stop: 11/12/21 15:00 Last Admin: 11/13/21 09:30 Dose: 1 ea Documented by: [id number] Potassium Chloride (Potassium Chloride Crtab 20 Meq Tabcr) 40 meq PO NOW STA Stop: 11/08/21 20:59 Last Admin: 11/08/21 21:24 Dose: 40 meq Documented by: [id number] Potassium Chloride (Potassium Chloride Crtab 20 Meq Tabcr) 40 meq PO NOW STA Stop: 11/10/21 02:07 Last Admin: 11/10/21 02:40 Dose: 40 meq Documented by: [id number] Rifaximin (Rifaximin 550 Mg Tablet) 550 mg PO BID [facility] Stop: 12/10/21 20:59 Last Admin: 11/13/21 15:07 Dose: 550 mg Documented by: [id number] Admin: 11/12/21 22:51 Dose: Not Given Documented by: [id number] Admin: 11/12/21 08:56 Dose: Not Given Documented by: [id number] Admin: 11/11/21 20:27 Dose: Not Given Documented by: [id number] Admin: 11/11/21 09:30 Dose: Not Given Documented by: [id number] Admin: 11/10/21 20:53 Dose: Not Given Documented by: [id number] Rifaximin (Rifaximin 550 Mg Tablet) 550 mg PO BID@1400,1800 [facility] Stop: 12/13/21 17:59 Last Admin: 11/14/21 18:18 Dose: Not Given Documented by: [id number] Admin: 11/14/21 15:52 Dose: 550 mg Documented by: [id number] Admin: 11/13/21 17:40 Dose: 550 mg Documented by: [id number] Description This is a 21 electrode EEG with a single channel dedicated to limited EKG. The electrodes were placed in accordance with the International 10-20 system. Interpretation The predominant background activity consists of a somewhat irregular 9 Hz activity, of up to 60 mV in amplitude,seen symmetrically distributed over the posterior head regions bilaterally. This activity attenuates nicely with eye- opening and other alerting procedures. Photic stimulation was performed and elicited no change in the background activity and no abnormal responses were seen. Hyperventilation was not performed. A minimal amount of muscle and movement artifact activity contaminated the recording and did not hinder interpretation to any significant degree. Throughout the waking portion of the recording, no focal abnormalities, abnormal slow activity, or potentially epileptogenic discharges are seen. The patient entered the drowsy state and brief periods of stage II sleep with no further activation. In summary, this EEG was normal during wakefulness and sleep. No focal abnormalities, potentially epileptogenic discharges, or abnormal slow activity was seen. Clinical Correlation The abscence of potentially epileptogenic activity does not exclude a seizure disorder, since interictally, EEGs can be normal. Clinical correlation is required. [facility] Procedure Codes Indication for Procedure (1) Seizure-like activity: Neurology Neurology: 06914 EEG include record awake & sleepy
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
--- NOTE | 2021-11-16 16:51 | Hospitalist Progress Note ---
Date of Service November 16, 2021 Assessment & Plan (1) Malnutrition: (2) Liver failure, acute: (3) Tylenol overdose: (4) Cognitive and behavioral changes: (5) Depression with anxiety: Plan: Patient is a 75-year-old female with a history of hyperlipidemia, hypertension, DVT, and depression/anxiety who presented to the ED on 11/08 via ambulance from her home after ingesting an unknown quantity of Pooja[place], Acetaminophen, and Aleve. She presented with encephalopathy and was admitted for workup of encephalopathy and presumed acetaminophen overdose. Refusal to take meds/eat/participate in care delrium/mild cognitive disorder with hx of depression, cannot exclude psychotic features - with agitation off and on. - probably mixed picture - easily can have some alzheimer's type, has some features of frontotemporal, and prior EtOH abuse could easily be contributing as well - continue thiamine. - see above discussions w - for now cautious trial of seroquel - dispo "up in the air" for now -- would like to bring her home, but also seems to be understanding his limitations in being able to handle her situation overall; looking at support for home vs facility that does dementia care Toxic encephalopathy in setting of Polypharm OD - complicated by dementia at baseline - seems to have improved Polypharmacy overdose Dementia causing Polypharm OD - ingestion of Tylenol, Aspirin, Pooja[place] (unknown quantity) - fortunantely while liver insulted, numbers are more reassuring now Prolonged QT syndrome, resolved - most recent 412 - follow w initiation of seroquel Acute liver failure - 2/2 acetaminophen overdose. - GI consulted. Recommended - transfer to tertiary care. Per tertiary care - Not considered liver transplant candidate - Echo and liver doppler neg. - Autoimmune panel neg, Hep B, Hep C antibody negative for other etiology. - s/p NAC protocol. - transaminitis improved, INR improved on vitamin K - overall reassuring Malnutrition - 2 year history of weight loss and lack of appetite - pt has lost approx 60 lbs since November 2019 - daily standing weights to monitor weight gain - TSH, Free T4 wnl Free T3 low 1.81 - likely overall from worsening dementia. - nutrition support Goals of Care - see discussions w above DVT ppx: Heparin 5000 subQ BID FEN/GI: thick fluid diet, boost supplement, Code Status: DNR/DNI Dispo: up in the air - home w extra support vs facility Admission and Anticipated Discharge Date Admission Date: November 08, 2021 Subjective no acute complaints. calm today. CHIEF CONSTRUCTION INSPECTOR at bedside notes no acute issues. came later - discussed with him - working off of extended discussion by dr coombs and dr stubbs yesterday -- right now can't really take care of at home "as is" - feels that he needs some help. alternatively he does not seem entirely opposed to a facility either. as far as going home - isn't really able to specifically voice what "some help" would mean. asked him to think about specifics so we could try to help guide/plan. discussed limitations of what can be "medically" set up (apparently does not qualify for hospice at this time, home nursing limited in scope and duration of visits, private duty caregivers are generally out of pocket expense) and discussed possible needs he would have / needs people commonly have as a caregiver (ie the need for an hour to go to the store, the need for overnight help so he can get sleep, etc). discussed risk/benefit of meds to help w behaviors including potential for limited benefit (might help some, but not definitively) and potential for risks including even fatal cardiac arrythmias. after discussion of this, thought, he would prefer we try - goal overall for quality of life, and the potential to get her home if possible Review of Systems Review of Systems: Unobtainable due to cognitive status Physical Exam Physical Exam: awake, pleasant, laying in bed, nad. heent nc at mmm breathing unlabored no accessory muscles good effort skin no rashes no pallor or icterus no focal neuro deficits at rest EEG noted no seizure activity Results & Data Results & Data ([facility]) Vital Signs (Past 12 Hours) Vital Signs Temp Pulse Pulse Resp BP Pulse Ox 11/16/21 14:48 98.1 F 96 H 16 143/76 H 94 11/16/21 11:52 70 11/16/21 11:36 98.1 F 90 20 126/76 97 11/16/21 11:09 143 H 11/16/21 07:00 97.3 F L 96 H 97 H 20 146/80 H 96 PG Care Time/CCT Total # of Minutes Spent Total Time Spent with Patient: Total time spent is greater than 50% in coordination of care (as documented) at patient's floor/unit and/or counseling patient: Coding Level of Care Code 98298 Subseq Hosp Care Lvl 3 Diagnoses Malnutrition E46 Liver failure, acute K72.00 Tylenol overdose T39.1X1A Cognitive and behavioral changes R41.89; R46.89 Depression with anxiety F41.8
[2021-11-16] MEDS: MIRTAZAPINE TAB 15 MG TAB PO SCH (18:26)
[2021-11-16] MEDS: MELATONIN 3 MG TAB PO SCH (20:56)
[2021-11-16] MEDS ORDERED: QUEtiapine FUMARATE 50 MG TABCR PO SCH (21:00)
--- NOTE | 2021-11-17 07:04 | Communication Note ---
Date of Service: November 17, 2021 patient's Remeron shifted to bedtime and did accept last pm. Interim progress reviewed. Patient remains confused, restless at times. Primary service starting hs Seroquel XR. EEG nl. considering additional care options. No additional recs at this time.
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
[2021-11-17 09:05] LABS: BUN Creatinine Ratio 22.2 (10-20); Calcium 7.5 mg/dl (8.5-10.1); Creatinine Clr Calc Pharmacy 91.6 ml/min; Est GFR (African American) 113.6 ml/min; Potassium 3.4 mmol/L (3.5-5.1)
[2021-11-17 09:07] LABS: Albumin Globulin Ratio 1.4 (0.9-2); Albumin Level 2.8 gm/dl (3.4-5.0); Bilirubin,Total 1.2 mg/dl (0.2-1.0); Total Protein 4.8 gm/dl (6.0-8.3)
[2021-11-17] MEDS: HEPARIN SOD 5,000 UNIT/0.5 ML VIAL SQ SCH ×2 (11:01→20:27)
[2021-11-17] MEDS: POLYETHYLENE (MIRALAX) 17 GM PACK PO SCH ×2 (11:02→20:24)
[2021-11-17] MEDS: THIAMINE HCL 100 MG in SYRINGE 9 ML IV SCH (11:02)
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
--- NOTE | 2021-11-17 17:24 | Billing Data ---
Date of Service November 17, 2021 Coding Level of Care Code 26597 Subseq Hosp Care Lvl 2
[2021-11-17] MEDS ORDERED: QUEtiapine FUMARATE 50 MG TABCR PO SCH (21:00)
--- NOTE | 2021-11-18 06:16 | Electrocardiogram Report ---
Test Reason : Blood Pressure : / mmHG Vent. Rate : 078 BPM Atrial Rate : 078 BPM P-R Int : 158 ms QRS Dur : 082 ms QT Int : 366 ms P-R-T Axes : 040 009 043 degrees QTc Int : 417 ms Normal sinus rhythm with sinus arrhythmia Normal ECG When compared with ECG of 11-NOV-2021 05:40, No significant change was found Confirmed by Miki Caceres ([id number]) on 11/18/2021 6:16:08 AM Referred By: REFERRED SELF Confirmed By:Miki Caceres
[2021-11-18] MEDS: POLYETHYLENE (MIRALAX) 17 GM PACK PO SCH ×2 (10:44→23:02)
[2021-11-18] MEDS: ENOXAPARIN INJ 30 MG/0.3 ML SYR SQ SCH (10:44)
[2021-11-18] MEDS: THIAMINE HCL 100 MG in SYRINGE 9 ML IV SCH (10:44)
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
--- NOTE | 2021-11-18 19:16 | Billing Data ---
Date of Service November 18, 2021 Coding Level of Care Code 04899 Subseq Hosp Care Lvl 2
[2021-11-18] MEDS: QUEtiapine FUMARATE 50 MG TABCR PO SCH (22:57)
[2021-11-19] MEDS: THIAMINE HCL 100 MG in SYRINGE 9 ML IV SCH (07:19)
[2021-11-19] MEDS: POLYETHYLENE (MIRALAX) 17 GM PACK PO SCH ×2 (07:23→20:19)
[2021-11-19] MEDS: ENOXAPARIN INJ 30 MG/0.3 ML SYR SQ SCH (07:23)
[2021-11-19 07:54] LABS: Hematocrit (blood only) 34.6 % (37-47); Hemoglobin 11.6 g/dL (12.0-16.0); Mean Corpuscular Hemoglobin 32.1 pg (25-34); Mean Corpuscular Hgb Conc 33.5 g/dL (32-36); Mean Corpuscular Volume 95.8 fL (80-100); Mean Platelet Volume 9.6 fL (7.4-10.4); Platelet Count 173 K/uL (130-400); RDW Coefficient of Variation 13.8 % (11.5-14.5); RDW Standard Deviation 47.3 fL (36.4-46.3); Red Blood Count 3.61 M/uL (4.2-5.4); White Blood Count 3.35 K/uL (4.8-10.8)
[2021-11-19 08:14] LABS: Albumin Globulin Ratio 1.4 (0.9-2); Albumin Level 2.8 gm/dl (3.4-5.0); BUN Creatinine Ratio 15.1 (10-20); Bilirubin,Total 0.9 mg/dl (0.2-1.0); Calcium 8.2 mg/dl (8.5-10.1); Creatinine Clr Calc Pharmacy 78.5 ml/min; Est GFR (African American) 107.6 ml/min; Est GFR (Non-African American) 92.9 ml/min; Potassium 3.6 mmol/L (3.5-5.1); Total Protein 4.8 gm/dl (6.0-8.3)
[2021-11-19] MEDS ORDERED: COVID-19 VAC,AD26(JANSSEN)/PF 0.5 ML SYR IM ONE (12:00)
--- NOTE | 2021-11-19 13:24 | Communication Note ---
Date of Service: November 19, 2021 patient was sleeping on rounds. Interim care review, case discussed briefly with Dr. Green. agreeing to explore placement options. Was aggressive to nurse overnight in the context of being woken up to attend to incontinence. Remeron has been discontinued. Reviewed duration of action of Seroquel XR vs. Seroquel if sedation continues. No additional recs at this time. Please call if additional questions/concerns.
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
--- NOTE | 2021-11-19 16:42 | Billing Data ---
Date of Service November 19, 2021 Coding Level of Care Code 14425 Subseq Hosp Care Lvl 1
[2021-11-19] MEDS: QUEtiapine FUMARATE 50 MG TABCR PO SCH (20:19)
[2021-11-20] MEDS: POLYETHYLENE (MIRALAX) 17 GM PACK PO SCH ×2 (08:51→21:24)
[2021-11-20] MEDS: ENOXAPARIN INJ 30 MG/0.3 ML SYR SQ SCH (08:51)
[2021-11-20] MEDS: THIAMINE HCL 100 MG in SYRINGE 9 ML IV SCH (08:52)
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
--- NOTE | 2021-11-20 15:30 | Electrocardiogram Report ---
Test Reason : Blood Pressure : / mmHG Vent. Rate : 079 BPM Atrial Rate : 079 BPM P-R Int : 152 ms QRS Dur : 074 ms QT Int : 350 ms P-R-T Axes : 058 005 057 degrees QTc Int : 401 ms Normal sinus rhythm Low voltage QRS Nonspecific T wave abnormality Abnormal ECG When compared with ECG of 17-NOV-2021 05:09, Nonspecific T wave abnormality is now Present Confirmed by Miki Caceres ([id number]) on 11/20/2021 3:30:00 PM Referred By: REFERRED SELF Confirmed By:Miki Caceres
--- NOTE | 2021-11-20 17:32 | Billing Data ---
Date of Service November 20, 2021 Coding Level of Care Code 18841 Subseq Hosp Care Lvl 1
--- NOTE | 2021-11-20 17:32 | Billing Data ---
Date of Service November 20, 2021 Coding Level of Care Code 78298 Subseq Hosp Care Lvl 1
[2021-11-20] MEDS: QUEtiapine FUMARATE 50 MG TABCR PO SCH (21:21)
[2021-11-21 08:29] LABS: Creatinine Clr Calc Pharmacy 94.5 ml/min; Est GFR (African American) 114.4 ml/min; Est GFR (Non-African American) 98.7 ml/min
[2021-11-21] MEDS: ENOXAPARIN INJ 30 MG/0.3 ML SYR SQ SCH (09:06)
[2021-11-21] MEDS: THIAMINE HCL 100 MG in SYRINGE 9 ML IV SCH (09:07)
[2021-11-21] MEDS: POLYETHYLENE (MIRALAX) 17 GM PACK PO SCH ×2 (09:10→22:03)
[2021-11-21] MEDS: SENNA 8.6 MG TAB PO SCH (09:10)
--- NOTE | 2021-11-21 09:14 | Hospitalist Progress Note ---
Date of Service November 21, 2021 Assessment & Plan (1) Malnutrition: (2) Liver failure, acute: (3) Tylenol overdose: (4) Cognitive and behavioral changes: (5) Depression with anxiety: Plan: Patient is a 75-year-old female with a history of hyperlipidemia, hypertension, DVT, and depression/anxiety who presented to the ED on 11/08 via ambulance from her home after ingesting an unknown quantity of Pooja[place], Acetaminophen, and Aleve. She presented with encephalopathy and was admitted for workup of encephalopathy and presumed acetaminophen overdose. Delrium/mild cognitive disorder with hx of depression, cannot exclude psychotic features - has been struggling with depressive symptoms for many years. worsening symptoms in last 2 yrs. get information from about daytime symptoms. - Night time wandering around at home - concerning of delirium - has f/h of fronto-temporal dementia. -CT findings consistent with mild atrophy of the cortical regions of the brain. - psych following started on mirtazepine 11/13. B12>1500,, folate wnl check for use of OTC meds other than tylenol possibly leading to delirium. - add thiamine - no recent h/o of Alcohol use. quit 2 yrs ago - use to drink one bottle of wine daily. - Seroquel 50 mg at night. -Ongoing search for [facility]. Polypharmacy overdose, resolved Dementia causing Polypharm OD - ingestion of Tylenol, Aspirin, Pooja-[place] (unknown quantity) Tylenol is acetaminophen 650mg, clarification by - Seemingly unintentional, patient has hx of depression/anxiety, but also reports declining cognition. - Poison control contacted, NAC protocol - completed Acute liver failure - 2/2 acetaminophen overdose. - GI consulted. Recommended - transfer to tertiary care. Per tertiary care - Not considered liver transplant candidate - Echo and liver doppler neg. - Autoimmune panel neg, Hep B, Hep C antibody negative for other etiology. - s/p NAC protocol. - transaminitis AST max 6045 -Continuing to improve/downtrend - coags: INR 3.2 on admit, given IV vit K, latest 1.2 Malnutrition - 2 year history of weight loss and lack of appetite - pt has lost approx 60 lbs since November 2019 - daily standing weights to monitor weight gain - TSH, Free T4 wnl Free T3 low 1.81 - consult nutrition thick fluids diet supplement diet with boost, TID - Discussed with again - 11/13. Lack of PO intake likely from worsening dementia/depression. Follow for remeron response - Hold PAINTER CHASSIS consult at this time. Goals of Care - patient unable to complete ADL's independently at this time, complicated by underlying dementia, delirium, and malnourishment - discussed with . She has 2 years of mental decline difficulty with self care, has refused medical care/medication and has increased impulsiveness, decreased willingness to eat, per occasional episodes of staring into space and hearing voices. thinks he could care for her better if she would take medication and eat regularly, he understands that if patient does not eat eventually she will pass. -After discussion with the , he does feel it is appropriate to begin looking for placement at a [facility]. Continue search for [facility]. J&J vaccine administered 11/19. DVT ppx: Heparin 5000 subQ BID FEN/GI: thick fluid diet, boost supplement Code Status: DNR/DNI Dispo: med/surg. discharge to care facility when able. Admission and Anticipated Discharge Date Admission Date: November 08, 2021 Supervising Physician Co-Signing Physician Notes I personally examined the patient and verified all faust points of history and exam, discussed case, and agree with decision making with Dr Green no meaningful HPI or ROS obtainable for me today. sleeping and appears comfortable. nursing notes she's actually been doing well during the day vitals noted nad heent nc at mmm breathing unlabored no accessory muscles good effort skin no rashes no pallor or icterus dementia - frontotemporal, EtOH related, alzheimers related - ?all of above. at this point largely supportive care and trying to help w behaviors. ongoing trial of seroquel (EKG for QTc tomorrow); while unlikely to be purely psychosis, her improvement overall on the seroquel does beg ongoing close f/u on the degree of improvement she shows. at this point still almost certainly would be best served at SNF/dementia unit, but if she were to pleasantly surprise us with ongoing and significant improvement on antipsychotic, then this could be revisited. dispo to facility / dementia unit once bed available barring an unlikely significant improvement in cognition as outlined above otherwise as above Subjective Patient seen at bedside this morning. No acute events reported overnight. Patient asleep at the time of encounter, no need to wake at this time. No changes in care noted. No meaningful HPI review of systems at this time. Review of Systems Review of Systems: Unobtainable due to reduced consciousness Physical Exam Constitutional: WD/WN, vitals as above comfortable ENMT: external ear and nose normal, oropharynx normal Neck: normal visual inspection Respiratory: normal respiratory effort, lungs clear to auscultation Cardiovascular: RRR, no murmur, no edema Chest (Breasts): Chest: normal inspection of chest Gastrointestinal (Abdomen): normal bowel sounds, soft, nontender, no hepatosplenomegaly Skin: no rashes, warm and dry Results & Data Results & Data ([facility]) Vital Signs (Past 12 Hours) Vital Signs Temp Pulse Pulse Resp BP BP Pulse Ox 11/21/21 07:30 37.2 C 93 H 18 129/75 95 11/20/21 22:25 37.6 C H 83 16 128/75 95
--- NOTE | 2021-11-21 13:28 | Billing Data ---
Date of Service November 21, 2021 Coding Level of Care Code 21077 Subseq Hosp Care Lvl 1
[2021-11-21] MEDS: QUEtiapine FUMARATE 50 MG TABCR PO SCH (22:03)
--- NOTE | 2021-11-22 10:16 | Hospitalist Progress Note ---
Date of Service November 22, 2021 Assessment & Plan (1) Malnutrition: (2) Liver failure, acute: (3) Tylenol overdose: (4) Cognitive and behavioral changes: (5) Depression with anxiety: Plan: Patient is a 75-year-old female with a history of hyperlipidemia, hypertension, DVT, and depression/anxiety who presented to the ED on 11/08 via ambulance from her home after ingesting an unknown quantity of Pooja-[place], Acetaminophen, and Aleve. She presented with encephalopathy and was admitted for workup of encephalopathy and presumed acetaminophen overdose. Delrium/mild cognitive disorder with hx of depression, cannot exclude psychotic features - has been struggling with depressive symptoms for many years. worsening symptoms in last 2 yrs. get information from about daytime symptoms. - Night time wandering around at home - concerning of delirium - has f/h of fronto-temporal dementia. -CT findings consistent with mild atrophy of the cortical regions of the brain. - psych following started on mirtazepine 11/13. B12>1500,, folate wnl check for use of OTC meds other than tylenol possibly leading to delirium. - add thiamine - no recent h/o of Alcohol use. quit 2 yrs ago - use to drink one bottle of wine daily. - Seroquel 50 mg at night, repeat EKG today showed a QTC of 446 ms -Ongoing search for [facility]. Polypharmacy overdose, resolved Dementia causing Polypharm OD - ingestion of Tylenol, Aspirin, Pooja-[place] (unknown quantity) Tylenol is acetaminophen 650mg, clarification by - Seemingly unintentional, patient has hx of depression/anxiety, but also reports declining cognition. - Poison control contacted, NAC protocol - completed Acute liver failure - 2/2 acetaminophen overdose. - GI consulted. Recommended - transfer to tertiary care. Per tertiary care - Not considered liver transplant candidate - Echo and liver doppler neg. - Autoimmune panel neg, Hep B, Hep C antibody negative for other etiology. - s/p NAC protocol. - transaminitis AST max 6045 -Continuing to improve/downtrend - coags: INR 3.2 on admit, given IV vit K, latest 1.2 Malnutrition - 2 year history of weight loss and lack of appetite - pt has lost approx 60 lbs since November 2019 - daily standing weights to monitor weight gain - TSH, Free T4 wnl Free T3 low 1.81 - consult nutrition thick fluids diet supplement diet with boost, TID - Discussed with again - 11/13. Lack of PO intake likely from worsening dementia/depression. Follow for rodriguezn response - Hold VP [employer]ATION consult at this time. Goals of Care - patient unable to complete ADL's independently at this time, complicated by underlying dementia, delirium, and malnourishment - discussed with . She has 2 years of mental decline difficulty with self care, has refused medical care/medication and has increased impulsiveness, decreased willingness to eat, per occasional episodes of staring into space and hearing voices. thinks he could care for her better if she would take medication and eat regularly, he understands that if patient does not eat eventually she will pass. -After discussion with the , he does feel it is appropriate to begin looking for placement at a [facility]. Continue search for [facility]. J&J vaccine administered 11/19. DVT ppx: Heparin 5000 subQ BID FEN/GI: thick fluid diet, boost supplement Code Status: DNR/DNI Dispo: med/surg. discharge to care facility when able. Admission and Anticipated Discharge Date Admission Date: November 08, 2021 Supervising Physician Co-Signing Physician Notes I personally examined the patient and verified all faust points of history and exam, discussed case, and agree with decision making with Dr Green no meaningful HPI or ROS obtainable -sleeping and appears comfortable. nursing notes she's actually been doing well during the day vitals noted nad heent nc at mmm breathing unlabored no accessory muscles good effort skin no rashes no pallor or icterus dementia - frontotemporal, EtOH related, alzheimers related - ?all of above. at this point largely supportive care and trying to help w behaviors. ongoing trial of seroquel (EKG shows QTc 446 today); while unlikely to be purely psychosis, her improvement overall on the seroquel does beg ongoing close f/u on the degree of improvement she shows. at this point still almost certainly would be best served at SNF/dementia unit, but if she were to pleasantly surprise us with ongoing and significant improvement on antipsychotic, then this could be revisited. dispo to facility / dementia unit once bed available barring an unlikely significant improvement in cognition as outlined above otherwise as above Subjective Patient seen at bedside this morning. No acute events reported overnight. Patient asleep at the time of encounter, no need to wake at this time. No changes in care noted. No meaningful HPI review of systems at this time. Review of Systems Review of Systems: Unobtainable due to reduced consciousness Physical Exam Constitutional: WD/WN, vitals as above comfortable ENMT: external ear and nose normal, oropharynx normal Neck: normal visual inspection Respiratory: normal respiratory effort, lungs clear to auscultation Cardiovascular: RRR, no murmur, no edema Gastrointestinal (Abdomen): normal bowel sounds, soft, nontender, no hepatosplenomegaly Skin: no rashes, warm and dry Results & Data Results & Data ([facility]) Vital Signs (Past 12 Hours) Vital Signs Temp Pulse Resp BP Pulse Ox 11/22/21 08:00 37.1 C 84 18 136/80 93
--- NOTE | 2021-11-22 10:33 | Electrocardiogram Report ---
Test Reason : Blood Pressure : / mmHG Vent. Rate : 083 BPM Atrial Rate : 083 BPM P-R Int : 156 ms QRS Dur : 072 ms QT Int : 380 ms P-R-T Axes : 068 058 069 degrees QTc Int : 446 ms Normal sinus rhythm Low voltage QRS Borderline ECG When compared with ECG of 19-NOV-2021 05:36, No significant change was found Confirmed by Allan Mcleod ([id number]) on 11/22/2021 10:32:43 AM Referred By: REFERRED SELF Confirmed By:Song Mcleod
[2021-11-22] MEDS: THIAMINE HCL 100 MG in SYRINGE 9 ML IV SCH (10:45)
[2021-11-22] MEDS: ENOXAPARIN INJ 30 MG/0.3 ML SYR SQ SCH (10:46)
[2021-11-22] MEDS: SENNA 8.6 MG TAB PO SCH (10:46)
[2021-11-22] MEDS: POLYETHYLENE (MIRALAX) 17 GM PACK PO SCH ×2 (10:48→20:58)
--- NOTE | 2021-11-22 15:45 | Billing Data ---
Date of Service November 22, 2021 Coding Level of Care Code 39404 Subseq Hosp Care Lvl 1
[2021-11-22] MEDS: QUEtiapine FUMARATE 50 MG TABCR PO SCH (20:58)
[2021-11-23] MEDS: ENOXAPARIN INJ 30 MG/0.3 ML SYR SQ SCH (09:40)
[2021-11-23] MEDS: SENNA 8.6 MG TAB PO SCH (09:40)
[2021-11-23] MEDS: THIAMINE HCL 100 MG in SYRINGE 9 ML IV SCH (09:40)
[2021-11-23] MEDS: POLYETHYLENE (MIRALAX) 17 GM PACK PO SCH ×2 (10:02→20:49)
--- NOTE | 2021-11-23 14:19 | Hospitalist Progress Note ---
Date of Service November 23, 2021 Assessment & Plan (1) Malnutrition: (2) Liver failure, acute: (3) Tylenol overdose: (4) Cognitive and behavioral changes: (5) Depression with anxiety: Plan: Patient is a 75-year-old female with a history of hyperlipidemia, hypertension, DVT, and depression/anxiety who presented to the ED on 11/08 via ambulance from her home after ingesting an unknown quantity of Pooja[place], Acetaminophen, and Aleve. She presented with encephalopathy and was admitted for workup of encephalopathy and presumed acetaminophen overdose. Delrium/mild cognitive disorder with hx of depression, cannot exclude psychotic features - has been struggling with depressive symptoms for many years. worsening symptoms in last 2 yrs. get information from about daytime symptoms. - Night time wandering around at home - concerning of delirium - has f/h of fronto-temporal dementia. - CT findings consistent with mild atrophy of the cortical regions of the brain. - psych following started on mirtazepine 11/13. B12>1500,, folate wnl check for use of OTC meds other than tylenol possibly leading to delirium. - added thiamine - no recent h/o of Alcohol use. quit 2 yrs ago - use to drink one bottle of wine daily. - Seroquel 50 mg at night, repeat EKG 11/22 showed a QTC of 446 ms, continue current dose - Ongoing search for [facility]. Polypharmacy overdose, resolved Dementia causing Polypharm OD - ingestion of Tylenol, Aspirin, Pooja[place] (unknown quantity) Tylenol is acetaminophen 650mg, clarification by - Seemingly unintentional, patient has hx of depression/anxiety, but also reports declining cognition. - Poison control contacted, NAC protocol - completed Acute liver failure, resolved - 2/2 acetaminophen overdose. - GI consulted. Recommended - transfer to tertiary care. Per tertiary care - Not considered liver transplant candidate - Echo and liver doppler neg. - Autoimmune panel neg, Hep B, Hep C antibody negative for other etiology. - s/p NAC protocol. - transaminitis AST max 6045 -Continuing to improve/downtrend - coags: INR 3.2 on admit, given IV vit K, latest 1.2 Malnutrition - 2 year history of weight loss and lack of appetite - pt has lost approx 60 lbs since November 2019 - daily standing weights to monitor weight gain - TSH, Free T4 wnl Free T3 low 1.81 - consult nutrition thick fluids diet supplement diet with boost, TID - Discussed with again - 11/13. Lack of PO intake likely from worsening dementia/depression. Follow for remeron response - Hold MARINE INSULATOR consult at this time. Goals of Care - patient unable to complete ADL's independently at this time, complicated by underlying dementia, delirium, and malnourishment - discussed with . She has 2 years of mental decline difficulty with self care, has refused medical care/medication and has increased impulsiveness, decreased willingness to eat, per occasional episodes of staring into space and hearing voices. thinks he could care for her better if she would take medication and eat regularly, he understands that if patient does not eat eventually she will pass. -After discussion with the , he does feel it is appropriate to begin looking for placement at a dementia [facility]. Continue search for dementia [facility]. J&J vaccine administered 11/19. DVT ppx: Heparin 5000 subQ BID FEN/GI: thick fluid diet, boost supplement Code Status: DNR/DNI Dispo: med/surg. discharge to care facility when able. Admission and Anticipated Discharge Date Admission Date: November 08, 2021 Supervising Physician Co-Signing Physician Notes Attending attestation Pt seen and examined in concert with Dr. Green. In agreement with the documented findings as noted in the resident documentation with any exceptions or additions as noted here. No meaningful HPI/ROS obtainable, though appears comfortable on re-evaluation throughout the day. S1/S2 nl RRR no MCG. CTAB. Abd NT/ND BS+ve Delirium w/ dementia - multifactorial ?frontotemporal v. etOH v. Alzheimers - continue supportive care and monitor on Seroquel for improvement v. oversedation - pros/cons vs increasing medication and continued surveillance re: EKG/QTc vs. worsening mental status 2/2 underlying dementia and will continue present dose at this time. Patient would benefit from care at SNF/dementia unit unless clinical status changes. Else see resident documentation as noted. Subjective Patient seen at bedside this morning. No acute events reported overnight by nursing. Patient was asleep at the time of examination, however, when physical exam was being performed patient did wake up and began yelling profanities at me until I had left the room. No other meaningful HPI or review of systems was obtainable at this time. Review of Systems Review of Systems: Unobtainable due to cognitive status Physical Exam Constitutional: WD/WN, vitals as above comfortable ENMT: external ear and nose normal, oropharynx normal Neck: normal visual inspection Respiratory: normal respiratory effort, lungs clear to auscultation Cardiovascular: RRR, no murmur, no edema Gastrointestinal (Abdomen): normal bowel sounds, soft, nontender, no hepatosplenomegaly Skin: no rashes, warm and dry Results & Data Results & Data ([facility]) Vital Signs (Past 12 Hours) Vital Signs Temp Pulse Resp BP Pulse Ox 11/23/21 07:32 36.5 C 79 13 144/83 H 96
[2021-11-23] MEDS: QUEtiapine FUMARATE 50 MG TABCR PO SCH (20:50)
[2021-11-24 07:25] LABS: Hematocrit (blood only) 35.9 % (37-47); Hemoglobin 11.6 g/dL (12.0-16.0); Mean Corpuscular Hemoglobin 31.6 pg (25-34); Mean Corpuscular Hgb Conc 32.3 g/dL (32-36); Mean Corpuscular Volume 97.8 fL (80-100); Mean Platelet Volume 10.1 fL (7.4-10.4); Platelet Count 187 K/uL (130-400); RDW Coefficient of Variation 14.3 % (11.5-14.5); RDW Standard Deviation 50.7 fL (36.4-46.3); Red Blood Count 3.67 M/uL (4.2-5.4); White Blood Count 4.44 K/uL (4.8-10.8)
[2021-11-24 08:08] LABS: BUN Creatinine Ratio 38.8 (10-20); Calcium 8.5 mg/dl (8.5-10.1); Creatinine Clr Calc Pharmacy 83.6 ml/min; Est GFR (African American) 109.7 ml/min; Est GFR (Non-African American) 94.6 ml/min; Magnesium 1.8 mg/dl (1.7-2.4); Phosphorus 3.3 mg/dl (2.5-4.9); Potassium 3.7 mmol/L (3.5-5.1)
[2021-11-24] MEDS: THIAMINE HCL 100 MG in SYRINGE 9 ML IV SCH (09:39)
[2021-11-24] MEDS: SENNA 8.6 MG TAB PO SCH (09:39)
[2021-11-24] MEDS: ENOXAPARIN INJ 30 MG/0.3 ML SYR SQ SCH (09:39)
[2021-11-24] MEDS: POLYETHYLENE (MIRALAX) 17 GM PACK PO SCH ×2 (09:43→22:06)
--- NOTE | 2021-11-24 10:09 | Hospitalist Progress Note ---
Date of Service November 24, 2021 Assessment & Plan (1) Malnutrition: (2) Liver failure, acute: (3) Tylenol overdose: (4) Cognitive and behavioral changes: (5) Depression with anxiety: Plan: Patient is a 75-year-old female with a history of hyperlipidemia, hypertension, DVT, and depression/anxiety who presented to the ED on 11/08 via ambulance from her home after ingesting an unknown quantity of Pooja-[place], Acetaminophen, and Aleve. She presented with encephalopathy and was admitted for workup of encephalopathy and presumed acetaminophen overdose. Delrium/mild cognitive disorder with hx of depression, cannot exclude psychotic features - has been struggling with depressive symptoms for many years. worsening symptoms in last 2 yrs. get information from about daytime symptoms. - Night time wandering around at home - concerning of delirium - has f/h of fronto-temporal dementia. - CT findings consistent with mild atrophy of the cortical regions of the brain. - psych following started on mirtazepine 11/13. B12>1500,, folate wnl check for use of OTC meds other than tylenol possibly leading to delirium. - added thiamine - no recent h/o of Alcohol use. quit 2 yrs ago - use to drink one bottle of wine daily. - Seroquel 50 mg at night, repeat EKG 11/22 showed a QTC of 446 ms, continue current dose - Ongoing search for dementia [facility]. -Lab recheck this morning are within normal limits. Polypharmacy overdose, resolved Dementia causing Polypharm OD - ingestion of Tylenol, Aspirin, Pooja[place] (unknown quantity) Tylenol is acetaminophen 650mg, clarification by - Seemingly unintentional, patient has hx of depression/anxiety, but also reports declining cognition. - Poison control contacted, NAC protocol - completed Acute liver failure, resolved - 2/2 acetaminophen overdose. - GI consulted. Recommended - transfer to tertiary care. Per tertiary care - Not considered liver transplant candidate - Echo and liver doppler neg. - Autoimmune panel neg, Hep B, Hep C antibody negative for other etiology. - s/p NAC protocol. - transaminitis AST max 6045 -Continuing to improve/downtrend - coags: INR 3.2 on admit, given IV vit K, latest 1.2 Malnutrition - 2 year history of weight loss and lack of appetite - pt has lost approx 60 lbs since November 2019 - daily standing weights to monitor weight gain - TSH, Free T4 wnl Free T3 low 1.81 - consult nutrition thick fluids diet supplement diet with boost, TID - Discussed with again - 11/13. Lack of PO intake likely from worsening dementia/depression. Follow for remeron response - Hold SALES [employer]EC[employer]IVE INSUR[employer] consult at this time. -Diet changed to regular diet as tolerated. Goals of Care - patient unable to complete ADL's independently at this time, complicated by underlying dementia, delirium, and malnourishment - discussed with . She has 2 years of mental decline difficulty with self care, has refused medical care/medication and has increased impulsiveness, decreased willingness to eat, per occasional episodes of staring into space and hearing voices. thinks he could care for her better if she would take medication and eat regularly, he understands that if patient does not eat eventually she will pass. -After discussion with the , he does feel it is appropriate to begin looking for placement at a dementia [facility]. Continue search for [facility]. J&J vaccine administered 11/19. DVT ppx: Heparin 5000 subQ BID FEN/GI: Regular diet as tolerated with boost supplementation. Code Status: DNR/DNI Dispo: med/surg. discharge to care facility when able. Admission and Anticipated Discharge Date Admission Date: November 08, 2021 Supervising Physician Co-Signing Physician Notes Attending attestation Pt seen and examined in concert with Dr. Green. In agreement with the documented findings as noted in the resident documentation with any exceptions or additions as noted here. No meaningful HPI/ROS obtainable, though appears comfortable on re-evaluation throughout the day. S1/S2 nl RRR no MCG. CTAB. Abd NT/ND BS+ve Delirium w/ dementia - multifactorial ?frontotemporal v. etOH v. Alzheimers - continue supportive care and monitor on Seroquel for improvement v. oversedation - Patient would benefit from care at SNF/dementia unit unless clinical status changes, continued goals of care conversation with spouse regarding placement and appropriate level of care Else see resident documentation as noted. Subjective Patient seen at bedside this morning. No acute events reported overnight. Patient resting comfortably in bed. Was arousable this morning and relatively pleasant. Patient fell asleep shortly after talking to her. Search for a facility at this time still actively being searched for by case management. No other complaints at this time. Review of Systems Review of Systems: Unobtainable due to reduced consciousness Physical Exam Constitutional: WD/WN, vitals as above comfortable ENMT: external ear and nose normal, oropharynx normal Neck: normal visual inspection Respiratory: normal respiratory effort, lungs clear to auscultation Cardiovascular: RRR, no murmur, no edema Gastrointestinal (Abdomen): normal bowel sounds, soft, nontender, no hepatosplenomegaly Skin: no rashes, warm and dry Results & Data Results & Data ([facility]) Vital Signs (Past 12 Hours) Vital Signs Temp Pulse Resp BP Pulse Ox 11/24/21 07:45 36.6 C 86 14 121/75 96
[2021-11-24] MEDS: QUEtiapine FUMARATE 50 MG TABCR PO SCH (22:06)
--- NOTE | 2021-11-25 07:22 | Hospitalist Progress Note ---
Date of Service November 25, 2021 Assessment & Plan (1) Malnutrition: (2) Liver failure, acute: (3) Tylenol overdose: (4) Cognitive and behavioral changes: (5) Depression with anxiety: Plan: Patient is a 75-year-old female with a history of hyperlipidemia, hypertension, DVT, and depression/anxiety who presented to the ED on 11/08 via ambulance from her home after ingesting an unknown quantity of Pooja[place], Acetaminophen, and Aleve. She presented with encephalopathy and was admitted for workup of encephalopathy and presumed acetaminophen overdose. Delrium/mild cognitive disorder with hx of depression, cannot exclude psychotic features - has been struggling with depressive symptoms for many years. worsening symptoms in last 2 yrs. get information from about daytime symptoms. - Night time wandering around at home - concerning of delirium - has f/h of fronto-temporal dementia. - CT findings consistent with mild atrophy of the cortical regions of the brain. - psych following started on mirtazepine 11/13. B12>1500,, folate wnl check for use of OTC meds other than tylenol possibly leading to delirium. - added thiamine - no recent h/o of Alcohol use. quit 2 yrs ago - use to drink one bottle of wine daily. - Seroquel 50 mg at night, repeat EKG 11/22 showed a QTC of 446 ms, continue current dose - Having physical therapy reattempt working with patient today in order to expedite patient disposition for discharge. Polypharmacy overdose, resolved Dementia causing Polypharm OD - ingestion of Tylenol, Aspirin, Pooja[place] (unknown quantity) Tylenol is acetaminophen 650mg, clarification by - Seemingly unintentional, patient has hx of depression/anxiety, but also reports declining cognition. - Poison control contacted, NAC protocol - completed Acute liver failure, resolved - 2/2 acetaminophen overdose. - GI consulted. Recommended - transfer to tertiary care. Per tertiary care - Not considered liver transplant candidate - Echo and liver doppler neg. - Autoimmune panel neg, Hep B, Hep C antibody negative for other etiology. - s/p NAC protocol. - transaminitis AST max 6045 -Continuing to improve/downtrend - coags: INR 3.2 on admit, given IV vit K, latest 1.2 Malnutrition - 2 year history of weight loss and lack of appetite - pt has lost approx 60 lbs since November 2019 - daily standing weights to monitor weight gain - TSH, Free T4 wnl Free T3 low 1.81 - consult nutrition thick fluids diet supplement diet with boost, TID - Discussed with again - 11/13. Lack of PO intake likely from worsening dementia/depression. Follow for remeron response - Hold PLANT MAINTENANCE WORKER consult at this time. -Diet changed to regular diet as tolerated. Goals of Care - patient unable to complete ADL's independently at this time, complicated by underlying dementia, delirium, and malnourishment - discussed with . She has 2 years of mental decline difficulty with self care, has refused medical care/medication and has increased impulsiveness, decreased willingness to eat, per occasional episodes of staring into space and hearing voices. thinks he could care for her better if she would take medication and eat regularly, he understands that if patient does not eat eventually she will pass. -Per conversation with case management, dementia gallagher will be [id number] for family which would likely not be possible. At this time they recommend having physical therapy stop and reattempt working with patient so that they can look into care home facility for disposition. J&J vaccine administered 11/19. DVT ppx: Heparin 5000 subQ BID FEN/GI: Regular diet as tolerated with boost supplementation. Code Status: DNR/DNI Dispo: med/surg. discharge to care facility when able. Admission and Anticipated Discharge Date Admission Date: November 08, 2021 Supervising Physician Co-Signing Physician Notes Attending attestation Pt seen and examined in concert with Dr. Green. In agreement with the documented findings as noted in the resident documentation with any exceptions or additions as noted here. No meaningful HPI/ROS obtainable, though pleasantly responsive during evaluation. S1/S2 nl RRR no MCG. CTAB. Abd NT/ND BS+ve Delirium w/ dementia - multifactorial ?frontotemporal v. etOH v. Alzheimers - continue supportive care and monitor on Seroquel for improvement v. oversedation - unable to work with PT, will need to d/w spouse goals of care. Malnutrition - similarly, decreased POI w/ weight loss - could consider addition of Marinol following [facility] conversation Else see resident documentation as noted. Subjective Seen at bedside this morning. Patient had no acute events overnight. Patient was awoken this morning and was very pleasant, however, patient reports that she was having nightmares and she had a dream that her dad . Shortly after discussing with her about her dream she went back to sleep and her physical exam was performed as below. Unable to get review of systems at this time Review of Systems Review of Systems: Unobtainable due to reduced consciousness Physical Exam Constitutional: WD/WN, vitals as above comfortable ENMT: external ear and nose normal, oropharynx normal Neck: normal visual inspection Respiratory: normal respiratory effort, lungs clear to auscultation Cardiovascular: RRR, no murmur, no edema Gastrointestinal (Abdomen): normal bowel sounds, soft, nontender, no hepatosplenomegaly Skin: no rashes, warm and dry Results & Data Results & Data ([facility]) Vital Signs (Past 12 Hours) Vital Signs Temp Pulse Resp BP Pulse Ox 11/24/21 22:44 36.7 C 74 16 99/63 L 96
[2021-11-25] MEDS: ENOXAPARIN INJ 30 MG/0.3 ML SYR SQ SCH (11:12)
[2021-11-25] MEDS: POLYETHYLENE (MIRALAX) 17 GM PACK PO SCH ×2 (11:13→20:40)
[2021-11-25] MEDS: THIAMINE HCL 100 MG in SYRINGE 9 ML IV SCH (11:14)
[2021-11-25] MEDS: SENNA 8.6 MG TAB PO SCH (11:14)
[2021-11-25] MEDS: QUEtiapine FUMARATE 50 MG TABCR PO SCH (20:40)
[2021-11-26] MEDS: THIAMINE HCL 100 MG in SYRINGE 9 ML IV SCH (08:47)
[2021-11-26] MEDS: ENOXAPARIN INJ 30 MG/0.3 ML SYR SQ SCH (08:48)
[2021-11-26] MEDS: POLYETHYLENE (MIRALAX) 17 GM PACK PO SCH ×2 (08:49→20:17)
[2021-11-26] MEDS: SENNA 8.6 MG TAB PO SCH (08:50)
--- NOTE | 2021-11-26 17:18 | Hospitalist Progress Note ---
Date of Service November 26, 2021 Assessment & Plan (1) Malnutrition: (2) Liver failure, acute: (3) Tylenol overdose: (4) Cognitive and behavioral changes: (5) Depression with anxiety: Plan: Patient is a 75-year-old female with a history of hyperlipidemia, hypertension, DVT, and depression/anxiety who presented to the ED on 11/08 via ambulance from her home after ingesting an unknown quantity of Pooja-[place], Acetaminophen, and Aleve. She presented with encephalopathy and was admitted for workup of encephalopathy and presumed acetaminophen overdose. Delrium/mild cognitive disorder with hx of depression, cannot exclude psychotic features - has been struggling with depressive symptoms for many years. worsening symptoms in last 2 yrs. get information from about daytime symptoms. - Night time wandering around at home - concerning of delirium - has f/h of fronto-temporal dementia. - CT findings consistent with mild atrophy of the cortical regions of the brain. - psych following started on mirtazepine 11/13. B12>1500,, folate wnl check for use of OTC meds other than tylenol possibly leading to delirium. - added thiamine - no recent h/o of Alcohol use. quit 2 yrs ago - use to drink one bottle of wine daily. - Seroquel 50 mg at night, repeat EKG 11/22 showed a QTC of 446 ms, continue current dose - Having physical therapy reattempt working with patient today in order to expedite patient disposition for discharge. Polypharmacy overdose, resolved Dementia causing Polypharm OD - ingestion of Tylenol, Aspirin, Pooja-[place] (unknown quantity) Tylenol is acetaminophen 650mg, clarification by - Seemingly unintentional, patient has hx of depression/anxiety, but also reports declining cognition. - Poison control contacted, NAC protocol - completed Acute liver failure, resolved - 2/2 acetaminophen overdose. - GI consulted. Recommended - transfer to tertiary care. Per tertiary care - Not considered liver transplant candidate - Echo and liver doppler neg. - Autoimmune panel neg, Hep B, Hep C antibody negative for other etiology. - s/p NAC protocol. - transaminitis AST max 6045 -Continuing to improve/downtrend - coags: INR 3.2 on admit, given IV vit K, latest 1.2 Malnutrition - 2 year history of weight loss and lack of appetite - pt has lost approx 60 lbs since November 2019 - daily standing weights to monitor weight gain - TSH, Free T4 wnl Free T3 low 1.81 - consult nutrition thick fluids diet supplement diet with boost, TID - Discussed with again - 11/13. Lack of PO intake likely from worsening dementia/depression. Follow for remeron response - Hold PARACHUTE MENDER consult at this time. -Diet changed to regular diet as tolerated. Goals of Care - patient unable to complete ADL's independently at this time, complicated by underlying dementia, delirium, and malnourishment - discussed with . She has 2 years of mental decline difficulty with self care, has refused medical care/medication and has increased impulsiveness, decreased willingness to eat, per occasional episodes of staring into space and hearing voices. thinks he could care for her better if she would take medication and eat regularly, he understands that if patient does not eat eventually she will pass. -Per conversation with case management, dementia gallagher will be [id number] for family which would likely not be possible. At this time they recommend having physical therapy stop and reattempt working with patient so that they can look into long-term facility for disposition. At this time however it seems that the patient has had a week of nonaggressive behavior with good mentation and improvement with behavior. It is likely she would do better at home now than she did prior to admission to the hospital and there was a long conversation with and he is in agreement that he feels like he would be able to take care of her at this time but needs time to prep his house for her discharge. We will discuss this with case management tomorrow and come up with disposition plans regarding home physical therapy versus home health care. J&J vaccine administered 11/19. DVT ppx: Heparin 5000 subQ BID FEN/GI: Regular diet as tolerated with boost supplementation. Code Status: DNR/DNI Dispo: med/surg Admission and Anticipated Discharge Date Admission Date: November 08, 2021 Supervising Physician Co-Signing Physician Notes Attending attestation Pt seen and examined in concert with Dr. Green. In agreement with the documented findings as noted in the resident documentation with any exceptions or additions as noted here. No meaningful HPI/ROS obtainable, though significantly more responsive than previous. Answering yes/no to basic conversational questions. S1/S2 nl RRR no MCG. CTAB. Abd NT/ND BS+ve Delirium w/ dementia - multifactorial ?frontotemporal v. etOH v. Alzheimers - improved mentation today which may be adjustment to Seroquel vs. natural waxing/waning. Declines PT on repeat convesation. GOC with spouse re: return home vs. placement Malnutrition - similarly, decreased POI w/ weight loss - consider addition of Marinol, but did VERY well at eating lunch today so may not be needed. Else see resident documentation as noted. Subjective Patient seen at bedside this morning. Patient is very pleasant and oriented to person and place today. Talked about her dogs with her as she has pictures of her dogs from home at the bedside. Had a long discussion with patient's today about goals of care, disposition, and patient's current cognitive status. After some [id number] and laying out the options at hand which are the following: Patient participates in physical therapy and possibly get a referral to SNF, patient goes to dementia board which would be paid out of pocket by patient's family, or patient goes home under family's care. At this time is very pleased at the progress that the patient has made over the past week to week and a half since being placed on the Seroquel. He states that today is the best day he has seen of his in terms of her mood and mentation and this has made him very optimistic about the current care/prognosis that she has. was cautioned about the medication that she is on stating that the Seroquel will improve her mood and reduce her agitation/aggravation, however, it will not likely improve her waxing and waning in her memory/mentation. assures me that he is aware of this and is just happy to see some of his 's personality come out. Otherwise patient has no concerns today and seems to be doing well. Review of Systems Review of Systems: All systems reviewed & are unremarkable except as noted in HPI & below Physical Exam Constitutional: WD/WN, vitals as above comfortable ENMT: external ear and nose normal, oropharynx normal Neck: trachea midline, no thyromegaly normal visual inspection Respiratory: normal respiratory effort, lungs clear to auscultation Cardiovascular: RRR, no murmur, no edema Chest (Breasts): Chest: normal inspection of chest Gastrointestinal (Abdomen): normal bowel sounds, soft, nontender, no hepatosplenomegaly Skin: no rashes, warm and dry Psychiatric: Orientation: alert, oriented to person, oriented to place and cooperative; + not oriented to time Eye Contact: good eye contact Affect: euthymic affect Results & Data Results & Data ([facility]) Vital Signs (Past 12 Hours) Vital Signs Temp Pulse Resp BP Pulse Ox 11/26/21 16:15 37.2 C 83 16 105/71 95 11/26/21 07:10 36.9 C 79 16 119/72 95
[2021-11-26] MEDS: QUEtiapine FUMARATE 50 MG TABCR PO SCH (20:16)
[2021-11-27 07:05] LABS: Creatinine Clr Calc Pharmacy 81.9 ml/min
--- NOTE | 2021-11-27 08:49 | Hospitalist Progress Note ---
Date of Service November 27, 2021 Assessment & Plan (1) Malnutrition: (2) Liver failure, acute: (3) Tylenol overdose: (4) Cognitive and behavioral changes: (5) Depression with anxiety: Plan: Patient is a 75-year-old female with a history of hyperlipidemia, hypertension, DVT, and depression/anxiety who presented to the ED on 11/08 via ambulance from her home after ingesting an unknown quantity of Pooja[place], Acetaminophen, and Aleve. She presented with encephalopathy and was admitted for workup of encephalopathy and presumed acetaminophen overdose. Delrium/mild cognitive disorder with hx of depression, cannot exclude psychotic features - has been struggling with depressive symptoms for many years. worsening symptoms in last 2 yrs. get information from about daytime symptoms. - Night time wandering around at home - concerning of delirium - has f/h of fronto-temporal dementia. - CT findings consistent with mild atrophy of the cortical regions of the brain. - psych following started on mirtazepine 11/13. B12>1500,, folate wnl check for use of OTC meds other than tylenol possibly leading to delirium. - added thiamine - no recent h/o of Alcohol use. quit 2 yrs ago - use to drink one bottle of wine daily. - Seroquel 50 mg at night, repeat EKG 11/22 showed a QTC of 446 ms, continue current dose -We will have physical therapy attempt working with patient once again. Polypharmacy overdose, resolved Dementia causing Polypharm OD - ingestion of Tylenol, Aspirin, Pooja-[place] (unknown quantity) Tylenol is acetaminophen 650mg, clarification by - Seemingly unintentional, patient has hx of depression/anxiety, but also reports declining cognition. - Poison control contacted, NAC protocol - completed Acute liver failure, resolved - 2/2 acetaminophen overdose. - GI consulted. Recommended - transfer to tertiary care. Per tertiary care - Not considered liver transplant candidate - Echo and liver doppler neg. - Autoimmune panel neg, Hep B, Hep C antibody negative for other etiology. - s/p NAC protocol. - transaminitis AST max 6045 -Continuing to improve/downtrend - coags: INR 3.2 on admit, given IV vit K, latest 1.2 Malnutrition - 2 year history of weight loss and lack of appetite - pt has lost approx 60 lbs since November 2019 - daily standing weights to monitor weight gain - TSH, Free T4 wnl Free T3 low 1.81 - consult nutrition thick fluids diet supplement diet with boost, TID - Discussed with again - 11/13. Lack of PO intake likely from worsening dementia/depression. Follow for remeron response - Hold RFID STRATEGIST consult at this time. -Diet changed to regular diet as tolerated. Goals of Care - patient unable to complete ADL's independently at this time, complicated by underlying dementia, delirium, and malnourishment - discussed with . She has 2 years of mental decline difficulty with self care, has refused medical care/medication and has increased impulsiveness, decreased willingness to eat, per occasional episodes of staring into space and hearing voices. thinks he could care for her better if she would take medication and eat regularly, he understands that if patient does not eat eventually she will pass. -Per conversation with case management, dementia gallagher will be [id number] for family which would likely not be possible. At this time they recommend having physical therapy stop and reattempt working with patient so that they can look into correction facility for disposition. At this time however it seems that the patient has had a week of nonaggressive behavior with good mentation and improvement with behavior. It is likely she would do better at home now than she did prior to admission to the hospital and there was a long conversation with and he is in agreement that he feels like he would be able to take care of her at this time but needs time to prep his house for her discharge. We will discuss this with case management tomorrow and come up with disposition plans regarding home physical therapy versus home health care. J&J vaccine administered 11/19. DVT ppx: Heparin 5000 subQ BID FEN/GI: Regular diet as tolerated with boost supplementation. Code Status: DNR/DNI Dispo: med/surg Admission and Anticipated Discharge Date Admission Date: November 08, 2021 Supervising Physician Co-Signing Physician Notes I also saw the patient with the resident physician and confirmed faust portions of the history and physical examination. I agree with the impression and plan as noted in the resident documentation. Patient's behavioral disturbances have improved since addition of Seroquel XR at night. In fact, they have improved to the point that she may be able to be cared for at home. She seemed to have an acute encephalopathythis may been hepatic encephalopathy secondary to the Tylenol overdosebut underlying certainly a dementia, frontotemporal versus Alzheimer's. For now the Seroquel seems to be working well. Other considerations would be sertraline and memantine, perhaps in combination to the Seroquel. Will need outpatient neurology and or psychiatry consultations for continued care. The is aware that overall, the condition is progressive. Fortunately now, she is stabilized to the point where she can be cared for at home. Else see resident documentation as noted. Subjective Patient seen at bedside this morning. Patient was asleep at the time of my examination. Did not find the need to awaken the patient at this time as patient has been doing well and has no medical complications that require monitoring at this time. Has been doing well past week. Review of Systems Review of Systems: Unobtainable due to reduced consciousness Physical Exam Constitutional: WD/WN, vitals as above comfortable ENMT: external ear and nose normal, oropharynx normal Neck: normal visual inspection Respiratory: normal respiratory effort, lungs clear to auscultation Cardiovascular: RRR, no murmur, no edema Gastrointestinal (Abdomen): normal bowel sounds, soft, nontender, no hepatosplenomegaly Skin: no rashes, warm and dry Results & Data Results & Data ([facility]) Vital Signs (Past 12 Hours) Vital Signs Temp Pulse Pulse Resp BP BP Pulse Ox 11/27/21 07:45 36.6 C 87 18 132/77 95 11/26/21 22:41 37.0 C 80 16 113/69 97
[2021-11-27] MEDS: THIAMINE HCL 100 MG in SYRINGE 9 ML IV SCH (08:58)
[2021-11-27] MEDS: ENOXAPARIN INJ 30 MG/0.3 ML SYR SQ SCH (09:00)
[2021-11-27] MEDS: POLYETHYLENE (MIRALAX) 17 GM PACK PO SCH ×2 (09:01→21:30)
[2021-11-27] MEDS: SENNA 8.6 MG TAB PO SCH (09:02)
[2021-11-27] MEDS: QUEtiapine FUMARATE 50 MG TABCR PO SCH (21:30)
[2021-11-28] MEDS: THIAMINE HCL 100 MG in SYRINGE 9 ML IV SCH (08:48)
[2021-11-28] MEDS: POLYETHYLENE (MIRALAX) 17 GM PACK PO SCH ×2 (08:53→20:34)
[2021-11-28] MEDS: ENOXAPARIN INJ 30 MG/0.3 ML SYR SQ SCH (09:54)
[2021-11-28] MEDS: SENNA 8.6 MG TAB PO SCH (09:54)
--- NOTE | 2021-11-28 11:30 | Hospitalist Progress Note ---
Date of Service November 28, 2021 Assessment & Plan (1) Cognitive and behavioral changes: Plan: 75 yo F with PMH HLD, HTN, DVT, depression, anxiety, cognitive impairment at baseline admitted for encephalopathy after accidental ingestion of excessive acetaminophen Goals of care -Given pt's medical illnesses, there is significant limitation in independent completion of ADLs which has progressed over past year and limited ability for self-care -Per conversation with , he is willing to care for her if her eating improves -Case management following- dementia gallagher placement unlikely given financial strain on family, looking for potential SNF placement -Given pt's recent improvement in mentation and behavioral control, may be safe to d/c to home with care by -Plan at present is d/c home once family can prepare home appropriately. Will likely get home health services and/or home PT Delirium/cognitive impairment with depression -Known history per of nighttime wandering in home, worsening depressive symptoms in past 2 years, FMH of frontotemporal dementia -CTH- mild atrophy of frontal and temporal lobes b/l, -Neurology consult 11/17- recommended memantine for aid of behavioral control/c ognition -Continue thiamine -Continue Seroquel XR 50 mg -Continue PT -Memantine started today- per neurology, 10 mg qHS for 1 month then BID afterward -Pt will need outpatient neurology/psychiatry care Acute liver failure, resolved - Likely due to acetaminophen overdose. S/p NAC treatment - GI consulted- recommended transfer to tertiary care who did not consider her a successful transplant candidate - Cardiac echo/liver doppler negative - Autoimmune and infectious workup negative - Continue trending liver enzymes, improving transaminitis Malnutrition - 2 year history of weight loss and lack of appetite - Pt has lost approx 60 lbs since November 2019 - Daily standing weights to monitor weight gain - TSH, Free T4 wnl - Nutrition consulted- regular diet, Boost supplementation DVT ppx: Lovenox qAM FEN/GI: Regular diet as tolerated with boost supplementation. Code Status: DNR/DNI Dispo: med/surg, likely d/c to home with home health/PT Admission and Anticipated Discharge Date Admission Date: November 08, 2021 (2) Goals of care, counseling/discussion: (3) Tylenol overdose: (4) Malnutrition: Admission and Anticipated Discharge Date Admission Date: November 08, 2021 Supervising Physician Co-Signing Physician Notes I also saw the patient and discussed the case with the resident physician. I agree with the impression and plan as noted in the resident documentation. Upon my examination, the patient is lying supine in bed. She will answer my questions with a single word; she will briefly open her eyes upon command. She denies pain. Exam 125/77, 76, 20, 36.7, 97% room air Awake. Conversation as noted above Heart regular rate and rhythm Lungs clear with nonlabored respirations Assessment and Plan Cognitive/behavioral changes, acute delirium in setting of dementia, possibly frontal temporal dementia For now the Seroquel seems to be working well. Other considerations would be sertraline and memantine, perhaps in combination to the Seroquel. Will need outpatient neurology and or psychiatry consultations for continued care. The is aware that overall, the condition is progressive. Fortunately now, she is stabilized to the point where she can be cared for at home. Else see resident documentation as noted. Subjective No acute events overnight, pt doing well. Slept well. Denies any acute concerns, states she would like to go home Review of Systems Review of Systems: Per Subjective Physical Exam Constitutional: WD/WN, vitals as above comfortable ENMT: external ear and nose normal, oropharynx normal Neck: normal visual inspection Respiratory: normal respiratory effort, lungs clear to auscultation Cardiovascular: RRR, no murmur, no edema Gastrointestinal (Abdomen): normal bowel sounds, soft, nontender, no hepatosplenomegaly Skin: no rashes, warm and dry Psychiatric: AOx3, stable neutral affect with limited range, concrete thought processing, single-word responses Results & Data Results & Data ([facility]) Vital Signs (Past 12 Hours) Vital Signs Temp Pulse Pulse Resp BP BP Pulse Ox 11/28/21 07:30 36.7 C 76 20 125/77 97 11/28/21 00:16 36.6 C 78 12 128/78 95 Resident Activity Tracking Resident Involvement: Resident Care Provided Care Provided: Adult Hospital Medicine
[2021-11-28] MEDS: MEMANTINE HCL 10 MG TAB PO SCH (20:34)
[2021-11-28] MEDS: QUEtiapine FUMARATE 50 MG TABCR PO SCH (20:34)
--- NOTE | 2021-11-29 08:24 | Hospitalist Progress Note ---
Date of Service November 29, 2021 Assessment & Plan (1) Cognitive and behavioral changes: Plan: 75 yo F with PMH HLD, HTN, DVT, depression, anxiety, cognitive impairment at baseline admitted for encephalopathy after accidental ingestion of excessive acetaminophen Goals of care -Given pt's medical illnesses, there is significant limitation in independent completion of ADLs which has progressed over past year and limited ability for self-care -Per conversation with , he is willing to care for her if her eating improves -Case management following- dementia gallagher placement unlikely given financial strain on family, looking for potential SNF placement -Given pt's recent improvement in mentation and behavioral control, may be safe to d/c to home with care by -Plan at present is d/c home once family can prepare home appropriately. Will likely get home health services and/or home PT Delirium/cognitive impairment with depression -Known history per of nighttime wandering in home, worsening depressive symptoms in past 2 years, FMH of frontotemporal dementia -CTH- mild atrophy of frontal and temporal lobes b/l, -Neurology consult 11/17- recommended memantine for aid of behavioral control/c ognition -Continue thiamine -Continue Seroquel XR 50 mg -Continue PT -Continue memantine (initiated 11/28)- per neurology, 10 mg qHS for 1 month then BID afterward -Pt will need outpatient neurology/psychiatry care Acute liver failure, resolved - Likely due to acetaminophen overdose, is now s/p NAC treatment - GI consulted- recommended transfer to tertiary care who did not consider her a successful transplant candidate - Cardiac echo/liver doppler negative - Autoimmune and infectious workup negative - Continue trending liver enzymes, improving transaminitis Malnutrition - 2 year history of weight loss and lack of appetite - Pt has lost approx 60 lbs since November 2019 - Daily standing weights to monitor weight gain - TSH, Free T4 wnl - Nutrition consulted- regular diet, Boost supplementation DVT ppx: Lovenox qAM FEN/GI: Regular diet as tolerated with boost supplementation. Code Status: DNR/DNI Dispo: med/surg, likely d/c to home with home health/PT Admission and Anticipated Discharge Date Admission Date: November 08, 2021 (2) Goals of care, counseling/discussion: (3) Tylenol overdose: (4) Malnutrition: Admission and Anticipated Discharge Date Admission Date: November 08, 2021 Supervising Physician Co-Signing Physician Notes I also saw the patient and discussed the case with the resident physician. I agree with the impression and plan as noted in the resident documentation. Upon my examination, the patient is lying supine in bed. She is a bit more interactive today, answers questions with short 3-4 word sentences. Briefly smiles. Exam 138/81, 80, 18, 36.3, 96% room air Awake. Conversation as noted above Heart regular rate and rhythm Lungs clear with nonlabored respirations Assessment and Plan Cognitive/behavioral changes, acute delirium in setting of dementia, possibly frontal temporal dementia For now the Seroquel seems to be working well. Memantine added yesterday. Will need outpatient neurology and or psychiatry consultations for continued care. The is aware that overall, the condition is progressive. Fortunately now, she is stabilized to the point where she can be cared for at home. Else see resident documentation as noted. Subjective No acute events overnight, pt doing well. Slept well. Denies any acute concerns, states she would like to go home Review of Systems Review of Systems: Per Subjective Physical Exam Constitutional: WD/WN, vitals as above comfortable ENMT: external ear and nose normal, oropharynx normal Neck: normal visual inspection Respiratory: normal respiratory effort, lungs clear to auscultation Cardiovascular: RRR, no murmur, no edema Gastrointestinal (Abdomen): normal bowel sounds, soft, nontender, no hepatosplenomegaly Skin: no rashes, warm and dry Neurologic: AOx3, increased abundance of speech Results & Data Results & Data ([facility]) Vital Signs (Past 12 Hours) Vital Signs Temp Pulse Resp BP Pulse Ox 11/28/21 22:37 36.3 C L 80 18 138/81 96 Resident Activity Tracking Resident Involvement: Resident Care Provided Care Provided: Adult Hospital Medicine
[2021-11-29] MEDS: SENNA 8.6 MG TAB PO SCH (10:04)
[2021-11-29] MEDS: POLYETHYLENE (MIRALAX) 17 GM PACK PO SCH ×2 (10:04→21:40)
[2021-11-29] MEDS: ENOXAPARIN INJ 30 MG/0.3 ML SYR SQ SCH (10:04)
[2021-11-29] MEDS: THIAMINE HCL 100 MG in SYRINGE 9 ML IV SCH (10:05)
[2021-11-29] MEDS: MEMANTINE HCL 10 MG TAB PO SCH (21:40)
[2021-11-29] MEDS: QUEtiapine FUMARATE 50 MG TABCR PO SCH (21:40)
[2021-11-30 06:15] LABS: Creatinine Clr Calc Pharmacy 113.8 ml/min; Est GFR (African American) 121.4 ml/min; Est GFR (Non-African American) 104.7 ml/min
--- NOTE | 2021-11-30 07:05 | Hospitalist Progress Note ---
Date of Service November 30, 2021 Assessment & Plan (1) Cognitive and behavioral changes: Plan: 75 yo F with PMH HLD, HTN, DVT, depression, anxiety, cognitive impairment at baseline admitted for encephalopathy after accidental ingestion of excessive acetaminophen Goals of care -Given pt's medical illnesses, there is significant limitation in independent completion of ADLs which has progressed over past year and limited ability for self-care -Per conversation with , he is willing to care for her if her eating improves -Case management following- dementia gallagher placement unlikely given financial strain on family, [facility] would have a bed available . -Given pt's recent improvement in mentation and behavioral control, may be safe to d/c to home with care by - seems to want to D/C home but is currently feeling anxious about 28/03 watch and trying to get help in watching Sunita when he needs a break. He stated he thinks Sunita may deteriorate at a faster rate and pass away if at a SNF as opposed to home. Will likely need home health services and/or home PT if he decides he has adequate care at home to take care of her. Delirium/cognitive impairment with depression -Known history per of nighttime wandering in home, worsening depressive symptoms in past 2 years, H of frontotemporal dementia -CTH- mild atrophy of frontal and temporal lobes b/l, -Neurology consult 11/17- recommended memantine for aid of behavioral control/cognition -Continue thiamine -Continue Seroquel XR 50 mg -Continue PT -Continue memantine (initiated 11/28)- per neurology, 10 mg qHS for 1 month then BID afterward -Pt will need outpatient neurology/psychiatry care Acute liver failure, resolved - Likely due to acetaminophen overdose, is now s/p NAC treatment - GI consulted- recommended transfer to tertiary care who did not consider her a successful transplant candidate - Cardiac echo/liver doppler negative - Autoimmune and infectious workup negative - Continue trending liver enzymes, improving transaminitis Malnutrition - 2 year history of weight loss and lack of appetite - Pt has lost approx 60 lbs since November 2019 - Daily standing weights to monitor weight gain - TSH, Free T4 wnl - Nutrition consulted- regular diet, Boost supplementation DVT ppx: Lovenox qAM FEN/GI: Regular diet as tolerated with boost supplementation. Code Status: DNR/DNI Dispo: med/surg, likely d/c to home with home health/PT Admission and Anticipated Discharge Date Admission Date: November 08, 2021 (2) Goals of care, counseling/discussion: (3) Tylenol overdose: (4) Malnutrition: Admission and Anticipated Discharge Date Admission Date: November 08, 2021 Supervising Physician Co-Signing Physician Notes I personally examined the patient and verified all faust points of history and exam, discussed case, and agree with decision making with Dr Alexander sleeping comfortably. no new issues noted. Dr Alexander discussed disposition w - goal cautiously for home now vitals noted nad heent nc at mmm breathing unlabored no accessory muscles good effort skin no rashes no pallor or icterus Cognitive/behavioral changes, acute delirium in setting of dementia, possibly frontal temporal dementia For now the Seroquel seems to be working well. Memantine added as well. Will need outpatient neurology and or psychiatry consultations for continued care. The is aware that overall, the condition is progressive. Fortunately now, she is stabilized to the point where she can be cared for at home - dc home once he has everything he needs set up. otherwise as above. Subjective No overnight events. Patient has no complaints this morning. Physical Exam Constitutional: WD/WN, vitals as above Patient in bed with eyes closed but perks up with discussion about her dog and family. Eyes: PERRL, conjunctivae normal, anicteric sclerae Respiratory: normal respiratory effort, lungs clear to auscultation Cardiovascular: RRR, no murmur, no edema Gastrointestinal (Abdomen): normal bowel sounds, soft, nontender, no hepatosplenomegaly Results & Data Results & Data ([facility]) Vital Signs (Past 12 Hours) Vital Signs Temp Pulse Resp BP Pulse Ox 11/29/21 23:28 36.8 C 77 20 118/72 96 Resident Activity Tracking Resident Involvement: Resident Care Provided Care Provided: Adult Hospital Medicine
[2021-11-30] MEDS: ENOXAPARIN INJ 30 MG/0.3 ML SYR SQ SCH (07:54)
[2021-11-30] MEDS: SENNA 8.6 MG TAB PO SCH (07:55)
[2021-11-30] MEDS: POLYETHYLENE (MIRALAX) 17 GM PACK PO SCH ×2 (07:55→20:25)
[2021-11-30] MEDS: THIAMINE HCL 100 MG in SYRINGE 9 ML IV SCH (07:55)
--- NOTE | 2021-11-30 17:33 | Billing Data ---
Date of Service November 30, 2021 Coding Level of Care Code 44515 Subseq Hosp Care Lvl 1
[2021-11-30] MEDS: QUEtiapine FUMARATE 50 MG TABCR PO SCH (20:25)
[2021-11-30] MEDS: MEMANTINE HCL 10 MG TAB PO SCH (20:25)
--- NOTE | 2021-12-01 07:13 | Hospitalist Progress Note ---
Date of Service December 01, 2021 Assessment & Plan (1) Cognitive and behavioral changes: Plan: 75 yo F with PMH HLD, HTN, DVT, depression, anxiety, cognitive impairment at baseline admitted for encephalopathy after accidental ingestion of excessive acetaminophen Goals of care -Given pt's medical illnesses, there is significant limitation in independent completion of ADLs which has progressed over past year and limited ability for self-care -Per conversation with , he is willing to care for her if her eating improves -Case management following- dementia gallagher placement unlikely given financial strain on family, [facility] would have a bed available . Delirium/cognitive impairment with depression -Known history per of nighttime wandering in home, worsening depressive symptoms in past 2 years, FMH of frontotemporal dementia -CTH- mild atrophy of frontal and temporal lobes b/l, -Neurology consult 11/17- recommended memantine for aid of behavioral control/cognition -Continue thiamine -Continue Seroquel XR 50 mg -Continue PT -Continue memantine (initiated 11/28)- per neurology, 10 mg qHS for 1 month then BID afterward -Pt will need outpatient neurology/psychiatry care Acute liver failure, resolved - Likely due to acetaminophen overdose, is now s/p NAC treatment - GI consulted- recommended transfer to tertiary care who did not consider her a successful transplant candidate - Cardiac echo/liver doppler negative - Autoimmune and infectious workup negative - Continue trending liver enzymes, improving transaminitis Malnutrition - 2 year history of weight loss and lack of appetite - Pt has lost approx 60 lbs since November 2019 - Daily standing weights to monitor weight gain - TSH, Free T4 wnl - Nutrition consulted- regular diet, Boost supplementation DVT ppx: Lovenox qAM FEN/GI: Regular diet as tolerated with boost supplementation. Code Status: DNR/DNI Dispo: med/surg, likely d/c to home with home health/PT Admission and Anticipated Discharge Date Admission Date: November 08, 2021 (2) Goals of care, counseling/discussion: (3) Tylenol overdose: (4) Malnutrition: Admission and Anticipated Discharge Date Admission Date: November 08, 2021 Supervising Physician Co-Signing Physician Notes I personally examined the patient and verified all faust points of history and exam, discussed case, and agree with decision making with Dr Alexander sleeping comfortably. no new issues noted. Dr Alexander continues to discuss disposition w vitals noted nad heent nc at mmm breathing unlabored no accessory muscles good effort skin no rashes no pallor or icterus Cognitive/behavioral changes, acute delirium in setting of dementia, possibly frontal temporal dementia For now the Seroquel seems to be working well. Memantine added as well. Will need outpatient neurology and or psychiatry consultations for continued care. The is aware that overall, the condition is progressive. Fortunately now, she is stabilized to the point where she can be cared for at home - dc home once he has everything he needs set up - however in further discussions w Dr Alexander not clear that has clear definitions of "what he needs set up" -- may be better to utilize SNF at least for now. otherwise as above. Subjective No overnight events. Patient feeling well this morning without much change from yesterday. Physical Exam Constitutional: WD/WN, vitals as above Eyes: PERRL, conjunctivae normal, anicteric sclerae Respiratory: normal respiratory effort, lungs clear to auscultation Cardiovascular: RRR, no murmur, no edema Gastrointestinal (Abdomen): normal bowel sounds, soft, nontender, no hepatosplenomegaly Results & Data Results & Data ([facility]) Vital Signs (Past 12 Hours) Vital Signs Temp Pulse Resp BP Pulse Ox 11/30/21 22:05 36.7 C 71 18 109/69 96 Resident Activity Tracking Resident Involvement: Resident Care Provided Care Provided: Adult Hospital Medicine
[2021-12-01] MEDS: SENNA 8.6 MG TAB PO SCH (08:26)
[2021-12-01] MEDS: ENOXAPARIN INJ 30 MG/0.3 ML SYR SQ SCH (08:27)
[2021-12-01] MEDS: THIAMINE HCL 100 MG in SYRINGE 9 ML IV SCH (08:27)
[2021-12-01] MEDS: POLYETHYLENE (MIRALAX) 17 GM PACK PO SCH ×2 (11:25→20:30)
--- NOTE | 2021-12-01 17:48 | Billing Data ---
Date of Service December 01, 2021 Coding Level of Care Code 97062 Subseq Hosp Care Lvl 1
[2021-12-01] MEDS: QUEtiapine FUMARATE 50 MG TABCR PO SCH (20:30)
[2021-12-01] MEDS: MEMANTINE HCL 10 MG TAB PO SCH (20:30)
--- NOTE | 2021-12-02 06:42 | Hospitalist Progress Note ---
Date of Service December 02, 2021 Assessment & Plan (1) Cognitive and behavioral changes: Plan: 75 yo F with PMH HLD, HTN, DVT, depression, anxiety, cognitive impairment at baseline admitted for encephalopathy after accidental ingestion of excessive acetaminophen Goals of care -Given pt's medical illnesses, there is significant limitation in independent completion of ADLs which has progressed over past year and limited ability for self-care -Per conversation with , he is willing to care for her if her eating improves -Case management following- dementia gallagher placement unlikely given financial strain on family, [facility] would have a bed available . Delirium/cognitive impairment with depression -Known history per of nighttime wandering in home, worsening depressive symptoms in past 2 years, FMH of frontotemporal dementia -CTH- mild atrophy of frontal and temporal lobes b/l, -Neurology consult 11/17- recommended memantine for aid of behavioral control/cognition -Continue thiamine -Continue Seroquel XR 50 mg -Continue PT -Continue memantine (initiated 11/28)- per neurology, 10 mg qHS for 1 month then BID afterward -Pt will need outpatient neurology/psychiatry care Acute liver failure, resolved - Likely due to acetaminophen overdose, is now s/p NAC treatment - GI consulted- recommended transfer to tertiary care who did not consider her a successful transplant candidate - Cardiac echo/liver doppler negative - Autoimmune and infectious workup negative - Continue trending liver enzymes, improving transaminitis Malnutrition - 2 year history of weight loss and lack of appetite - Pt has lost approx 60 lbs since November 2019 - Daily standing weights to monitor weight gain - TSH, Free T4 wnl - Nutrition consulted- regular diet, Boost supplementation DVT ppx: Lovenox qAM FEN/GI: Regular diet as tolerated with boost supplementation. Code Status: DNR/DNI Dispo: med/surg, likely d/c to home with home health/PT Admission and Anticipated Discharge Date Admission Date: November 08, 2021 (2) Goals of care, counseling/discussion: (3) Tylenol overdose: (4) Malnutrition: Admission and Anticipated Discharge Date Admission Date: November 08, 2021 Subjective No overnight events. Physical Exam Constitutional: WD/WN, vitals as above Eyes: PERRL, conjunctivae normal, anicteric sclerae Respiratory: normal respiratory effort, lungs clear to auscultation Cardiovascular: RRR, no murmur, no edema Gastrointestinal (Abdomen): normal bowel sounds, soft, nontender, no hepatosplenomegaly Results & Data Results & Data ([facility]) Vital Signs (Past 12 Hours) Vital Signs Temp Pulse Resp BP Pulse Ox 12/01/21 22:32 36.7 C 72 14 106/70 95
[2021-12-02] MEDS: THIAMINE HCL 100 MG in SYRINGE 9 ML IV SCH (09:14)
[2021-12-02] MEDS: ENOXAPARIN INJ 30 MG/0.3 ML SYR SQ SCH (09:15)
[2021-12-02] MEDS: POLYETHYLENE (MIRALAX) 17 GM PACK PO SCH (09:15)
[2021-12-02] MEDS: SENNA 8.6 MG TAB PO SCH (09:15)
--- NOTE | 2021-12-02 12:14 | Electrocardiogram Report ---
Test Reason : Blood Pressure : / mmHG Vent. Rate : 086 BPM Atrial Rate : 086 BPM P-R Int : 168 ms QRS Dur : 082 ms QT Int : 368 ms P-R-T Axes : 068 036 059 degrees QTc Int : 440 ms Normal sinus rhythm Low voltage QRS Borderline ECG When compared with ECG of 22-NOV-2021 04:44, No significant change was found Confirmed by Reese Watson ([id number] on 12/02/2021 12:13:49 PM Referred By: REFERRED SELF Confirmed By:Reese Watson
--- NOTE | 2021-12-02 15:21 | Discharge Summary ---
Date of Service December 02, 2021 Admission HPI Per Admitting Provider Patient is a 75-year-old female with a history of hyperlipidemia, hypertension, depression/anxiety presenting here today via ambulance from her home. EMS report the patient evidently took too many tablets of medication overnight and today. They report the patient took 8 tablets of [place] plus, and approximately half bottle of Tylenol extended release (650mg XR -- bottle 24 cap size) and Aleve (220mg -- 100 cap size).EMS reports the patient took the [place] around midnight and Tylenol and Aleve over the course of the last several hours this afternoon.Upon my exam, patient is withdrawn and georgette herring participates in history, she states she does not remember when or why she took the medications, also struggles to quantify the ingestion. She is otherwise without complaints, no fever/chills, nausea, vomiting, abdominal pain, chest pain, SOB, diarrhea, no SI/HI, no tinnitus. states that she had been in her usual state of health the past few days, although for the past year and a half or so, she has shown signs of cognitive decline. In ED, patient hemodynamically stable with VS within normal limits, A+O x3. CBC unremarkable, K+ 3.1, Mg++ 1.6. PT 13.6, INR 1.3; AG 13, lactate 2.7, ALT 99, AST 69. On VBG, pH 7.45, CO2 35. Tylenol level initially 225, 216 one hour later. Poison control contacted by ED, recommending institution of 21-hour NAC protocol given the significant Tylenol elevation and unclear exact ingestion time. Patient also received IVF, had K+ and Mg++ repleted. Hospitalist service was consulted for further evaluation and admission. Principal Diagnosis dementia Discharge Exam resting comfortably no distress breathing unlabored no accessory muscles skin without rashes pallor or icterus no neuro asymmetry at rest Discharge Data Allergies Allergy/AdvReac Type Severity Reaction Status Date / Time Fish Containing Products Allergy Intermediate FACIAL Verified 11/08/21 19:40 SWELLING - ANCHOVIES naproxen Allergy Intermediate HIVES AND Verified 11/08/21 19:40 FACIAL SWELLING estrogens, conjugated AdvReac Unknown DVT Verified 11/08/21 19:40 Consultations 11/08/21 20:33 ED Decision to Admit Stat 11/08/21 23:14 Consult Psychiatry Routine 11/10/21 08:14 Consult Gastroenterology Routine 11/15/21 17:09 Consult Neurology Routine Ordered Studies 11/08/21 18:41 CT head/brain wo con Stat 11/10/21 10:58 US duplex portal hepatic veins Routine 11/11/21 10:47 US liver Routine Hospital Course (1) Cognitive and behavioral changes: 75 yo F with PMH HLD, HTN, DVT, depression, anxiety, cognitive impairment at baseline admitted for encephalopathy after accidental ingestion of excessive acetaminophen Goals of care -Given pt's medical illnesses, there is significant limitation in independent completion of ADLs which has progressed over past year and limited ability for self-care -Per conversations with he shows significant ambivalence about her home situation - on the one hand he strongly desires to have her at home with him and care for her, but at the same time is understandably exhausted and overwhelmed with her care at home - ultimately with bed availability at [facility] (for a less restrictive environment and more therapy for the patient), she was discharged there - had been working on getting home situation to where he thought he could take care of her, but it was still not clear if he would be able to jaxson the necessary resources (particularly manpower for helping/respite care/etc) or over what timeline he could do so - so for now decision was made to transfer to [facility] - if is able to get resources to care for her at home then she could be discharged home from there (but again since it was not clear when/if he would be able to get what he needs, and a less restrictive environment was available, it was deemed appropriate to transfer to SNF at [facility] time) Delirium/cognitive impairment with depression -Known history per of nighttime wandering in home, worsening depressive symptoms in past 2 years, FMH of frontotemporal dementia -CTH- mild atrophy of frontal and temporal lobes b/l, -Neurology consult 11/17- recommended memantine for aid of behavioral control/cognition -Continue thiamine -Continue Seroquel XR 50 mg (follow periodic QTc) -Continue PT -Continue memantine (initiated 11/28)- per neurology, 10 mg qHS for 1 month then BID afterward -Pt will need outpatient neurology/psychiatry care Acute liver failure, resolved - Likely due to acetaminophen overdose, is now s/p NAC treatment - GI consulted- recommended transfer to tertiary care who did not consider her a successful transplant candidate - Cardiac echo/liver doppler negative - Autoimmune and infectious workup negative - periodic LFTs as outpt Malnutrition - 2 year history of weight loss and lack of appetite - Pt has lost approx 60 lbs since November 2019 - Daily standing weights to monitor weight gain - TSH, Free T4 wnl - Nutrition consulted- regular diet, Boost supplementation DVT ppx: Lovenox qAM utilized while inpatient FEN/GI: Regular diet as tolerated with boost supplementation. Code Status: DNR/DNI Dispo: [facility] Admission and Anticipated Discharge Date Admission Date: November 08, 2021 (2) Goals of care, counseling/discussion: (3) Tylenol overdose: (4) Malnutrition: Total Time Total Time Spent Total Time Spent (In Minutes): <30 Discharge Plan Discharge Items Patient Disposition: Transfer [facility] Reason For Visit: TYLENOL OVERDOSE Discharge Diagnosis: dementia Activity: Per Instructions section Non-emergency contact: Primary Care Provider Call non-emergency contact if: your symptoms worsen Follow-up/Referrals: Ranjan Bermudez III, CRNP [Primary Care Provider] - Diet: Regular Addtl Attending Provider Instructions: 75 yo F with pMHx HLD, HTN, DVT, depression, anxiety, cognitive impairment at baseline admitted for encephalopathy after accidental ingestion of excessive acetaminophen Delirium/cognitive impairment with depression -Known history per of nighttime wandering in home, worsening depressive symptoms in past 2 years, FMHx. of frontotemporal dementia -CTH- mild atrophy of frontal and temporal lobes b/l, -Neurology consulted - recommended memantine for aid of behavioral control/cognition -Continue thiamine -Continue Seroquel XR 50 mg (follow periodic EKG for QTc - today 12/02/21 Qtc was 440) -Continue PT -Continue memantine (initiated 11/28)- per neurology, 10 mg qHS for 1 month then BID afterward -Pt. will need outpatient neurology/psychiatry care Acute liver failure, resolved - Likely due to acetaminophen overdose, is now s/p NAC treatment - Cardiac echo/liver doppler negative - Autoimmune and infectious workup negative - Continue trending liver enzymes, improving transaminitis - recheck LFT's in 1-2 weeks Malnutrition - 2 year history of weight loss and lack of appetite - Pt has lost approx 60 lbs since November 2019 - Daily standing weights to monitor weight gain - TSH, Free T4 wnl - Nutrition consulted- regular diet, Boost supplementation Pending Studies at Discharge: No Stand-Alone Forms: My [facility] Skilled Items Patient informed of condition?: Yes DNR: Yes Discharge Level of Care: Skilled Communicable Disease: No Discharge Prognosis: Stable Lines: None Urinary Catheter: No Medications and DC Order Prescriptions: New sennosides [Senokot] 8.6 mg Tablet 8.6 mg PO QAM Qty: 30 RF: 0 polyethylene glycol 3350 [Miralax] 17 gram Powder In Packet 17 g PO BID Qty: 60 RF: 0 memantine [Namenda] 10 mg Tablet 10 mg PO HS Qty: 30 RF: 0 quetiapine [Seroquel XR] 50 mg Tablet Extended Release 24 Hr 50 mg PO HS Qty: 30 RF: 0 Discontinued ibuprofen [Advil] 200 mg Tablet 400 mg PO Q6H PRN (Reason: Pain) RF: 0 [place] Original 325-1,916-1,000 mg Tablet, Effervescent 2 tab PO UD PRN (Reason: ..) RF: 0 acetaminophen [Tylenol] 325 mg Capsule 650 mg PO QID PRN (Reason: Pain) RF: 0 Discharge Orders: Discharge Order (Routine); Ordered 12/02/21 Ordered By: Jerrell Nguyen Admission Data Admit Date/Time: 11/08/21 21:15 Attending Provider: Jerrell Nguyen Admit Provider: Uvaldo Mayes Primary Care Provider: Ranjan Bermudez III Other Providers: Uvaldo Mayes ; Opal Sevilla ; Kristina Cr ; Christina Vallejo ; Frederick Velasco ; Ivy,Nacho ; Robert Shepherd ; [facility] ; [facility] ; [facility], Other Interventions: Discharge Summary Assessment (RN) Last Done: 12/02/21 13:36 Coding Level of Care Code D/C DAY MANAGEMENT <30 MINS Diagnoses Cognitive and behavioral changes R41.89; R46.89 Goals of care, counseling/discussion Z71.89 Tylenol overdose T39.1X1A Malnutrition E46
== END 2021-12-02 16:59 | DRG 917 ==
LOC: ED 18:29 → 2W 21:15 → SUATTDRO 21:15 → 2W 22:41 → 2N 11-09 05:53 → 3N 11-19 20:13
DX: Z66 Do not resuscitate; T39.1X1A Poisoning by 4-Aminophenol derivatives, accidental (unintentional), initial encounter; E87.1 Hypo-osmolality and hyponatremia; R44.3 Hallucinations, unspecified; F41.8 Other specified anxiety disorders; F02.80 Dementia in other diseases classified elsewhere, unspecified severity, without behavioral disturbance, psychotic disturbance, mood disturbance, and anxiety; Z79.82 Long term (current) use of aspirin; K72.00 Acute and subacute hepatic failure without coma; G92.8 Other toxic encephalopathy; Z88.6 Allergy status to analgesic agent; E46 Unspecified protein-calorie malnutrition; R74.01 Elevation of levels of liver transaminase levels; G31.09 Other frontotemporal neurocognitive disorder; E87.6 Hypokalemia; Y92.019 Unspecified place in single-family (private) house as the place of occurrence of the external cause; E83.42 Hypomagnesemia